=== PATIENT | male | born 1940 | race Caucasian/White ===

== ENCOUNTER 2023-11-09 08:55 | Emergency (ER) | payer OTHER, SELFPAY ==
[2023-11-09 09:06] VITALS: BP 127/70
--- NOTE | 2023-11-09 09:14 | ED.GENMED ---
History of Present Illness
General
Chief Complaint: Breathing Problem
Source: patient
Exam Limitations: none
Time Seen by Provider: 11/09/23 09:03
Nursing documentation reviewed up to this point in time: agreed with
Travel History
Have you had any contact with someone who has COVID-19?: No
Do you have any symptoms of coronavirus? Fever > 100 degrees, chills, cough, shortness of breath, sore throat, loss of taste or smell, muscle aches, or headache?: Yes
Symptoms:: SOb, cough
History of Present Illness
History of Present Illness:
83-year-old male coming from [facility] assisted living history of chronic respiratory failure on 2 L O2 nasal cannula, pulmonary fibrosis, hypertension, colon cancer status postchemotherapy remotely presents for increased cough overnight.
Patient says that he may chronically have a slight cough but it seems worse. He says 'if I had had my Robitussin I would not be here.' He says he coughed all night. He tried to get mucus up and would only occasionally bring some mucus up. He did
not feel overwhelmingly short of breath but he did bump up his oxygen from 2 L to 3 L this morning. EMS says when they got there and patient was on 2 L and satting 88% so they bumped him up to 4 or 5 L.
Patient had mild cyanosis of his lips according to EMS. He is not having any pain anywhere, leg swelling, fevers or chills, sore throat, vomiting or diarrhea.
he has been stable on 2L in
no fever, chills, chst pain, shortness of breath, vomiting, diarrhea, leg swelling, waekness
pt says he just wanted robitussin for his cough but is no longer couhging now
he is due for his morning duoneb
Past History
Past History
ED Past Medical History: Cancer (colon), COPD (pulmonary fibrosis), HTN, Hypercholesterolemia, NIDDM, Psychiatric (dementia) and Other (aortic aneurysm, BPH)
Social History
Tobacco: Non-smoker
Alcohol: None
Drug: None
Living: intermediate
Review of Systems
Review of Systems
Allergies reviewed?: Yes
All Other Systems: Not applicable
Phy Exam
Physical Exam
Physical Exam:
GENERAL: Alert , in no apparent distress
EYE: pupils equal and reactive
NECK: Supple
ENT: b/l TM s clear, pharynx erythematous but no tonsillar hypertrophy or exudates
Mild cyanosis of his lips
CARDIAC: Regular rate and rhythm, no edema
LUNGS: Crackles in the right lung posteriorly, end expiratory wheezes faintly, moving good air, not tachypneic, no cough while I was examining the patient
ABDOMEN: Soft, without focal tenderness, no r/g, no cvat, normal bowel sounds
NEUROLOGICAL: Alert and oriented, no focal neuro deficits
SKIN: Warm and dry, skin intact.
MUSCULOSKELETAL: No edema, well perfused.
PSYCH: Normal and appropriate interaction.
Scores
Heart Failure Risk
Heart Failure Risk Score: Not Applicable
Course
Orders/Labs/Results
Orders:
Orders
11/09/23 09:11
Electrocardiogram (*1) Urgent
Reason for Study: Shortness of Breath
EKG- Treatment ONCE
Ipratropium/Albuterol Sulfate [Duoneb] 3 ml INH R NOW STA
CR Chest - 2 Views Urgent
Comment:
Reason For Exam: sob, cough
11/09/23 09:24
COVID-19 Antigen Urgent
Source: Nasal Swab
Complete Blood Count/With Diff Urgent
Comprehensive Metabolic Panel Urgent
NT-proBNP Urgent
Troponin I Urgent
Comment: ADD ON
Influenza A+B Rapid Molecular Urgent
WALKER Source: Nasal Swab
Specimen Description:
11/09/23 09:38
Add On- LAB Urgent
Tests Added?: troponin
11/09/23 11:06
Guaifenesin/Dextromethorphan [Robitussin Dm] 5 ml PO NOW STA
Abnormal Lab Results
11/09/23
09:24
RBC 4.17 L 10^6/uL
(4.70-6.10)
Hgb 12.9 L g/dL
(13.0-18.0)
Hct 38.0 L %
(39.0-52.0)
Absolute Lymphs (auto) 0.4 L 10^3/uL
(1.2-3.4)
Neutrophils % 80.8 H %
(42.2-75.2)
Lymphocytes % 7.0 L %
(20.5-51.1)
Carbon Dioxide 31 H mmol/L
(22-30)
11/09/23 09:24
11/09/23 09:24
Vital Signs
Initial and Last Documented VS:
Initial Vital Signs
Temp Pulse Resp BP Pulse Ox
97.5 F 67 20 127/70 98
11/09/23 09:06 11/09/23 09:06 11/09/23 09:06 11/09/23 09:06 11/09/23 09:06
Last Documented Vital Signs
Temp Pulse Resp BP Pulse Ox
97.5 F 74 25 131/86 97
11/09/23 09:06 11/09/23 11:00 11/09/23 11:00 11/09/23 11:00 11/09/23 11:25
MDM/Problems Addressed
Differential Diagnosis Includes:
pneumonia, fibrosis, copd, PE
MDM/Problems Addressed:
83 y/o M with pulm fibrosis on chronic o2 2L
initially said he was up in the night coughing and wishes he had cough medication and if he had, he wouldn't have come in
but he was found to be more SOB and hypoxic today for RN at [facility]
PT NOW REMEMBERS THAT HIS O2 FELL OFF OVERNIGHT, WHEN HE WOKE UP HE WASN'T WEARING IT. so he put himself up to 3L and then was stil lhypoxic for RN so they called 911
pt has been on 5L and stable
turned down to 2L and watched for several hours, pulse ox 96%
no fever
well appearing
lungs with chronic chagnes related to pulm fibrosis
cxr indep reviewed by me and i spoke with rads, no new PNA
wbc normal
flu and covid neg
bnp normla
ekg subtle t wave flattening/inverion but neg trop
Discussed the possibility that it could be a PE though unlikely since the patient has been turned down to his 2 L and has been satting 96% with no shortness of breath and no pleuritic pain. He also has no cough here. He was given a DuoNeb and has
been doing very well. He would like to go home. I spoke with the nurse at [facility] to make her aware that if he became persistently hypoxic I would be concerned about a blood clot and he should return. Otherwise this was likely because the
patient had his oxygen off for an unknown timeframe overnight
*Critical Care Note
Total Time (30-74mins, 75-104mins- exclusive of procedures): Not Applicable
ED Attending Note
-
Portions of this chart may have been created with voice recognition software.� Occasional wrong word or��sound alike� substitutions may have occurred due to the inherent limitations of voice recognition software.
Discharge Plan
Departure
Patient Disposition: Home (Routine Discharge)
Date of Disposition: 11/09/23
Time of Disposition: 11:07
Patient with high blood pressure during this ER visit?: No
Condition: Fair
Covid-19: Negative COVID-19
Discharge Problem:
Cough, Chronic hypoxic respiratory failure
Instructions: Idiopathic Pulmonary Fibrosis (DC)
Prescriptions:
New
guaifenesin 100 mg/5 mL liquid
200 mg PO Q6H PRN (Reason: Cough) Qty: 473 0RF
No Action
sennosides [senna] 8.6 mg Tablet
17.2 mg PO DAILY
Rx Instructions:
08/04/2023, hold for loose stool.
acetaminophen [Tylenol] 325 mg Tablet
325 mg PO Q4HPRN PRN (Reason: mild pain/fever)
polyethylene glycol 3350 [Miralax] 17 gram Powder In Packet
17 g PO DAILY
tamsulosin 0.4 mg Capsule
0.4 mg PO HS
simethicone 80 mg Tablet,Chewable
80 mg PO Q6HPRN PRN (Reason: abdominal discomfort)
midodrine 10 mg Tablet
10 mg PO TID
Rx Instructions:
08/04/2023, hold for systolic BP greater than 150.
rosuvastatin 40 mg Tablet
40 mg PO HS
Systane (PF) 0.4-0.3 % Dropperette
1 drp BOTH EYES BID
ipratropium-albuterol 0.5 mg-3 mg(2.5 mg base)/3 mL Solution For Nebulization
3 ml INHALATION R BID
melatonin 3 mg Tablet
3 mg PO HS PRN (Reason: sleep)
docusate sodium [Colace] 100 mg Capsule
100 mg PO DAILY
celecoxib 100 mg Capsule
100 mg PO DAILY
fluticasone propionate 50 mcg/actuation [place],Suspension
1 spray INTRANASAL Q6HPRN PRN (Reason: allergies)
fludrocortisone 0.1 mg Tablet
0.2 mg PO DAILY
ezetimibe [Zetia] 10 mg Tablet
10 mg PO HS
levocetirizine 5 mg Tablet
5 mg PO HS
cholecalciferol (vitamin D3) [Vitamin D3] 50 mcg (2,000 unit) Capsule
50 mcg PO DAILY
potassium chloride 20 mEq Tablet Extended Release
20 meq PO DAILY
magnesium oxide 400 mg magnesium Tablet
400 mg PO DAILY
pantoprazole 40 mg Tablet,Delayed Release (Dr/Ec)
40 mg PO DAILY Qty: 30 0RF
Referrals:
Marques Lambert MD [Family Provider] - Follow up in 2-3 days
Activity Restrictions/Additional Instructions:
You had blood work and an x-ray which were reassuring that this is not pneumonia. You had recalled that you your oxygen fell off overnight and when he woke up you are coughing more and needed more oxygen than usual but we were able to bump you back
down to your 2 L and you did well. Your x-ray did not show any signs of pneumonia and your blood work was reassuring. Your EKG was subtly changed but you had no signs of a heart attack. If you were to have worsening shortness of breath, the need
for more oxygen, painful breathing etc. we could consider that this could be due to a blood clot and you would need evaluation for that. Please return immediately for any of those symptoms. Otherwise wear your 2 L of oxygen, we gave you a DuoNeb
for your lungs and you sound better. You can use Robitussin 2-3 times a day as needed for cough. Return to the ER for any concerns
Interventions
Interventions:
*Risk Screen - Suicide Last Done: 11/09/23 09:11
*Neglect/Abuse Screening Last Done: 11/09/23 09:11
ED- Fall Risk Assessment Last Done: 11/09/23 09:15
*ED COVID-19 Vaccine History Last Done: 11/09/23 09:15
*Nursing Disposition Last Done: 11/09/23 11:43
ED- Cardiac Assessment Last Done: 11/09/23 09:15
ED- Pulmonary Assessment Last Done: 11/09/23 09:15
Discharge Date and Time
Discharge Date/Time: 11/09/23 11:44
[2023-11-09] MEDS: DUONEB 3 ML INH (09:21)
[2023-11-09 09:34] LABS: % Basophils 0.5 % (0-2); % Eosinophils 2.4 % (0-6); % Immature Granulocytes 0.3 % (0-0.5); % Neutrophils 80.8 % (42.2-75.2); Absolute Eosinophils 0.2 10^3/uL (0-0.7); Absolute Lymphocytes 0.4 10^3/uL (1.2-3.4); Absolute Monocytes 0.6 10^3/uL (0.1-0.6); Hemoglobin 12.9 g/dL (13.0-18.0); Mean Corp Hgb Conc. 33.9 g/dL (33.0-37.0); Mean Corpuscular Hgb 30.9 pg (27.0-31.0); Mean Corpuscular Volume 91.1 fL (80.0-94.0); Mean Platelet Volume 8.6 fL (7.4-10.4); Nucleated Red Blood Cells % 0 % (-); Platelet Count 150 10^3/uL (130-400); Red Blood Cell Count 4.17 10^6/uL (4.70-6.10); Red Cell Dist. Width 13.6 % (11.5-14.5); White Blood Cell Count 6.1 10^3/uL (4.8-10.8)
[2023-11-09 09:45] LABS: ALT (SGPT) 21 U/L (0-50); AST (SGOT) 31 U/L (17-59); Albumin 3.7 g/dl (3.5-5.0); Alkaline Phosphatase 101 U/L (38-126); Blood Urea Nitrogen 13 mg/dl (9-20); COVID-19 Antigen Negative (Negative); Calcium 8.9 mg/dl (8.4-10.2); Carbon Dioxide 31 mmol/L (22-30); Chloride 101 mmol/L (98-107); Glucose 98 mg/dl (70-99); Potassium 3.7 mmol/L (3.5-5.1); Sodium 138 mmol/L (135-145); Total Protein 6.9 g/dl (6.3-8.2); eGFR > 60.00
[2023-11-09 09:52] LABS: NT-proBNP 209 pg/ml
[2023-11-09 10:05] VITALS: BP 141/79
[2023-11-09 10:16] LABS: Troponin I < 0.012 ng/ml
[2023-11-09 11:00] VITALS: BP 131/86
[2023-11-09] MEDS: ROBITUSSIN DM 5 ML PO (11:17)
== END 2023-11-09 11:44 | disposition home or self-care (01) ==
LOC: EMR 08:55
PROVIDERS: Physician Assistant; EMERGENCY PHYSICIAN Emergency Medicine; FAMILY PHYSICIAN Internal Medicine
DX: R05.9 Cough, unspecified (principal); J96.11 Chronic respiratory failure with hypoxia; J84.10 Pulmonary fibrosis, unspecified; Z11.52 Encounter for screening for COVID-19; Z99.81 Dependence on supplemental oxygen
CPT/HCPCS: 99285; 94640; 71046; 80053; 83880; 84484; 85025; 87502; 87811; 93005

== ENCOUNTER 2023-11-12 09:00 | Inpatient (IN) | payer OTHER, SELFPAY ==
[2023-11-12] VITALS (20 sets, daily range): BP systolic 118–151; BP diastolic 65–100; PULSE 70–96; O2SAT 97; BMI 23.4
--- NOTE | 2023-11-12 06:30 | ED.GENMED ---
History of Present Illness
General
Chief Complaint: Fall
Source: patient
Exam Limitations: none
Time Seen by Provider: 11/12/23 06:06
Nursing documentation reviewed up to this point in time: agreed with
Travel History
Have you had any contact with someone who has COVID-19?: No
Do you have any symptoms of coronavirus? Fever > 100 degrees, chills, cough, shortness of breath, sore throat, loss of taste or smell, muscle aches, or headache?: No
History of Present Illness
History of Present Illness:
[facility] unwitnessed syncopal episode, shortly prior to arrival. Patient states that he was walking back to his bed from restroom, when he 'passed out'. Patient knew that he was about to pass out, but does not
recall any preceding symptoms, i.e. dizziness/chest pain/shortness of breath/palpitations/nausea. Patient's spouse witnessed his fall and called for assistance. Patient feels as though he woke up immediately after hitting the floor. Patient is
only complaining of right big toe 'discomfort'. Denies headache. Denies dizziness. Denies blurred vision. Denies loss of sensation or weakness. Denies chest pain or shortness of breath. Denies nausea sensation. Denies recent illness. Patient
states that he has been eating well, but is unsure if he is drinking of water. Patient also reports having had similar episode 1 year ago, attributed to use of Flomax. Of note, patient was evaluated in ED 3 days ago secondary to hypoxia associated
with nonproductive cough. After evaluation, patient was discharged back to jail. Patient has history of COPD and wears 2 L of oxygen at all times. Today, upon arrival, patient is found to have initial pulse ox of 77%, improved with
increased oxygen.
Past History
Past History
ED Past Medical History: Cancer (colon), COPD (pulmonary fibrosis), HTN, Hypercholesterolemia, NIDDM, Psychiatric (dementia) and Other (aortic aneurysm, BPH)
Social History
Tobacco: Non-smoker
Alcohol: None
Drug: None
Living: jail
Review of Systems
Review of Systems
Allergies reviewed?: Yes
All Other Systems: ROS reviewed and negative except as documented in HPI and ROS
Constitutional: Reports no symptoms; Denies fever
EENT: Reports no symptoms
Respiratory: Reports trouble breathing; Denies cough
Cardiac: Reports syncope; Denies chest pain, diaphoresis or palpitations
ABD/GI: Reports no symptoms; Denies abdominal pain or nausea
: Reports no symptoms
Musculoskeletal: Reports other (toe pain)
Skin: Reports other (forehead abrasion)
Neurological: Reports no symptoms; Denies dizzy or headache
Phy Exam
Physical Exam
Physical Exam:
Physical Exam
General: mild distress, not acutely ill. afebrile
Head: superficial abrasion noted over right eyebrow without active bleeding. eomi
Neck: supple. normal range of motion.
Heart: s1/s2 regular rate and rhythm, no murmur. equal radial pulses.
Lungs: mild respiratory distress. diminished breath sounds bilaterally. mild right flank/upper back tenderness at level of rib#5-6, without crepitus, swelling/erythema/ecchymosis.
Abdomen: normal bowel sounds. not tender.
Neuro: alert and oriented. no focal neurological deficits
Skin: no rash
Psychiatric: well kept. interactive and cooperative
Extremities: no edema. no calf tenderness.
Course
Orders/Labs/Results
Orders:
Orders
11/12/23 Breakfast
Regular
At Your Request: Full Participation
11/12/23 06:07
Electrocardiogram (*1) Urgent
Reason for Study: Fatigue / Weakness
11/12/23 06:08
EKG- Treatment ONCE
11/12/23 06:30
CT Chest Pe Study Urgent
Comment:
Reason For Exam: hypoxia with syncope
CT Head W/o Iv Contrast Urgent
Comment:
Reason For Exam: trauma
11/12/23 06:40
CR Toe(s) Min 2 Vw Right Urgent
Comment:
Reason For Exam: trauma
Indicate Which Toe:: Great
11/12/23 06:48
Complete Blood Count/With Diff Urgent
Comprehensive Metabolic Panel Urgent
Glycohemoglobin (HgbA1c) Urgent
Magnesium Urgent
NT-proBNP Urgent
Comment: ADD ON
Troponin I Urgent
11/12/23 07:50
Dexamethasone Sod Phosphate [Decadron] 10 mg IV NOW STA
Ipratropium/Albuterol Sulfate [Duoneb] 3 ml .ROUTE .STK-MED ONE
Ipratropium/Albuterol Sulfate [Duoneb] 3 ml INH R NOW STA
11/12/23 07:53
Add On- LAB Urgent
Tests Added?: proBNP
Heparin Pf [Heparin Lock Flush] 500 unit .ROUTE .STK-MED ONE
11/12/23 08:03
Heparin Pf [Heparin Lock Flush] 500 unit IV NOW ONE
11/12/23 08:25
Potassium Chloride [KCl] 40 meq 0.9% Sodium Chloride 250 ml [Nss] 250 ml IV NOW
11/12/23 08:39
Admit/Transfer Patient As Directed
Co-Sign Provider:
Level of Care: Inpatient admission
Assign to:: IMU- Intermediate Care
Physician / Group: Hospitalist
Diagnosis: Acute Hypoxic resp failure, Syncope
Reason for Hospitalization: Acute Hypoxic resp failure, Syncope
Expected length of stay greater than two midnights?: Yes
ELOS- Estimated Length of Stay in days: 3
I certify the patient meets the requirements for IP care: Yes
11/12/23 08:42
Code Status As Directed
Resuscitation Status: Do not resuscitate
Reached after discussion with pt or family/Healthcare POA: Yes
Physician note:: pt and daughter
DNR Bracelet Application ONCE
11/12/23 08:45
Doxycycline [Vibramycin] 100 mg PO NOW STA
11/12/23 08:54
Add On- LAB Routine
Tests Added?: HbA1C
11/12/23 09:55
Celecoxib [Celebrex] 100 mg PO DAILY
Docusate Sodium [Colace] 100 mg PO DAILY
Fludrocortisone Acetate [Florinef] 0.2 mg PO DAILY
Guaifenesin Solution [Robitussin] 200 mg PO Q6HPRN PRN
Melatonin 3 mg PO HSPRN PRN
Pantoprazole [Protonix] 40 mg PO DAILY
Polyethylene Glycol Powder [Miralax] 17 grams PO DAILY
Potassium Chloride [KCl] 20 meq PO DAILY
Simethicone [Mylicon] 80 mg PO Q6HPRN PRN
fluticasone propionate 1 spray NASAL Q6HPRN PRN
11/12/23 09:55
PULMONARY CONSULT Routine
Consulting Provider: Deanna Chanel
Was physician already notified: Yes
Reason for consult: resp failure
Respiratory Culture/Gram Stain Urgent
WALKER Source: Sputum
Specimen Description:
Activity As Directed
Activity Level: Encourage Progressive Amb
Intake/ Output As Directed
Frequency: Per unit guidelines
Orthostatic Vital Signs As Directed
Orthostatic VS Frequency: BID
Vital Signs As Directed
Frequency: Per unit guidelines
Copd Education [RESP] Routine
Ot Eval And Treat Routine
Pt Eval And Treat Routine
Activity Level: Ambulate
DX Deep Vein Thrombosis Video Routine
11/12/23 10:24
Troponin I Q6H
11/12/23 11:00
Artificial Tears (Pf) [Refresh Eye Drops (Pf)] 1 drops BOTH EYES BID
11/12/23 12:00
Ipratropium/Albuterol Sulfate [Duoneb] 3 ml INH R QID
11/12/23 13:00
Midodrine [ProAmatine] 10 mg PO TID@0800,1300,1800
11/12/23 14:00
Dexamethasone Sod Phosphate [Decadron] 4 mg IV Q6H
11/12/23 15:55
Troponin I Q6H
11/12/23 18:00
Enoxaparin Sodium [Lovenox] 40 mg SC QPM
11/12/23 20:00
Doxycycline [Vibramycin] 100 mg PO Q12
11/12/23 22:00
Cetirizine HCl [Zyrtec] 5 mg PO HS
Ezetimibe [Zetia] 10 mg PO HS
Rosuvastatin Calcium [Crestor] 40 mg PO HS
Tamsulosin [Flomax] 0.4 mg PO HS
11/13/23 06:00
Basic Metabolic Panel IN AM
11/13/23 08:00
Cholecalciferol (Vitamin D3) [VITAMIN D3 (cholecalciferol)] 50 mcg PO DAILY
Magnesium l-Lactate [Mag-Tab Sr] 84 mg PO DAILY
Sennosides [Senokot] 17.2 mg PO DAILY
Abnormal Lab Results
11/12/23
06:48
RBC 3.83 L 10^6/uL
(4.70-6.10)
Hgb 11.9 L g/dL
(13.0-18.0)
Hct 35.1 L %
(39.0-52.0)
MCH 31.1 H pg
(27.0-31.0)
Plt Count 126 L 10^3/uL
(130-400)
Absolute Lymphs (auto) 0.5 L 10^3/uL
(1.2-3.4)
Absolute Monos (auto) 0.7 H 10^3/uL
(0.1-0.6)
Neutrophils % 78.3 H %
(42.2-75.2)
Lymphocytes % 7.7 L %
(20.5-51.1)
Monocytes % 10.2 H %
(1.7-9.3)
Potassium 3.2 L mmol/L
(3.5-5.1)
Creatinine 0.6 L mg/dL
(0.7-1.3)
Glucose 105 H mg/dl
(70-99)
Albumin 3.4 L g/dl
(3.5-5.0)
11/12/23 06:48
11/12/23 06:48
Vital Signs
Initial and Last Documented VS:
Initial Vital Signs
Temp Pulse Resp BP Pulse Ox
98.1 F 88 22 119/65 77
11/12/23 05:56 11/12/23 05:56 11/12/23 05:56 11/12/23 05:56 11/12/23 05:56
Last Documented Vital Signs
Temp Pulse Resp BP Pulse Ox
97.1 F 93 20 132/100 98
11/12/23 12:00 11/12/23 12:00 11/12/23 12:00 11/12/23 12:00 11/12/23 11:45
MDM/Problems Addressed
MDM/Problems Addressed:
CT PE study ordered secondary to recurrent hypoxia with syncope.
Patient placed on mid flow oxygen with initial improvement.
CT without any acute pulmonary embolism. No evidence of pneumonia. Bronchial thickening noted along with interstitial edema.
During CT, patient noted to desaturate into the 70s. Upon completion of CT scan, patient given nebulizer treatment, Decadron, and placed on high flow oxygen. Patient will be admitted to ICU for further evaluation and treatment.
*EKG
Interpreted by ED Provider?: Yes
EKG Intrepretation Date: 11/12/23
Heart Rate: 69
Rate: normal
Rhythm: sinus
[place]: normal axis
Interval: normal interval
Ischemia: T-wave inversion
*Critical Care Note
Total Time (30-74mins, 75-104mins- exclusive of procedures): Not Applicable
ED Attending Note
-
Portions of this chart may have been created with voice recognition software.� Occasional wrong word or��sound alike� substitutions may have occurred due to the inherent limitations of voice recognition software.
Discharge Plan
Departure
Patient Disposition: Admit
Date of Disposition: 11/12/23
Time of Disposition: 08:07
Admit to: ICU
Presentation/result/management discussed w/ accepting MD/DO: Hospitalist
Condition: Fair
Discharge Problem:
Syncope, Hypoxia, COPD exacerbation
Interventions
Interventions:
*Risk Screen - Suicide Last Done: 11/12/23 05:56
*General Assessment Last Done: 11/12/23 05:56
*Neglect/Abuse Screening Last Done: 11/12/23 05:56
ED- Fall Risk Assessment Last Done: 11/12/23 05:56
*ED COVID-19 Vaccine History Last Done: 11/12/23 05:56
*Nursing Disposition Last Done: 11/12/23 09:30
ED-Musculoskeletal Assessment Last Done: 11/12/23 06:52
ED- Neurological Assessment Last Done: 11/12/23 07:13
ED-Skin Assessment Last Done: 11/12/23 06:59
Discharge Date and Time
Discharge Date/Time: 11/12/23 09:35
[2023-11-12 07:01] LABS: % Basophils 0.3 % (0-2); % Eosinophils 3.2 % (0-6); % Immature Granulocytes 0.3 % (0-0.5); % Lymphocytes 7.7 % (20.5-51.1); % Monocytes 10.2 % (1.7-9.3); % Neutrophils 78.3 % (42.2-75.2); Absolute Eosinophils 0.2 10^3/uL (0-0.7); Absolute Lymphocytes 0.5 10^3/uL (1.2-3.4); Absolute Monocytes 0.7 10^3/uL (0.1-0.6); Absolute Neutrophils 5.4 10^3/uL (1.4-6.5); Hematocrit 35.1 % (39.0-52.0); Hemoglobin 11.9 g/dL (13.0-18.0); Mean Corp Hgb Conc. 33.9 g/dL (33.0-37.0); Mean Corpuscular Hgb 31.1 pg (27.0-31.0); Mean Corpuscular Volume 91.6 fL (80.0-94.0); Mean Platelet Volume 9.1 fL (7.4-10.4); Nucleated Red Blood Cells % 0 % (-); Platelet Count 126 10^3/uL (130-400); Red Blood Cell Count 3.83 10^6/uL (4.70-6.10); Red Cell Dist. Width 13.8 % (11.5-14.5); White Blood Cell Count 6.9 10^3/uL (4.8-10.8)
[2023-11-12 07:19] LABS: ALT (SGPT) 17 U/L (0-50); AST (SGOT) 29 U/L (17-59); Albumin 3.4 g/dl (3.5-5.0); Alkaline Phosphatase 100 U/L (38-126); Blood Urea Nitrogen 13 mg/dl (9-20); Calcium 8.4 mg/dl (8.4-10.2); Carbon Dioxide 30 mmol/L (22-30); Chloride 104 mmol/L (98-107); Estimated Creatinine Clearance 90 ml/min; Glucose 105 mg/dl (70-99); Magnesium 1.8 mg/dl (1.6-2.3); Potassium 3.2 mmol/L (3.5-5.1); Sodium 137 mmol/L (135-145); Total Bilirubin 0.9 mg/dl (0.2-1.3); Total Protein 6.5 g/dl (6.3-8.2); eGFR > 60.00
[2023-11-12 07:31] LABS: Troponin I 0.022 ng/ml
[2023-11-12] MEDS: DUONEB 3 ML INH ×4 (07:59→19:24)
[2023-11-12] MEDS: DECADRON 10 MG IV (08:02)
--- NOTE | 2023-11-12 08:15 | HPS.HSE ---
Family Physician
-
Family Physician: Marques Lambert
Chief Complaint
-
Syncope
History of Present Illness
82-year-old male presented to the hospital after an episode of syncope. He was walking in his bedroom from the restroom when he passed out. He felt sensation of fainting. No chest pain or palpitations. Patient was seen in the ER 3 days ago for
hypoxia and . Patient stated that he has been bringing up some phlegm with cough now. No fever. Patient states that he has generalized weakness but no other symptoms of focal weakness, numbness tingling or headache.
Medical History
Past Medical History
Past Medical History: Reports Other
Additional Past Medical History:
Dementia,Idiopathic pulmonary fibrosis, hyperlipidemia, arthritis, hearing impairment, orthostatic hypotension, diabetes, prostate disease with labs, infrarenal abdominal aortic aneurysm 3.2 cm, ambulatory dysfunction, gallstones. Finished
chemotherapy for colon cancer November 2022. COVID-19 infection 1 month ago
Past Surgical History: Reports Other
Additional Past Surgical History:
Surgery for colon cancer-right hemicolectomy history of procedure for hepatic abscess
Social History
Tobacco: Former Smoker
Alcohol: None
Drug: None
Personal:
Living: Assisted Living
Family History
Family History: Cancer (Mother with breast cancer)
Allergies / Home Medications
Allergies reflects when Allergies were last updated in [facility].
Home Medications with original date entered in [facility]
Allergy/Medication List:
Allergies
Allergy/AdvReac Type Severity Reaction Status Date / Time
No Known Allergies Allergy Verified 11/12/23 05:56
Home Medications
acetaminophen 325 mg tablet (Tylenol) 650 mg PO Q4HPRN PRN mild pain/fever 08/04/23
midodrine 10 mg tablet 10 mg PO TID Blood Pressure 08/04/23
peg 400-propylene glycol (PF) 0.4 %-0.3 % eye drops in a dropperette (Systane (PF)) 1 drp BOTH EYES BID Eye Condition 08/04/23
polyethylene glycol 3350 17 gram oral powder packet (Miralax) 17 g PO DAILY Constipation 08/04/23
rosuvastatin 40 mg tablet 40 mg PO HS High Cholesterol 08/04/23
sennosides 8.6 mg tablet (senna) 17.2 mg PO HS Constipation 08/04/23
simethicone 80 mg chewable tablet 80 mg PO Q6HPRN PRN abdominal discomfort 08/04/23
tamsulosin 0.4 mg capsule 0.4 mg PO HS Urinary Issue 08/04/23
celecoxib 100 mg capsule 100 mg PO DAILY Pain 08/05/23
cholecalciferol (vitamin D3) 50 mcg (2,000 unit) capsule (Vitamin D3) 50 mcg PO DAILY Supplement 08/05/23
docusate sodium 100 mg capsule (Colace) 100 mg PO DAILY Constipation 08/05/23
ezetimibe 10 mg tablet (Zetia) 10 mg PO HS High Cholesterol 08/05/23
fludrocortisone 0.1 mg tablet 0.2 mg PO DAILY fluid balance 08/05/23
fluticasone propionate 50 mcg/actuation nasal spray,suspension 1 spray intranasal Q6HPRN PRN allergies 08/05/23
ipratropium 0.5 mg-albuterol 3 mg (2.5 mg base)/3 mL nebulization soln 3 ml inhalation R BID Lung/Breathing Issues 08/05/23
levocetirizine 5 mg tablet 5 mg PO HS Allergies 08/05/23
magnesium oxide 400 mg PO DAILY Electrolyte Repletion 08/05/23
melatonin 3 mg tablet 3 mg PO HSPRN PRN sleep 08/05/23
potassium chloride 20 mEq tablet,extended release 20 meq PO DAILY 08/05/23
pantoprazole 40 mg tablet,delayed release 40 mg PO DAILY #30 tabs 08/08/23
guaifenesin 100 mg/5 mL oral liquid 200 mg PO QID 11/12/23
Review of Systems
-
A 12 point ROS was completed and negative except as noted: Yes
Constitutional: Reports Fatigue
Cardiac: Denies Chest Pain or Palpitations
Abdomen/GI: Denies Abdominal Pain
Neurological: Reports Dizzy; Denies Headache, Weakness or Numbness
Physical Exam
Vital Signs
Vital Signs
Temp Pulse Resp BP Pulse Ox
98.1 F 69 25 119/65 95
11/12/23 05:56 11/12/23 07:00 11/12/23 07:00 11/12/23 06:46 11/12/23 07:01
Physical Exam
General: Conversant and Respiratory Distress
Respiratory: Rales
Cardiac: S1/S2, Regular Rhythm and Murmur ([place])
Musculoskeletal: Other (No tenderness in any joints noted except mild pain in the right big toe)
Skin: Warm and Other (Small laceration injury dorsal right big toe, right forehead)
Neuro: Awake, Alert, Oriented, No Motor Deficits and Nonfocal/grossly intact
Psych: Calm
Laboratory Results
-
11/12/23 06:48
11/12/23 06:48
Laboratory Results
Total Bilirubin 0.9 mg/dl (0.2-1.3) 11/12/23 06:48
AST 29 U/L (17-59) 11/12/23 06:48
ALT 17 U/L (0-50) 11/12/23 06:48
Alkaline Phosphatase 100 U/L (38-126) 11/12/23 06:48
Troponin I 0.022 ng/ml 11/12/23 06:48
Data Reviewed
-
Diagnostic Radiology: Report Reviewed by me (X-ray of the toe no acute changes)
CT Scan: Image Personally Visualized and interpreted (CT of the chest-no PE chronic interstitial/fibrotic changes groundglass opacity) and Report Reviewed by me (Head CT-no acute changes. Diffuse cortical atrophy with nonspecific white matter
changes. Chronic bilateral maxillary sinus inflammatory changes.)
Medical Tests (Nuc Med, Echo, EKG etc): Image Personally Visualized and interpreted (EKG-sinus rhythm 92 ischemia inferior infarct age undetermined)
Impression/Plan
-
IMPRESSION/PLAN:
# Syncope
Patient has a history of orthostatic hypotension
Monitor on telemetry for any arrhythmias
Check orthostatic vital signs
Check troponins
Unclear if he had a mucous plug as he was also in respiratory distress when he came in.
No PE
# Acute on chronic hypoxic respiratory failure
Patient is chronically on 2 L of oxygen
On high flow now
CT reviewed by me
Start doxycycline
Sputum culture
Steroids Decadron 4 mg every 6 hours with a quick taper for COPD exacerbation
Nebulizer treatments
Mucolytic's
Pulmonary consultation requested
# Hypokalemia-replace p.o. and IV
# Chronic orthostatic hypotension on midodrine and Florinef
# COVID-19 infection 1 month ago
# Stage IV colon cancer--recurrence from previous-completed chemotherapy November 2022
History of right hemicolectomy several years ago
Being followed by [facility] oncology
# Idiopathic pulmonary fibrosis
# Hyperlipidemia-continue statin and Zetia
# Prostate disease-continue Flomax
# History of liver abscess with drainage
# Diabetes by history-check hemoglobin A1c
# Dementia per history
# Infrarenal abdominal aortic aneurysm 3.2 cm
# Ambulatory dysfunction
# Ex-smoker quit 1968
# DVT prophylaxis-Lovenox
# DNR status per discussion with patient and daughter at bedside
Discussed with ER attending
Discussed with daughter at bedside
Imaging and EKG reviewed by me
Old chart reviewed
Time spent over 75-minutes
[2023-11-12] MEDS: KCL 270 MEQ IV (08:47)
[2023-11-12 08:54] LABS: NT-proBNP 315 pg/ml
[2023-11-12] MEDS: VIBRAMYCIN 100 MG PO ×2 (08:54→20:25)
--- NOTE | 2023-11-12 09:17 | CON.PUL ---
Consultation
Consultation Request
Date/Time Consultation Requested: 11/12/23
Date/Time Consultation Performed: 11/12/23
Performing Provider: Yanique
Reason for Consultation: SOB/ILD
Medical History
-
History of Present Illness:
Patient is an 82-year-old male, with past history of ILD, chronic hypoxemia on baseline 2L NC [facility] HLD presented to the hospital after an episode of syncope. He was walking in his bedroom from the restroom when he passed out. Initial
head CT showing no acute findings. On arrival, he was notably hypoxemic with increased WOB, placed on HFNC. CT showing diffuse ILD, no comparative studies for eval of disease progression. He follows with Dr Mendoza at [facility] and told he has
25% lung function. He is not currently on anti-fibrotic therapy.
He has advanced directives stating no CPR/intubation, he is currently DNR.
Past Medical History
Past Medical History: Other (see list below)
Social History
Tobacco: Former Smoker
Alcohol: None
Drug: None
Family History
Family History: Reviewed & Not Pertinent
Allergies / Home Medications
Allergies
Allergy/AdvReac Type Severity Reaction Status Date / Time
No Known Allergies Allergy Verified 11/12/23 05:56
Home Medications
�Medication �Instructions �Recorded �Confirmed �Last Taken �Type
acetaminophen 325 mg tablet 650 mg PO Q4HPRN PRN mild 08/04/23 11/12/23 11/08/23 History
(Tylenol) pain/fever
midodrine 10 mg tablet 10 mg PO TID Blood Pressure 08/04/23 11/12/23 11/08/23 History
peg 400-propylene glycol (PF) 0.4 1 drp BOTH EYES BID Eye Condition 08/04/23 11/12/23 11/08/23 History
%-0.3 % eye drops in a dropperette
(Systane (PF))
polyethylene glycol 3350 17 gram 17 g PO DAILY Constipation 08/04/23 11/12/23 11/08/23 History
oral powder packet (Miralax)
rosuvastatin 40 mg tablet 40 mg PO HS High Cholesterol 08/04/23 11/12/23 11/08/23 History
sennosides 8.6 mg tablet (senna) 17.2 mg PO HS Constipation 08/04/23 11/12/23 11/08/23 History
simethicone 80 mg chewable tablet 80 mg PO Q6HPRN PRN abdominal 08/04/23 11/12/23 11/08/23 History
discomfort
tamsulosin 0.4 mg capsule 0.4 mg PO HS Urinary Issue 08/04/23 11/12/23 11/08/23 History
celecoxib 100 mg capsule 100 mg PO DAILY Pain 08/05/23 11/12/23 11/08/23 History
cholecalciferol (vitamin D3) 50 50 mcg PO DAILY Supplement 08/05/23 11/12/23 11/08/23 History
mcg (2,000 unit) capsule (Vitamin
D3)
docusate sodium 100 mg capsule 100 mg PO DAILY Constipation 08/05/23 11/12/23 11/08/23 History
(Colace)
ezetimibe 10 mg tablet (Zetia) 10 mg PO HS High Cholesterol 08/05/23 11/12/23 11/08/23 History
fludrocortisone 0.1 mg tablet 0.2 mg PO DAILY fluid balance 08/05/23 11/12/23 11/08/23 History
fluticasone propionate 50 1 spray intranasal Q6HPRN PRN 08/05/23 11/12/23 11/08/23 History
mcg/actuation nasal allergies
spray,suspension
ipratropium 0.5 mg-albuterol 3 mg 3 ml inhalation R BID 08/05/23 11/12/23 11/08/23 History
(2.5 mg base)/3 mL nebulization Lung/Breathing Issues
soln
levocetirizine 5 mg tablet 5 mg PO HS Allergies 08/05/23 11/12/23 11/08/23 History
magnesium oxide 400 mg PO DAILY Electrolyte 08/05/23 11/12/23 11/08/23 History
Repletion
melatonin 3 mg tablet 3 mg PO HSPRN PRN sleep 08/05/23 11/12/23 11/08/23 History
potassium chloride 20 mEq 20 meq PO DAILY 08/05/23 11/12/23 11/08/23 History
tablet,extended release
pantoprazole 40 mg tablet,delayed 40 mg PO DAILY #30 tabs 08/08/23 11/12/23 11/08/23 Rx
release
guaifenesin 100 mg/5 mL oral liquid 200 mg PO QID 11/12/23 11/12/23 Unknown History
Review of Systems
-
History Source: Patient
All other systems: Negative unless noted
Vitals / Labs / Diagnostic Testing
Vital Signs
Temp Pulse Resp BP Pulse Ox
98.1 F 72 27 129/66 95
11/12/23 05:56 11/12/23 09:00 11/12/23 09:00 11/12/23 09:00 11/12/23 08:45
Lab Data
11/12/23 06:48
11/12/23 06:48
Diagnostic Testing:
Physical Exam
-
HEENT: Normocephalic, Anicteric and Moist Mucous Membranes
Cardiovascular: S1/S2 and Regular Rhythm
Respiratory: Rales and Non-Labored Respirations
GI: Soft, Non Distended and Non Tender
Neurology: Awake, Alert, Oriented, AO x 3 and No Motor Deficits
Skin: Warm, Dry and Good Color
General: Comfortable and Other (NAD)
Assessment
-
Patient is an 82-year-old male, with past history of ILD, chronic hypoxemia on baseline 2L NC [facility], HLD presented to the hospital after an episode of syncope. He was walking in his bedroom from the restroom when he passed out. Initial
head CT showing no acute findings. On arrival, he was notably hypoxemic with increased WOB, placed on HFNC. CT showing diffuse ILD, no comparative studies for eval of disease progression. We are consulted for eval.
Acute on chronic respiratory failure now on HFNC
Underlying pulm fibrosis on O2 2L as baseline
Hypokalemia
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
Orthostatic Hypotension
Colon Cancer, s/p R hemicolectomy
DM-II
Senile Dementia
Hypertension
Pulmonary Fibrosis
Not on antifibrotic meds
He follows with Dr Mendoza at [facility] and told he has 25% lung function.
Chronic Hypoxemic Respiratory Failure, 2L at baseline, has needed up to 6L
Hepatic Abscess / Sepsis
BPH with LUTS
Infrarenal abdominal aortic aneurysm measuring 3.1 cm.
Ambulatory Dysfunction
Hearing loss
Former Smoker (Quit smoking in 1968)
Plan
At this time, patient is on HFNC, appears comfortable, sats are improved
Reportedly in 60s sustained on arrival
Can wean to midflow if able, reviewed plan with RT
Can obtain VBG as he has signs of metabolic alkalosis
Interstitial disease per imaging noted, difficult to confirm underlying pneumonia/disease progression without prior comparative films
He self reports that his lung function is 25%
Follows with Dr Mendoza at [facility]
Agree with IV steroids
Continue JOAQUÍN alb nebs (return to prn DNs post d/c)
proBNP not significant elevated, but volume status may be difficult to discern in ILD pts
If not clinically improving, may need to consider advanced procedures
Overall prognosis appears poor with severe decrease in lung function
He has advanced directives stating no CPR/intubation, he is currently DNR.
I confirmed current code status today at bedside.
Return to [facility] follow up after d/c. Reviewed with primary service
We will follow
Diagnostic Data
CXR 11/09/23- No acute cardiopulmonary process. Persistent severe bilateral interstitial fibrosis similar to previous exams.
CXR 12-20 c/w below, some interim clearing of bilateral patchy infiltrates
CXR 08-04-23, no comparison films, portable, bilateral fibrotic changes, patchy areas of infiltrates of unknown chronicity, mildly elevated R diaphragm. R chest port-A-cath
CT CHEST 11/12/23- No evidence of central pulmonary embolism. Findings with prominent bilateral chronic interstitial/fibrotic changes. Some groundglass opacification bilaterally, nonspecific, possibly representing some acute pulmonary edematous
changes.
CT HEAD 11/12/23- No acute intracranial abnormalities. Findings compatible with diffuse cortical atrophy with nonspecific white matter changes. Chronic bilateral maxillary sinus inflammatory changes.
CT abd/p c/IV 08-04-23
COMPARISON: 07/27/2023.
IMPRESSION: Stable examination. No new or acute abnormality within the abdomen or pelvis. Stable chronic interstitial fibrotic changes. Stable small low-attenuation hepatic structures. Stable Subtle density along the dependent margin could represent
sludge. No gallbladder wall thickening appreciated. No bile duct dilatation. Stable small low-attenuation pancreatic mass. Stable nonobstructing renal calculi. Stable bilateral renal cystic structures. Mild to moderate colonic fecal burden. No
evidence of bowel obstruction. No bowel wall thickening. Stable infrarenal abdominal aortic aneurysm measuring 3.1 cm.
[2023-11-12] MEDS: MIRALAX 17 GRAMS PO (11:04)
[2023-11-12] MEDS: ROBITUSSIN 200 MG PO ×2 (11:04→20:25)
[2023-11-12] MEDS: MAG-TAB SR 84 MG PO (11:05)
[2023-11-12] MEDS: REFRESH EYE DROPS (PF) 1 DROPS BOTH EYES ×2 (11:05→20:25)
[2023-11-12] MEDS: PROTONIX 40 MG PO (11:05)
[2023-11-12] MEDS: FLORINEF 0.200000000000000011 MG PO (11:05)
[2023-11-12] MEDS: KCL 20 MEQ PO (11:05)
[2023-11-12] MEDS: COLACE 100 MG PO (11:05)
[2023-11-12] MEDS: CELEBREX 100 MG PO (11:06)
[2023-11-12 11:24] LABS: Troponin I 0.045 ng/ml
--- NOTE | 2023-11-12 12:10 | PTCARENOTE ---
First unit of PRBC's hung per order. Pt tolerating well. IVF reduced to 50ml/hr per orders while blood is infusing.
[2023-11-12 12:16] LABS: Glycohemoglobin (HgbA1c) 5.5 % (4.0-5.6)
[2023-11-12] MEDS: DECADRON 4 MG IV ×2 (13:31→20:25)
[2023-11-12] MEDS: ProAmatine 10 MG PO ×2 (13:31→17:08)
[2023-11-12 13:35] LABS: Venous Blood Gas B.E. 5.9 mmol/L (-4 to +4); Venous Blood Gas HCO3 31.7 mmol/L (22-27); Venous Blood Gas O2 Sat % 98.4 %; Venous Blood Gas pCO2 50 mmHg (35-48); Venous Blood Gas pH 7.41 (7.32-7.43); Venous Blood Gas pO2 190 mmHg (30-50)
--- NOTE | 2023-11-12 14:13 | PTCARENOTE ---
Pt presents as assessed. Aox3, forgetful but pleasant. NSR on tele monitor. Received on HFNC and transitioned to 10L MFNC by Rt. Pt tolerating well with sats in the mid to high 90's. Voiding in urinal. OOB to chair. Ringing appropriately, call davis
within reach.
[2023-11-12] MEDS: LOVENOX 40 MG SC (17:08)
--- NOTE | 2023-11-12 20:40 | PTCARENOTE ---
PT AAOX3, friends at bedside visiting. Pt SPO2 96% on 6L midflow. Pt has no complaints at this time. Assessment care and vitals as charted.
[2023-11-12 20:50] LABS: Troponin I 0.025 ng/ml
[2023-11-12] MEDS: ZYRTEC 5 MG PO (21:05)
[2023-11-12] MEDS: ZETIA 10 MG PO (21:05)
[2023-11-12] MEDS: FLOMAX 0.400000000000000022 MG PO (21:05)
[2023-11-12] MEDS: CRESTOR 40 MG PO (21:05)
[2023-11-13] VITALS (20 sets, daily range): BP systolic 109–152; BP diastolic 62–98; PULSE 79–101; O2SAT 96; BMI 23.0
[2023-11-13] MEDS: DECADRON 4 MG IV ×4 (02:20→23:22)
[2023-11-13 05:26] LABS: Blood Urea Nitrogen 22 mg/dl (9-20); Calcium 8.8 mg/dl (8.4-10.2); Carbon Dioxide 31 mmol/L (22-30); Chloride 103 mmol/L (98-107); Estimated Creatinine Clearance 90 ml/min; Glucose 137 mg/dl (70-99); Potassium 4.1 mmol/L (3.5-5.1); Sodium 137 mmol/L (135-145); eGFR > 60.00
[2023-11-13] MEDS: DUONEB 3 ML INH ×4 (07:40→19:21)
[2023-11-13] MEDS: ProAmatine 10 MG PO ×3 (09:00→17:35)
[2023-11-13] MEDS: CELEBREX 100 MG PO (09:01)
[2023-11-13] MEDS: FLORINEF 0.200000000000000011 MG PO (09:02)
[2023-11-13] MEDS: KCL 20 MEQ PO (09:02)
[2023-11-13] MEDS: PROTONIX 40 MG PO (09:02)
[2023-11-13] MEDS: SENOKOT 17.1999999999999993 MG PO (09:02)
[2023-11-13] MEDS: REFRESH EYE DROPS (PF) 1 DROPS BOTH EYES ×2 (09:02→20:16)
[2023-11-13] MEDS: VITAMIN D3 (cholecalciferol) 50 MCG PO (09:03)
[2023-11-13] MEDS: ROBITUSSIN 200 MG PO ×4 (09:03→20:16)
[2023-11-13] MEDS: COLACE 100 MG PO (09:03)
[2023-11-13] MEDS: MIRALAX 17 GRAMS PO (09:03)
[2023-11-13] MEDS: MAG-TAB SR 84 MG PO (09:03)
[2023-11-13] MEDS: VIBRAMYCIN 100 MG PO ×2 (09:03→20:15)
--- NOTE | 2023-11-13 10:24 | W.PN.HOSP.TC ---
Addendum entered and electronically signed by Jose Linares MD 11/13/23 17:56:
Spoke to daughter and updated.
Original Note:
Today's Communication/Plan
-
Sputum culture
Add Acapella
Mucolytic's
Encourage expectoration
Wean oxygen as tolerated
Assessment / Plan
Assessment / Plan
Cardiovascular system S1-S2 appreciated
Chest bilateral rales
Abdomen soft and nontender
No pedal edema
Nonfocal neuroexam
# Syncope
Patient has a history of orthostatic hypotension
Monitor on telemetry for any arrhythmias
Check orthostatic vital signs
Check troponins
Unclear if he had a mucous plug as he was also in respiratory distress when he came in.
No PE
# Acute on chronic hypoxic respiratory failure
Patient is chronically on 2 L of oxygen
Off high flow now- On 10 L now
Add Acapella
Repeat Sputum Cx
Start doxycycline, may consider changing to quinolones if no improvement
Sputum culture
Steroids Decadron 4 mg every 6 hours with a quick taper for COPD exacerbation
Nebulizer treatments
Mucolytic's
Pulmonary consultation appreciated ,wean oxygen as tolerated
Speech evaluation
# Hypokalemia-replaced

# Chronic orthostatic hypotension on midodrine and Florinef
# COVID-19 infection 1 month ago
# Stage IV colon cancer--recurrence from previous-completed chemotherapy November 2022
History of right hemicolectomy several years ago
Being followed by [facility] oncology
# Idiopathic pulmonary fibrosis
# Hyperlipidemia-continue statin and Zetia
# Prostate disease-continue Flomax
# History of liver abscess with drainage
# Diabetes by history-hemoglobin A1c 5.5
# Dementia per history
# Infrarenal abdominal aortic aneurysm 3.2 cm
# Ambulatory dysfunction
# Ex-smoker quit 1968
# DVT prophylaxis-Lovenox
# DNR status per discussion with patient and daughter at bedside
D/W Nursing at bed side
Anticipated Discharge: > 48 hours
Subjective/Interval History
-
Date of Service: November 13, 2023
Objective Data
-
Labs:
Laboratory Results
11/13/23
04:28
Sodium 137
Potassium 4.1 D
Chloride 103
Carbon Dioxide 31 H
BUN 22 H
Creatinine 0.6 L
Glucose 137 H
Calcium 8.8
Vital Signs:
Vital Signs
Temp Pulse Resp BP Pulse Ox
97.8 F 85 26 128/69 96
11/13/23 07:28 11/13/23 09:00 11/13/23 07:41 11/13/23 09:00 11/13/23 07:41
I&O
11/12/23 11/13/23 11/14/23
06:59 06:59 06:59
Intake Total 460 / 460 360 / 360
Output Total 1070 / 1070 400 / 400
Balance -610 / -610 -40 / -40
--- NOTE | 2023-11-13 12:13 | CM ---
Patient who resides at [facility] with Dx Syncope, Acute on chronic hypoxic respiratory failure. O2 15L midflow. Receiving IV Decadron. PT & OT recommend skilled rehab. Per nurse assessment, A/O, forgetful.
Met with patient who was alert/seemed oriented however did not have his hearing aides in, and was difficult to converse with. [facility]
Spoke with Farhana, patient's daughter;
the patient resides with his at [facility] in the Personal Care Unit.
Daughter says that the patient's health has deteriorated in the last 18 months.
He recently has had memory impairment, He is forgetful, and mood swings toward his daughter.
She feels her father is not accepting that he is no longer in charge of everything.
The patient is assisted with ADLs including bathing/dressing/meals.
He is ambulatory with his RW
DME - RW, SPC, w/c, home O2 concentrator & portables through [facility]
VN - prior [facility]
SNF - prior [facility]
PCP - Marques Lambert
Pharmacy - Contract
Farhana would like her father to go to [facility] again for rehab.
Referral to [facility] SNF.
Plan follow patient's O2 needs.
Plan follow up with [facility] for acceptance.
--- NOTE | 2023-11-13 12:31 | W.PN.PUL3 ---
Today's Communication / Plan
-
Wean O2 further as tolerated, baseline use of 2L NC
IV steroids, can wean dose today
Encouraged OOB, IS, PT
Continue nebs, supportive care
Assessment
-
Patient is an 82-year-old male, with past history of ILD, chronic hypoxemia on baseline 2L NC following at [facility] presented to the hospital after an episode of syncope. He was walking in his bedroom from the restroom when he passed out. Initial
head CT showing no acute findings. On arrival, he was notably hypoxemic with increased WOB, placed on HFNC. CT showing diffuse ILD, no comparative studies for eval of disease progression. We are consulted for eval.
Acute on chronic respiratory failure now on HFNC
Underlying pulm fibrosis on O2 2L as baseline
Hypokalemia
Chronic hypercarbia, compensated
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
Orthostatic Hypotension
Colon Cancer, s/p R hemicolectomy
DM-II
Senile Dementia
Hypertension
Pulmonary Fibrosis
Not on antifibrotic meds
He follows with Dr Mendoza at [facility] and told he has 25% lung function.
Chronic Hypoxemic Respiratory Failure, 2L at baseline, has needed up to 6L
Hepatic Abscess / Sepsis
BPH with LUTS
Infrarenal abdominal aortic aneurysm measuring 3.1 cm.
Ambulatory Dysfunction
Hearing loss
Former Smoker (Quit smoking in 1968)
Plan
Patient was on HFNC, weaned to 10L midflow, baseline use of 2L at home
Reportedly in 60s sustained on arrival
Can wean to midflow if able, reviewed plan with RT
VBG -- confirms chronic mild compensated hypercarbia
Interstitial disease per imaging noted, difficult to confirm underlying pneumonia/disease progression without prior comparative films
He self reports that his lung function is 25%
Follows with Dr Mendoza at [facility]
Agree with IV steroids
Continue JOAQUÍN alb nebs (return to prn DNs post d/c)
proBNP not significant elevated, but volume status may be difficult to discern in ILD pts
If not clinically improving, may need to consider advanced procedures
Overall prognosis appears poor with severe decrease in lung function
He has advanced directives stating no CPR/intubation, he is currently DNR.
I confirmed current code status today at bedside.
Return to pulm [facility] follow up after d/c. Reviewed with primary service
Diagnostic Data
CXR 11/09/23- No acute cardiopulmonary process. Persistent severe bilateral interstitial fibrosis similar to previous exams.
CXR 12-20 c/w below, some interim clearing of bilateral patchy infiltrates
CXR 08-04-23, no comparison films, portable, bilateral fibrotic changes, patchy areas of infiltrates of unknown chronicity, mildly elevated R diaphragm. R chest port-A-cath
CT CHEST 11/12/23- No evidence of central pulmonary embolism. Findings with prominent bilateral chronic interstitial/fibrotic changes. Some groundglass opacification bilaterally, nonspecific, possibly representing some acute pulmonary edematous
changes.
CT HEAD 11/12/23- No acute intracranial abnormalities. Findings compatible with diffuse cortical atrophy with nonspecific white matter changes. Chronic bilateral maxillary sinus inflammatory changes.
CT abd/p c/IV 08-04-23
COMPARISON: 07/27/2023.
IMPRESSION: Stable examination. No new or acute abnormality within the abdomen or pelvis. Stable chronic interstitial fibrotic changes. Stable small low-attenuation hepatic structures. Stable Subtle density along the dependent margin could represent
sludge. No gallbladder wall thickening appreciated. No bile duct dilatation. Stable small low-attenuation pancreatic mass. Stable nonobstructing renal calculi. Stable bilateral renal cystic structures. Mild to moderate colonic fecal burden. No
evidence of bowel obstruction. No bowel wall thickening. Stable infrarenal abdominal aortic aneurysm measuring 3.1 cm.
Subjective Data
-
Date of Service:
Date of Service: November 13, 2023
Chief Complaint: Pulmonary Follow Up
Subjective:
patient seen
no new events, remains on 10L
SOB about the same
Objective Data
Data Reviewed
Vital Signs / I&O / Oxygen:
Vital Signs
Temp Pulse Resp BP Pulse Ox
97.8 F 83 20 134/78 97
11/13/23 11:28 11/13/23 11:09 11/13/23 11:09 11/13/23 10:00 11/13/23 11:09
Intake and Output
11/12/23 11/13/23 11/14/23
06:59 06:59 06:59
Intake Total 460 / 460 360 / 360
Output Total 1070 / 1070 400 / 400
Balance -610 / -610 -40 / -40
SaO2 97
Nasal Cannula flow liters per 6
minute
Physical Exam
General: Comfortable, Poor Appetite and Other (NAD, chronically ill appearing)
HEENT: Normocephalic, Anicteric and Moist Mucous Membranes
Cardiovascular: S1-S2 and Regular Rhythm
Respiratory: Crackles and Non-Labored Respirations
GI: Soft, Non Distended and Non Tender
Neurology: Awake, Alert, Oriented, AO x 3 and No Motor Deficits
Skin: Warm, Dry and Good Color
Labs/Micro/Reports
Lab Data
11/12/23 06:48
11/13/23 04:28
Microbiology
11/12/23 22:10 Sputum Respiratory Culture - Final
11/12/23 22:10 Sputum Gram Stain - Final
--- NOTE | 2023-11-13 14:34 | PN.CDI ---
CDI
- -
CDI:
Physician Documentation Request
Admit Date: 11/12/23 09:00
Dear Doctor Milagros,
Please review the following and provide your response in the progress notes.
Clinical Indicators:
- per H&P - no chest pain
- Progress note 'Check troponins'
Laboratory Tests
11/12/23 11/12/23 11/12/23
06:48 10:24 20:20
Troponin I 0.022 0.045 H* D 0.025
Please clarify the following regarding the documented elevated troponin:
Non ischemic myocardial injury
Clinically insignificant abnormal lab value
Other
Use of terms such as suspected, likely, concern for, or probable (associated with a specific diagnosis that is being evaluated, monitored, or treated as if it exists) are acceptable and can be coded in the inpatient setting, when documented at the
time of discharge.
Thank you,
Amna Torres RN
CDI Specialist
Please use your independent medical judgment in providing your response.
--- NOTE | 2023-11-13 15:05 | PTOTSP ---
Addendum entered and electronically signed by ST Cata 11/13/23 15:08:
Patient with mild-moderate dysphonia (low volume, hoarse vocal quality). Consider outpatient consult to an ENT if this persists.
Original Note:
Dysphagia Evaluation
Oral and pharyngeal stages of swallowing suspected to be WFL. No signs of aspiration noted.
Recommend:
1. Regular, Thin Liquids
2. Medications as best tolerated
3. General aspiration precautions
4. No further dysphagia therapy warranted at this time. Please reconsult as appropriate.
--- NOTE | 2023-11-13 16:07 | PTCARENOTE ---
Addendum entered by Maria Fernanda Heller RN 11/13/23 18:16:
POx dropped to 88% when sitting in chair. O2 needed to be increased to 8L n/c; POx 94%.
Original Note:
Assumed care of patient at beginning of this shift from previous RN with 6L n/c in use. POx desats to high 70s/low 80s with exertion; O2 needed to be increased to 15L twice, then able to be weaned to 10L, then 6L midflow. IS initiated by respiratory
therapist. He was on 10L midflow when working with PT and POx dropped to 86-88% only walking from chair to bathroom but was able to recover after a few minutes sitting in the chair. Currently 95% on 6L midflow in chair. See worklist for full
assessment and vital signs.
[2023-11-13] MEDS: LOVENOX 40 MG SC (17:35)
[2023-11-13] MEDS: ZYRTEC 5 MG PO (20:13)
[2023-11-13] MEDS: ZETIA 10 MG PO (20:14)
[2023-11-13] MEDS: FLOMAX 0.400000000000000022 MG PO (20:15)
[2023-11-13] MEDS: CRESTOR 40 MG PO (20:15)
--- NOTE | 2023-11-13 22:52 | PTCARENOTE ---
Received Pt from previous shift. Pt pleasant, forgetful at times. Pt took PM oral meds well with water Pt makes no attempts to exit bed independently. Pt voiding by himself in the bed via the urinal. Pt currently satting 94% on 6L 02. Pts breath
sounds are diminished and course bilaterally. Please see nursing shift assessment for full head to toe. No acute changes at this time.
[2023-11-14] VITALS (14 sets, daily range): BP systolic 127–163; BP diastolic 62–86; PULSE 77; O2SAT 90; BMI 23.1
[2023-11-14 04:50] LABS: Hematocrit 35.6 % (39.0-52.0); Hemoglobin 11.7 g/dL (13.0-18.0); Mean Corp Hgb Conc. 32.9 g/dL (33.0-37.0); Mean Corpuscular Hgb 30.5 pg (27.0-31.0); Mean Platelet Volume 9.2 fL (7.4-10.4); Platelet Count 127 10^3/uL (130-400); Red Blood Cell Count 3.83 10^6/uL (4.70-6.10); White Blood Cell Count 8.7 10^3/uL (4.8-10.8)
[2023-11-14 05:11] LABS: Blood Urea Nitrogen 27 mg/dl (9-20); Calcium 8.9 mg/dl (8.4-10.2); Carbon Dioxide 32 mmol/L (22-30); Chloride 99 mmol/L (98-107); Estimated Creatinine Clearance 90 ml/min; Glucose 127 mg/dl (70-99); Potassium 4.2 mmol/L (3.5-5.1); Sodium 138 mmol/L (135-145); eGFR > 60.00
[2023-11-14] MEDS: DUONEB 3 ML INH ×4 (07:15→20:56)
[2023-11-14] MEDS: FLORINEF 0.200000000000000011 MG PO (08:55)
[2023-11-14] MEDS: MIRALAX 17 GRAMS PO (08:55)
[2023-11-14] MEDS: COLACE 100 MG PO (08:55)
[2023-11-14] MEDS: CELEBREX 100 MG PO (08:55)
[2023-11-14] MEDS: DECADRON 4 MG IV ×3 (08:55→23:20)
[2023-11-14] MEDS: KCL 20 MEQ PO (08:56)
[2023-11-14] MEDS: MAG-TAB SR 84 MG PO (08:56)
[2023-11-14] MEDS: REFRESH EYE DROPS (PF) 1 DROPS BOTH EYES ×2 (08:57→20:30)
[2023-11-14] MEDS: PROTONIX 40 MG PO (08:57)
[2023-11-14] MEDS: ROBITUSSIN 200 MG PO ×4 (08:57→20:29)
[2023-11-14] MEDS: LASIX 20 MG PO (08:57)
[2023-11-14] MEDS: SENOKOT 17.1999999999999993 MG PO (08:57)
[2023-11-14] MEDS: ProAmatine 10 MG PO ×3 (08:59→17:16)
[2023-11-14] MEDS: VITAMIN D3 (cholecalciferol) 50 MCG PO (09:00)
--- NOTE | 2023-11-14 09:08 | W.PN.HOSP.TC ---
Today's Communication/Plan
-
Change Decadron to Levaquin
Continue steroids
Wean oxygen as possible
Assessment / Plan
Assessment / Plan
Cardiovascular system S1-S2 appreciated
Chest bilateral rales
Abdomen soft and nontender
No pedal edema
Nonfocal neuroexam
Still not feeling well.
# Syncope
Patient has a history of orthostatic hypotension
Non-RI troponin elevation
Unclear if he had a mucous plug as he was also in respiratory distress when he came in.
Likely Syncope from Hypoxia from Resp reasons.
No PE
# Acute on chronic hypoxic respiratory failure
Patient is chronically on 2 L of oxygen
Off high flow now- On 10 L now
Continue Acapella
Repeat Sputum Cx
Change antibiotics to Levaquin given no improvement with doxycycline
Decadron 4 mg every 8 hours with a quick taper for COPD exacerbation
Nebulizer treatments
Mucolytic's
Pulmonary consultation appreciated ,wean oxygen as tolerated
Speech evaluation noted. No aspiration
# Hypokalemia-replaced

# Chronic orthostatic hypotension on midodrine and Florinef
# COVID-19 infection 1 month ago
# Stage IV colon cancer--recurrence from previous-completed chemotherapy November 2022
History of right hemicolectomy several years ago
Being followed by [facility]
# Idiopathic pulmonary fibrosis
# Hyperlipidemia-continue statin and Zetia
# Prostate disease-continue Flomax
# History of liver abscess with drainage
# Diabetes by history-hemoglobin A1c 5.5
# Dementia per history
# Infrarenal abdominal aortic aneurysm 3.2 cm
# Ambulatory dysfunction
# Ex-smoker quit 1968
# DVT prophylaxis-Lovenox
# DNR status per discussion with patient and daughter at bedside
D/W Nursing at bed side
Spoke to daughter Farhana and updated.
Anticipated Discharge: > 48 hours
Subjective/Interval History
-
Date of Service: November 14, 2023
Objective Data
-
Labs:
Laboratory Results
11/14/23
04:34
WBC 8.7
Hgb 11.7 L
Hct 35.6 L
Plt Count 127 L
Sodium 138
Potassium 4.2
Chloride 99
Carbon Dioxide 32 H
BUN 27 H
Creatinine 0.6 L
Glucose 127 H
Calcium 8.9
Vital Signs:
Vital Signs
Temp Pulse Resp BP Pulse Ox
98.0 F 78 24 131/66 93
11/14/23 03:28 11/14/23 08:59 11/14/23 07:15 11/14/23 08:59 11/14/23 07:15
I&O
11/13/23 11/14/23 11/15/23
06:59 06:59 06:59
Intake Total 460 / 460 360 / 360
Output Total 1070 / 1070 1500 / 1500 475 / 475
Balance -610 / -610 -1140 / -1140 -475 / -475
[2023-11-14] MEDS: LEVAQUIN 750 MG PO (11:18)
--- NOTE | 2023-11-14 11:25 | CM ---
Patient who resides at [facility] with Dx Syncope, Acute on chronic hypoxic respiratory failure. O2 10L midflow. PT & OT recommend skilled rehab.
Message from Dr Linares; patient will be ready for d/c 11/16. Request for CM to do insurance process over weekend/line up SNF for Friday.
Met with patient who agrees to [facility] when medically ready and insurance approves.
Spoke with Farhana, patient's daughter; provided update on probable timing of d/c on 11/16.
Spoke with wave solder offbearer [facility]; the Admissions Dept is closed today due to the Holiday. Ana María, [facility] will be doing Admissions over the weekend.
Phone call to Ana María, [facility] (ph [phone]); left message inquiring if bed will be available on 11/16. Request she contact CM tomorrow with NPIs for insurance auth.
Plan contact SNF and do insurance auth Sat 11/14 for SNF 11/16.
[2023-11-14] MEDS: VIBRAMYCIN PO (11:42)
--- NOTE | 2023-11-14 12:23 | W.PN.PUL3 ---
Today's Communication / Plan
-
Very slow progress on O2 weaning, remains on 8L
Slow taper on steroids, can likely transition to PO tomorrow if improving
Encouraged continued IS/PT/ambulation
Continue nebs
Assessment
-
Patient is an 82-year-old male, with past history of ILD, chronic hypoxemia on baseline 2L NC following at [facility] presented to the hospital after an episode of syncope. He was walking in his bedroom from the restroom when he passed out. Initial
head CT showing no acute findings. On arrival, he was notably hypoxemic with increased WOB, placed on HFNC. CT showing diffuse ILD, no comparative studies for eval of disease progression. We are consulted for eval.
Acute on chronic respiratory failure now on HFNC
Underlying pulm fibrosis on O2 2L as baseline
Hypokalemia
Chronic hypercarbia, compensated
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
Orthostatic Hypotension
Colon Cancer, s/p R hemicolectomy
DM-II
Senile Dementia
Hypertension
Pulmonary Fibrosis
Not on antifibrotic meds
He follows with Dr Mendoza at [place] and told he has 25% lung function.
Chronic Hypoxemic Respiratory Failure, 2L at baseline, has needed up to 6L
Hepatic Abscess / Sepsis
BPH with LUTS
Infrarenal abdominal aortic aneurysm measuring 3.1 cm.
Ambulatory Dysfunction
Hearing loss
Former Smoker (Quit smoking in 1968)
Plan
Patient was on HFNC, weaned to 8L midflow from 10L, very slow progress
History of baseline use of 2L at home
Reportedly in 60s sustained on arrival
VBG -- confirms chronic mild compensated hypercarbia
Encouraged OOB/IS, PT
Significantly deconditioned
Interstitial disease per imaging noted, difficult to confirm underlying pneumonia/disease progression without prior comparative films
He self reports that his lung function is 25%
Follows with Dr Mendoza at [facility]
Agree with IV steroids
Continue JOAQUÍN alb nebs (return to prn DNs post d/c)
IV steroids, weaned to q8 yesterday, slow taper
If better tomorrow, can transition to PO course
proBNP not significant elevated, but volume status may be difficult to discern in ILD pts
If not clinically improving, may need to consider advanced procedures
Overall prognosis appears poor with severe decrease in lung function
He has advanced directives stating no CPR/intubation, he is currently DNR.
I confirmed current code status today at bedside.
[facility] Reviewed with primary service
Diagnostic Data
CXR 11/09/23- No acute cardiopulmonary process. Persistent severe bilateral interstitial fibrosis similar to previous exams.
CXR 12-20 c/w below, some interim clearing of bilateral patchy infiltrates
CXR 08-04-23, no comparison films, portable, bilateral fibrotic changes, patchy areas of infiltrates of unknown chronicity, mildly elevated R diaphragm. R chest port-A-cath
CT CHEST 11/12/23- No evidence of central pulmonary embolism. Findings with prominent bilateral chronic interstitial/fibrotic changes. Some groundglass opacification bilaterally, nonspecific, possibly representing some acute pulmonary edematous
changes.
CT HEAD 11/12/23- No acute intracranial abnormalities. Findings compatible with diffuse cortical atrophy with nonspecific white matter changes. Chronic bilateral maxillary sinus inflammatory changes.
CT abd/p c/IV 08-04-23
COMPARISON: 07/27/2023.
IMPRESSION: Stable examination. No new or acute abnormality within the abdomen or pelvis. Stable chronic interstitial fibrotic changes. Stable small low-attenuation hepatic structures. Stable Subtle density along the dependent margin could represent
sludge. No gallbladder wall thickening appreciated. No bile duct dilatation. Stable small low-attenuation pancreatic mass. Stable nonobstructing renal calculi. Stable bilateral renal cystic structures. Mild to moderate colonic fecal burden. No
evidence of bowel obstruction. No bowel wall thickening. Stable infrarenal abdominal aortic aneurysm measuring 3.1 cm.
Subjective Data
-
Date of Service:
Date of Service: November 14, 2023
Chief Complaint: Pulmonary Follow Up
Subjective:
slow progress, down to 8L satting 90%
feels his SOB is slightly better, but overall feels weak
Objective Data
Data Reviewed
Vital Signs / I&O / Oxygen:
Vital Signs
Temp Pulse Resp BP Pulse Ox
97.8 F 70 24 131/66 96
11/14/23 11:08 11/14/23 11:24 11/14/23 11:24 11/14/23 08:59 11/14/23 11:24
Intake and Output
11/13/23 11/14/23 11/15/23
06:59 06:59 06:59
Intake Total 460 / 460 360 / 360
Output Total 1070 / 1070 1500 / 1500 475 / 475
Balance -610 / -610 -1140 / -1140 -475 / -475
SaO2 96
Nasal Cannula flow liters per 6
minute
Physical Exam
General: Comfortable, Poor Appetite and Other (NAD, chronically ill appearing)
HEENT: Normocephalic, Anicteric and Moist Mucous Membranes
Cardiovascular: S1-S2 and Regular Rhythm
Respiratory: Crackles and Non-Labored Respirations
GI: Soft, Non Distended and Non Tender
Neurology: Awake, Alert, Oriented, AO x 3 and No Motor Deficits
Skin: Warm, Dry and Good Color
Labs/Micro/Reports
Lab Data
11/14/23 04:34
11/14/23 04:34
Microbiology
11/12/23 10:24 Nose MRSA Screen - Final
No Methicillin Resistant Staphylococcus aureus isolated.
11/12/23 22:10 Sputum Respiratory Culture - Final
11/12/23 22:10 Sputum Gram Stain - Final
--- NOTE | 2023-11-14 13:46 | PTCARENOTE ---
Patient is out of bed to chair, excellent appetite. Patient had a bowel movement today. Patient has dyspnea with any exertion. Pulse ox drops to 80% on oxygen when he stands up/ moves. Pulse ox improves quickly after rest.
[2023-11-14] MEDS: LOVENOX 40 MG SC (17:15)
--- NOTE | 2023-11-14 18:00 | PTCARENOTE ---
Attempted to wean oxygen this shift due to dyspnea with any exertin, pulse ox drops rapidly. Oxygen had to be titrated this shift to maintain puls ox >89%. Currently patient is on 10 liters midflow while eating dinner.
--- NOTE | 2023-11-14 20:00 | PTCARENOTE ---
Received pt sitting comfortably in bed. AAOx3. Pt [place] w/ HAs in place. SR on the monitor. + Murmur. Lungs coarse w/ crackles on 8L 02. Pox 96%. Pt desats easily with movement. Pt w/ bruise/abrasion to L forehead. Using the urinal.
[2023-11-14] MEDS: CRESTOR 40 MG PO (20:30)
[2023-11-14] MEDS: ZETIA 10 MG PO (20:30)
[2023-11-14] MEDS: ZYRTEC 5 MG PO (20:30)
[2023-11-14] MEDS: FLOMAX 0.400000000000000022 MG PO (20:30)
[2023-11-15] VITALS (16 sets, daily range): BP systolic 111–159; BP diastolic 61–89; PULSE 77–110; BMI 22.6
[2023-11-15] MEDS: DUONEB 3 ML INH ×4 (07:20→20:30)
[2023-11-15] MEDS: ROBITUSSIN 200 MG PO ×4 (08:01→21:19)
[2023-11-15] MEDS: MIRALAX 17 GRAMS PO (08:01)
[2023-11-15] MEDS: KCL 20 MEQ PO (08:02)
[2023-11-15] MEDS: VITAMIN D3 (cholecalciferol) 50 MCG PO (08:02)
[2023-11-15] MEDS: REFRESH EYE DROPS (PF) 1 DROPS BOTH EYES ×2 (08:02→19:47)
[2023-11-15] MEDS: LEVAQUIN 750 MG PO (08:02)
[2023-11-15] MEDS: SENOKOT 17.1999999999999993 MG PO (08:02)
[2023-11-15] MEDS: ProAmatine 10 MG PO ×3 (08:02→18:12)
[2023-11-15] MEDS: MAG-TAB SR 84 MG PO (08:02)
[2023-11-15] MEDS: PROTONIX 40 MG PO (08:02)
[2023-11-15] MEDS: COLACE 100 MG PO (08:02)
[2023-11-15] MEDS: FLORINEF 0.200000000000000011 MG PO (08:02)
[2023-11-15] MEDS: DECADRON 4 MG IV ×3 (08:03→23:13)
[2023-11-15] MEDS: CELEBREX 100 MG PO (08:03)
--- NOTE | 2023-11-15 08:51 | PTCARENOTE ---
pt aaox3. states no pain and breathing feels ok when lying still. pt oob to chair MEADOWS o2 sat drop to mid 80's with movement. pt on 6lnc. recovered when sitting. breath sounds course rhonchi. right forehead abrasion noted.
--- NOTE | 2023-11-15 10:11 | W.PN.HOSP.TC ---
Today's Communication/Plan
-
Levaquin
Steroids
Acapella
Encourage OOB
Assessment / Plan
Assessment / Plan
Cardiovascular system S1-S2 appreciated
Chest bilateral rales
Abdomen soft and nontender
No pedal edema
Nonfocal neuroexam
Looks better
# Syncope
Patient has a history of orthostatic hypotension
Non-[place] troponin elevation
Unclear if he had a mucous plug as he was also in respiratory distress when he came in.
Likely Syncope from Hypoxia from Resp reasons.
No PE
# Acute on chronic hypoxic respiratory failure
Improved with Levaquin
Patient is chronically on 2 L of oxygen
Off high flow now- On 6 L now
Continue Acapella
Repeat Sputum Cx
Decadron 4 mg every 8 hours with a quick taper for COPD exacerbation
Nebulizer treatments
Mucolytic's
Pulmonary consultation appreciated ,wean oxygen as tolerated
Speech evaluation noted. No aspiration
# Hypokalemia-replaced

# Chronic orthostatic hypotension on midodrine and Florinef
# COVID-19 infection 1 month ago
# Stage IV colon cancer--recurrence from previous-completed chemotherapy November 2022
History of right hemicolectomy several years ago
Being followed by [place] [facility]
# Idiopathic pulmonary fibrosis
# Hyperlipidemia-continue statin and Zetia
# Prostate disease-continue Flomax
# History of liver abscess with drainage
# Diabetes by history-hemoglobin A1c 5.5
# Dementia per history
# Infrarenal abdominal aortic aneurysm 3.2 cm
# Ambulatory dysfunction
# Ex-smoker quit 1968
# DVT prophylaxis-Lovenox
# DNR status per discussion with patient and daughter at bedside
D/W Nursing at bed side
11/14/23-Spoke to daughter Farhana and updated.
Anticipated Discharge: > 48 hours
Subjective/Interval History
-
Date of Service: November 15, 2023
Objective Data
-
Vital Signs:
Vital Signs
Temp Pulse Resp BP Pulse Ox
97.5 F 99 34 111/61 91
11/15/23 07:35 11/15/23 08:15 11/15/23 08:15 11/15/23 08:15 11/15/23 08:50
I&O
11/14/23 11/15/23 11/16/23
06:59 06:59 06:59
Intake Total 360 / 360 360 / 360
Output Total 1500 / 1500 1895 / 1895 300 / 300
Balance -1140 / -1140 -1535 / -1535 -300 / -300
--- NOTE | 2023-11-15 13:41 | W.PN.PUL3 ---
Today's Communication / Plan
-
Very slow progress on O2 weaning, remains on O2 but now at 5L/min
Slow taper on steroids, continue weaning down as tolerated
Encouraged continued IS/PT/ambulation
Continue nebs
Patient would like to follow-up with us following discharge which we will arrange.
Assessment
-
Patient is an 82-year-old male, with past history of ILD, chronic hypoxemia on baseline 2L NC following at [facility] [place] presented to the hospital after an episode of syncope. He was walking in his bedroom from the restroom when he passed out. Initial
head CT showing no acute findings. On arrival, he was notably hypoxemic with increased WOB, placed on HFNC. CT showing diffuse ILD, no comparative studies for eval of disease progression. We are consulted for eval.
Acute on chronic respiratory failure now on HFNC
Underlying pulm fibrosis on O2 2L as baseline with acute ILD exacerbation
Hypokalemia
Chronic hypercarbia, compensated
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
Orthostatic Hypotension
Colon Cancer, s/p R hemicolectomy
DM-II
Senile Dementia
Hypertension
Pulmonary Fibrosis
Not on antifibrotic meds
He follows with Dr Mendoza at [place] and told he has 25% lung function.
Chronic Hypoxemic Respiratory Failure, 2L at baseline, has needed up to 6L
Hepatic Abscess / Sepsis
BPH with LUTS
Infrarenal abdominal aortic aneurysm measuring 3.1 cm.
Ambulatory Dysfunction
Hearing loss
Former Smoker (Quit smoking in 1968)
Plan
Patient was on HFNC, weaned to 8L midflow from 10L, very slow progress --> currently on 5 L/min nasal cannula
History of baseline use of 2L at home
Reportedly in 60s sustained on arrival
VBG -- confirms chronic mild compensated hypercarbia
Encouraged OOB/IS, PT
Significantly deconditioned
Interstitial disease per imaging noted, difficult to confirm underlying pneumonia/disease progression without prior comparative films
He self reports that his lung function is 25%
Follows with Dr Mendoza at [facility]
Agree with IV steroids��>currently on Decadron 4 mg IVq8hr --> wean as tolerated --> could likely wean down to 2mg q12hr tomorrow
Continue JOAQUÍN alb nebs (return to prn DNs post d/c)
proBNP not significant elevated, but volume status may be difficult to discern in ILD pts
If not clinically improving, may need to consider advanced procedures
Overall prognosis appears poor with severe decrease in lung function
He has advanced directives stating no CPR/intubation, he is currently DNR.
Dr. Chanel confirmed current code status today at bedside.
Return to [facility] follow up after d/c. Reviewed with primary service
Total time spent today was 35 minutes for this encounter. Time includes reviewing laboratory test/imaging results, reviewing pertinent medical records, obtaining and reviewing medical history, performing an appropriate exam, ordering medications,
tests and procedures. Time also includes documentation of this encounter, coordinating patient care and communicating with other healthcare professionals. Total time does not include separately billed tests performed on this date of service.
Diagnostic Data
CXR 11/09/23- No acute cardiopulmonary process. Persistent severe bilateral interstitial fibrosis similar to previous exams.
CXR 12-20 c/w below, some interim clearing of bilateral patchy infiltrates
CXR 08-04-23, no comparison films, portable, bilateral fibrotic changes, patchy areas of infiltrates of unknown chronicity, mildly elevated R diaphragm. R chest port-A-cath
CT CHEST 11/12/23- No evidence of central pulmonary embolism. Findings with prominent bilateral chronic interstitial/fibrotic changes. Some groundglass opacification bilaterally, nonspecific, possibly representing some acute pulmonary edematous
changes.
CT HEAD 11/12/23- No acute intracranial abnormalities. Findings compatible with diffuse cortical atrophy with nonspecific white matter changes. Chronic bilateral maxillary sinus inflammatory changes.
CT abd/p c/IV 08-04-23
COMPARISON: 07/27/2023.
IMPRESSION: Stable examination. No new or acute abnormality within the abdomen or pelvis. Stable chronic interstitial fibrotic changes. Stable small low-attenuation hepatic structures. Stable Subtle density along the dependent margin could represent
sludge. No gallbladder wall thickening appreciated. No bile duct dilatation. Stable small low-attenuation pancreatic mass. Stable nonobstructing renal calculi. Stable bilateral renal cystic structures. Mild to moderate colonic fecal burden. No
evidence of bowel obstruction. No bowel wall thickening. Stable infrarenal abdominal aortic aneurysm measuring 3.1 cm.
Subjective Data
-
Date of Service:
Date of Service: November 15, 2023
Chief Complaint: Pulmonary Follow Up
Subjective:
Patient seen today. He is on 5 L/min nasal cannula. Daughter at bedside as well as daughter's . I answered all the questions. Patient still endorses phlegm production. He feels much better. Eager to go home. Denies headache, chest
pain, worsening shortness of breath, fevers or chills.
Review of Systems
General: Other (Negative unless mentioned above)
Objective Data
Data Reviewed
Vital Signs / I&O / Oxygen:
Vital Signs
Temp Pulse Resp BP Pulse Ox
97.8 F 86 32 127/84 91
11/15/23 11:41 11/15/23 12:00 11/15/23 12:00 11/15/23 13:00 11/15/23 12:00
Intake and Output
11/14/23 11/15/23 11/16/23
06:59 06:59 06:59
Intake Total 360 / 360 360 / 360
Output Total 1500 / 1500 1895 / 1895 300 / 300
Balance -1140 / -1140 -1535 / -1535 -300 / -300
SaO2 91
Nasal Cannula flow liters per 6
minute
Physical Exam
General: Comfortable, Poor Appetite and Other (NAD, chronically ill appearing)
HEENT: Normocephalic, Anicteric and Moist Mucous Membranes
Cardiovascular: S1-S2 and Peripheral Edema (Negative)
Respiratory: Wheeze (negative), Crackles (Bilaterally), Rhonchi (negative) and Non-Labored Respirations
GI: Soft, Non Distended and Non Tender
Neurology: AO x 3 and No Motor Deficits
Skin: Warm, Dry and Good Color
Labs/Micro/Reports
Lab Data
11/14/23 04:34
11/14/23 04:34
Microbiology
11/12/23 10:24 Nose MRSA Screen - Final
No Methicillin Resistant Staphylococcus aureus isolated.
11/12/23 22:10 Sputum Respiratory Culture - Final
11/12/23 22:10 Sputum Gram Stain - Final
--- NOTE | 2023-11-15 15:25 | CM ---
Chart reviewed and caser will need updated PT/OT notes in order to obtain Auth. Patient has been accepted at [facility], however patient is requiring 15 liters of oxygen with ambulating during physical therapy, caser will update Kaylie
in admissions at [facility] on patient's oxygen needs.
[facility]
Dr. Marques Lambert
[2023-11-15] MEDS: LOVENOX 40 MG SC (18:12)
[2023-11-15] MEDS: ZETIA 10 MG PO (21:19)
[2023-11-15] MEDS: FLOMAX 0.400000000000000022 MG PO (21:19)
[2023-11-15] MEDS: CRESTOR 40 MG PO (21:19)
[2023-11-15] MEDS: ZYRTEC 5 MG PO (21:20)
[2023-11-16] VITALS (13 sets, daily range): BP systolic 103–160; BP diastolic 66–91; BMI 22.4
[2023-11-16 04:44] LABS: Hematocrit 37.6 % (39.0-52.0); Hemoglobin 12.5 g/dL (13.0-18.0); Mean Corp Hgb Conc. 33.2 g/dL (33.0-37.0); Mean Corpuscular Hgb 30.3 pg (27.0-31.0); Platelet Count 149 10^3/uL (130-400); Red Blood Cell Count 4.13 10^6/uL (4.70-6.10); Red Cell Dist. Width 13.8 % (11.5-14.5); White Blood Cell Count 7.2 10^3/uL (4.8-10.8)
[2023-11-16 05:36] LABS: Blood Urea Nitrogen 30 mg/dl (9-20); Calcium 8.9 mg/dl (8.4-10.2); Carbon Dioxide 30 mmol/L (22-30); Chloride 98 mmol/L (98-107); Estimated Creatinine Clearance 88 ml/min; Glucose 128 mg/dl (70-99); Potassium 4.1 mmol/L (3.5-5.1); Sodium 136 mmol/L (135-145); eGFR > 60.00
[2023-11-16] MEDS: DUONEB 3 ML INH ×4 (07:25→19:50)
[2023-11-16] MEDS: REFRESH EYE DROPS (PF) 1 DROPS BOTH EYES ×2 (09:03→19:33)
[2023-11-16] MEDS: ProAmatine 10 MG PO ×3 (09:03→17:20)
[2023-11-16] MEDS: LEVAQUIN 750 MG PO (09:03)
[2023-11-16] MEDS: COLACE 100 MG PO (09:04)
[2023-11-16] MEDS: FLORINEF 0.200000000000000011 MG PO (09:04)
[2023-11-16] MEDS: DECADRON 4 MG IV ×2 (09:04→17:20)
[2023-11-16] MEDS: SENOKOT 17.1999999999999993 MG PO (09:04)
[2023-11-16] MEDS: MIRALAX 17 GRAMS PO (09:04)
[2023-11-16] MEDS: KCL 20 MEQ PO (09:04)
[2023-11-16] MEDS: CELEBREX 100 MG PO (09:04)
[2023-11-16] MEDS: MAG-TAB SR 84 MG PO (09:04)
[2023-11-16] MEDS: VITAMIN D3 (cholecalciferol) 50 MCG PO (09:04)
[2023-11-16] MEDS: ROBITUSSIN 200 MG PO ×4 (09:05→19:33)
[2023-11-16] MEDS: PROTONIX 40 MG PO (09:12)
--- NOTE | 2023-11-16 09:26 | PTCARENOTE ---
pt aaox3. states no pain. pt dyspneic with moist productive cough. o2 sat into the mid 70's. increased o2 to 10l. pt sat 92% at rest. when moving sat dips to 85%. breath sounds diminished course with ex wheezing. cxray taken as ordered.
--- NOTE | 2023-11-16 09:31 | W.PN.PUL3 ---
Today's Communication / Plan
-
Very slow progress on O2 weaning, remains on O2 and now back on midflow
Considering yesterday he is oxygen requirements improved and today they are worse again with CXR today showing worsening opacification in the left midlung, I will check a procal tomorrow and he may need a slower tapering of steroids; I will also
check a CRP. If CRP high & procalcitonin low, perhaps we need to go up higher on the steroids. If vice versa, then continue weaning steroids and we may need to start a broader regimen of Abx
Slow taper on steroids, continue weaning down as tolerated
Encouraged continued IS/PT/ambulation
Continue nebs
Patient would like to follow-up with us s/p discharge which we will arrange -will need outpatient medical records from [facility].
Assessment
-
Patient is an 82-year-old male, with past history of ILD, chronic hypoxemia on baseline 2L NC following at [facility], HLD presented to the hospital after an episode of syncope. He was walking in his bedroom from the restroom when he passed out. Initial
head CT showing no acute findings. On arrival, he was notably hypoxemic with increased WOB, placed on HFNC. CT showing diffuse ILD, no comparative studies for eval of disease progression. We are consulted for eval.
Acute on chronic respiratory failure on midflow nasal cannula
Underlying pulm fibrosis on O2 2L as baseline with acute ILD exacerbation
Hypokalemia
Chronic hypercarbia, compensated 7.41/50
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
Orthostatic Hypotension
Colon Cancer, s/p R hemicolectomy
DM-II
Senile Dementia
Hypertension
Pulmonary Fibrosis
Not on antifibrotic meds
He follows with Dr Mendoza at [place] and told he has 25% lung function.
Chronic Hypoxemic Respiratory Failure, 2L at baseline, has needed up to 6L
Hepatic Abscess / Sepsis
BPH with LUTS
Infrarenal abdominal aortic aneurysm measuring 3.1 cm.
Ambulatory Dysfunction
Hearing loss
Former Smoker (Quit smoking in 1968)
Plan
Patient was on HFNC, weaned to 8L midflow from 10L, very slow progress --> yesterday was on 5 L/min nasal cannula, and now back to 10L/min midflow
History of baseline use of 2L at home
Reportedly in 60s sustained on arrival
VBG --7 confirms chronic mild compensated hypercarbia
Encouraged OOB/IS, PT
Significantly deconditioned
Interstitial disease per imaging noted, difficult to confirm underlying pneumonia/disease progression without prior comparative films
He self reports that his lung function is 25%
Follows with Dr Mendoza at [facility] --> patient no longer wants to follow with [facility] and wishes to transition to us.
Agree with IV steroids��>currently on Decadron 4 mg IVq8hr --> wean as tolerated --> will wean down to 2mg q8hr today
Continue JOAQUÍN alb nebs (return to prn DNs post d/c)
proBNP not significant elevated, but volume status may be difficult to discern in ILD pts
If not clinically improving, may need to consider advanced procedures
Overall prognosis appears poor with severe decrease in lung function
He has advanced directives stating no CPR/intubation, he is currently DNR.
Dr. Chanel confirmed current code status today at bedside.
Patient wishes to transition his pulmonary care to us at [facility]. Outpatient medical records will need to be obtained from [facility].
Total time spent today was 35 minutes for this encounter. Time includes reviewing laboratory test/imaging results, reviewing pertinent medical records, obtaining and reviewing medical history, performing an appropriate exam, ordering medications,
tests and procedures. Time also includes documentation of this encounter, coordinating patient care and communicating with other healthcare professionals. Total time does not include separately billed tests performed on this date of service.
Diagnostic Data
CXR 11-16-2023-Persistent generalized bilateral interstitial prominence, and mild hazy opacity, raising the possibility of an airspace/acinar component. Relatively stable compared to prior examination. No pneumothorax. No radiographically
demonstrable pleural effusion. The cardiomediastinal margins are stable.
CXR 11/09/23- No acute cardiopulmonary process. Persistent severe bilateral interstitial fibrosis similar to previous exams.
CXR 12-20 c/w below, some interim clearing of bilateral patchy infiltrates
CXR 08-04-23, no comparison films, portable, bilateral fibrotic changes, patchy areas of infiltrates of unknown chronicity, mildly elevated R diaphragm. R chest port-A-cath
CT CHEST 11/12/23- No evidence of central pulmonary embolism. Findings with prominent bilateral chronic interstitial/fibrotic changes. Some groundglass opacification bilaterally, nonspecific, possibly representing some acute pulmonary edematous
changes.
CT HEAD 11/12/23- No acute intracranial abnormalities. Findings compatible with diffuse cortical atrophy with nonspecific white matter changes. Chronic bilateral maxillary sinus inflammatory changes.
CT abd/p c/IV 08-04-23
COMPARISON: 07/27/2023.
IMPRESSION: Stable examination. No new or acute abnormality within the abdomen or pelvis. Stable chronic interstitial fibrotic changes. Stable small low-attenuation hepatic structures. Stable Subtle density along the dependent margin could represent
sludge. No gallbladder wall thickening appreciated. No bile duct dilatation. Stable small low-attenuation pancreatic mass. Stable nonobstructing renal calculi. Stable bilateral renal cystic structures. Mild to moderate colonic fecal burden. No
evidence of bowel obstruction. No bowel wall thickening. Stable infrarenal abdominal aortic aneurysm measuring 3.1 cm.
Subjective Data
-
Date of Service:
Date of Service: November 16, 2023
Chief Complaint: Pulmonary Follow Up
Subjective:
Patient seen today at bedside. He is on 10 L/min nasal cannula saturating 97%. Still feels very weak. No shortness of breath at rest. He denies headache, chest pain, abdominal pain, fevers or chills. CXR done today shows slight worsening
opacification in the left midlung.
Review of Systems
General: Other (Negative unless mentioned above)
Objective Data
Data Reviewed
Vital Signs / I&O / Oxygen:
Vital Signs
Temp Pulse Resp BP Pulse Ox
98.2 F 80 21 137/91 85
11/16/23 07:58 11/16/23 08:00 11/16/23 08:00 11/16/23 09:03 11/16/23 08:00
Intake and Output
11/15/23 11/16/23 11/17/23
06:59 06:59 06:59
Intake Total 360 / 360
Output Total 1895 / 1895 800 / 800 200 / 200
Balance -1535 / -1535 -800 / -800 -200 / -200
SaO2 85
Nasal Cannula flow liters per 10
minute
Physical Exam
General: Comfortable, Poor Appetite and Other (NAD, chronically ill appearing)
HEENT: Normocephalic, Anicteric and Moist Mucous Membranes
Cardiovascular: S1-S2 and Peripheral Edema (Negative)
Respiratory: Wheeze (negative), Crackles (Bilaterally), Rhonchi (negative) and Non-Labored Respirations
GI: Soft, Non Distended and Non Tender
Neurology: AO x 3 and No Motor Deficits
Skin: Warm, Dry, Good Color and Other (Clubbing seen)
Labs/Micro/Reports
Lab Data
11/16/23 04:31
11/16/23 04:31
Microbiology
11/12/23 10:24 Nose MRSA Screen - Final
No Methicillin Resistant Staphylococcus aureus isolated.
11/12/23 22:10 Sputum Respiratory Culture - Final
11/12/23 22:10 Sputum Gram Stain - Final
--- NOTE | 2023-11-16 11:57 | W.PN.HOSP.TC ---
Today's Communication/Plan
-
Continue to wean oxygen for saturations above 90
Continue Levaquin
Acapella
Assessment / Plan
Assessment / Plan
Cardiovascular system S1-S2 appreciated
Chest bilateral rales
Abdomen soft and nontender
No pedal edema
Nonfocal neuroexam
# Syncope
Patient has a history of orthostatic hypotension
Non-[place] troponin elevation
Unclear if he had a mucous plug as he was also in respiratory distress when he came in.
Likely Syncope from Hypoxia from Resp reasons.
No PE
# Acute on chronic hypoxic respiratory failure
Was doing well but had a coughing spasm after which he required more oxygen.
Patient is chronically on 2 L of oxygen
Off high flow now- On 6 L now
Continue Acapella
Repeat Sputum Cx
Decadron 4 mg every 8 hours with a quick taper for COPD exacerbation
Nebulizer treatments
Mucolytic's
Pulmonary consultation appreciated ,wean oxygen as tolerated
Speech evaluation noted. No aspiration
# Hypokalemia-replaced

# Chronic orthostatic hypotension on midodrine and Florinef
# COVID-19 infection 1 month ago
# Stage IV colon cancer--recurrence from previous-completed chemotherapy November 2022
History of right hemicolectomy several years ago
Being followed by [place] [facility]
# Idiopathic pulmonary fibrosis
# Hyperlipidemia-continue statin and Zetia
# Prostate disease-continue Flomax
# History of liver abscess with drainage
# Diabetes by history-hemoglobin A1c 5.5
# Dementia per history
# Infrarenal abdominal aortic aneurysm 3.2 cm
# Ambulatory dysfunction
# Ex-smoker quit 1968
# DVT prophylaxis-Lovenox
# DNR status per discussion with patient and daughter at bedside
D/W Nursing at bed side
Spoke to patient's daughter Farhana and updated today
Anticipated Discharge: > 48 hours
Subjective/Interval History
-
Date of Service: November 16, 2023
Objective Data
-
Labs:
Laboratory Results
11/16/23
04:31
WBC 7.2
Hgb 12.5 L
Hct 37.6 L
Plt Count 149
Sodium 136
Potassium 4.1
Chloride 98
Carbon Dioxide 30
BUN 30 H
Creatinine 0.6 L
Glucose 128 H
Calcium 8.9
Vital Signs:
Vital Signs
Temp Pulse Resp BP Pulse Ox
97.3 F 90 15 137/91 96
11/16/23 11:09 11/16/23 11:22 11/16/23 11:22 11/16/23 09:03 11/16/23 11:22
I&O
11/15/23 11/16/23 11/17/23
06:59 06:59 06:59
Intake Total 360 / 360
Output Total 1895 / 1895 800 / 800 200 / 200
Balance -1535 / -1535 -800 / -800 -200 / -200
[2023-11-16] MEDS: LOVENOX 40 MG SC (17:19)
[2023-11-16] MEDS: FLOMAX 0.400000000000000022 MG PO (22:57)
[2023-11-16] MEDS: CRESTOR 40 MG PO (22:57)
[2023-11-16] MEDS: ZYRTEC 5 MG PO (22:57)
[2023-11-16] MEDS: ZETIA 10 MG PO (22:57)
[2023-11-16] MEDS: DECADRON 2 MG IV (23:46)
[2023-11-17] VITALS (14 sets, daily range): BP systolic 114–157; BP diastolic 71–85; PULSE 78; O2SAT 96
[2023-11-17 05:53] LABS: Blood Urea Nitrogen 32 mg/dl (9-20); Calcium 8.8 mg/dl (8.4-10.2); Carbon Dioxide 34 mmol/L (22-30); Chloride 97 mmol/L (98-107); Estimated Creatinine Clearance 88 ml/min; Glucose 120 mg/dl (70-99); Potassium 3.9 mmol/L (3.5-5.1); Sodium 137 mmol/L (135-145); eGFR > 60.00
[2023-11-17 05:55] LABS: C-Reactive Protein < 5.00 mg/L (0.0-10.00)
[2023-11-17 05:58] LABS: Procalcitonin < 0.05 ng/ml (0.0-0.25)
[2023-11-17] MEDS: DUONEB 3 ML INH ×4 (07:54→18:09)
[2023-11-17] MEDS: FLORINEF 0.200000000000000011 MG PO (08:29)
[2023-11-17] MEDS: KCL 20 MEQ PO (08:29)
[2023-11-17] MEDS: ProAmatine 10 MG PO ×3 (08:29→17:52)
[2023-11-17] MEDS: CELEBREX 100 MG PO (08:29)
[2023-11-17] MEDS: COLACE 100 MG PO (08:30)
[2023-11-17] MEDS: REFRESH EYE DROPS (PF) 1 DROPS BOTH EYES ×2 (08:30→19:45)
[2023-11-17] MEDS: MAG-TAB SR 84 MG PO (08:32)
[2023-11-17] MEDS: LEVAQUIN 750 MG PO (08:32)
[2023-11-17] MEDS: PROTONIX 40 MG PO (08:32)
[2023-11-17] MEDS: VITAMIN D3 (cholecalciferol) 50 MCG PO (08:33)
[2023-11-17] MEDS: MIRALAX 17 GRAMS PO (08:33)
[2023-11-17] MEDS: SENOKOT 17.1999999999999993 MG PO (08:33)
[2023-11-17] MEDS: ROBITUSSIN 200 MG PO ×4 (08:34→19:45)
[2023-11-17] MEDS: DECADRON 2 MG IV ×2 (08:34→16:08)
--- NOTE | 2023-11-17 09:10 | W.PN.PUL.V3 ---
Today's Communication / Plan
-
Wean oxygen
Increase activity
Continue antibiotics
No change in steroids
Assessment
-
Patient is an 82-year-old male, with past history of ILD, chronic hypoxemia on baseline 2L NC following at [facility], HLD presented to the hospital after an episode of syncope. He was walking in his bedroom from the restroom when he passed out. Initial
head CT showing no acute findings. On arrival, he was notably hypoxemic with increased WOB, placed on HFNC. CT showing diffuse ILD, no comparative studies for eval of disease progression. We are consulted for eval.
Acute on chronic respiratory failure on midflow nasal cannula
Underlying pulm fibrosis on O2 2L as baseline with acute ILD exacerbation
Hypokalemia
Chronic hypercarbia, compensated 7.41/50
DNR
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
Orthostatic Hypotension
Colon Cancer, s/p R hemicolectomy
DM-II
Senile Dementia
Hypertension
Pulmonary Fibrosis
Not on antifibrotic meds
He follows with Dr Mendoza at [place] and told he has 25% lung function.
Chronic Hypoxemic Respiratory Failure, 2L at baseline, has needed up to 6L
Hepatic Abscess / Sepsis
BPH with LUTS
Infrarenal abdominal aortic aneurysm measuring 3.1 cm.
Ambulatory Dysfunction
Hearing loss
Former Smoker (Quit smoking in 1968)
Plan
Respiratory status tenuous but very slowly improving
Continue supplemental oxygen attempt to wean-currently on mid flow-90-93% saturation at rest
Aspiration precautions-speech therapy following
Continue nebulizers
Decadron 2 mg IV every 8 hours-no change today
Mucolytic's continue
Could try Vest therapy to help mobilize secretions
Cultures reviewed
Repeat sputum culture pending
Empiric antibiotics continue
DVT prophylaxis
GI prophylaxis-on pantoprazole
Patient usually follows with Dr Mendoza at [facility] --> patient no longer wants to follow with [facility] and wishes to transition to us.
Patient wishes to transition his pulmonary care to us at [facility]. Outpatient medical records will need to be obtained from [facility].
Diagnostic Data
CXR 11-16-2023-Persistent generalized bilateral interstitial prominence, and mild hazy opacity, raising the possibility of an airspace/acinar component. Relatively stable compared to prior examination. No pneumothorax. No radiographically
demonstrable pleural effusion. The cardiomediastinal margins are stable.
CXR 11/09/23- No acute cardiopulmonary process. Persistent severe bilateral interstitial fibrosis similar to previous exams.
CXR 12-20 c/w below, some interim clearing of bilateral patchy infiltrates
CXR 08-04-23, no comparison films, portable, bilateral fibrotic changes, patchy areas of infiltrates of unknown chronicity, mildly elevated R diaphragm. R chest port-A-cath
CT CHEST 11/12/23- No evidence of central pulmonary embolism. Findings with prominent bilateral chronic interstitial/fibrotic changes. Some groundglass opacification bilaterally, nonspecific, possibly representing some acute pulmonary edematous
changes.
CT HEAD 11/12/23- No acute intracranial abnormalities. Findings compatible with diffuse cortical atrophy with nonspecific white matter changes. Chronic bilateral maxillary sinus inflammatory changes.
CT abd/p c/IV 08-04-23
COMPARISON: 07/27/2023.
IMPRESSION: Stable examination. No new or acute abnormality within the abdomen or pelvis. Stable chronic interstitial fibrotic changes. Stable small low-attenuation hepatic structures. Stable Subtle density along the dependent margin could represent
sludge. No gallbladder wall thickening appreciated. No bile duct dilatation. Stable small low-attenuation pancreatic mass. Stable nonobstructing renal calculi. Stable bilateral renal cystic structures. Mild to moderate colonic fecal burden. No
evidence of bowel obstruction. No bowel wall thickening. Stable infrarenal abdominal aortic aneurysm measuring 3.1 cm.
Subjective Data
-
Date of Service:
Date of Service: November 17, 2023
Chief Complaint: Pulmonary Follow Up and Dyspnea Follow Up
Subjective:
Still significant shortness of breath with minimal exertion, saturations at 90% at rest on 8 L mid flow, no complaints of chest congestion, productive cough, chest pain or abdominal pain
Review of Systems
General: Other (Per HPI)
Objective Data
Data Reviewed
Vital Signs / I&O:
Vital Signs
Temp Pulse Resp BP Pulse Ox
97.8 F 69 26 157/85 94
11/17/23 07:30 11/17/23 08:00 11/17/23 08:00 11/17/23 08:00 11/17/23 08:00
Intake and Output
11/16/23 11/17/23 11/18/23
06:59 06:59 06:59
Intake Total 500 / 500 240 / 240
Output Total 800 / 800 1000 / 1000 400 / 400
Balance -800 / -800 -500 / -500 -160 / -160
SaO2: 94
Nasal Cannula flow liters per minute: 10
Physical Exam
General: Respiratory Distress (n), Comfortable, Poor Appetite and Other (NAD, chronically ill appearing)
HEENT: Normocephalic, Anicteric and Moist Mucous Membranes
Cardiovascular: Regular Rhythm and Peripheral Edema (Negative)
Respiratory: Clear (Prolonged expiratory time and diminished breath sounds f), Wheeze (Forced expiratory), Crackles (Bilaterally), Rhonchi (negative), Non-Labored Respirations, Accessory Resp Muscle Use (n) and Stridor (n)
GI: Soft, Non Distended and Non Tender
Neurology: Awake, Alert and No Motor Deficits
Skin: Warm, Dry, Good Color, Cyanosis (n), Jaundice (n) and Other (Clubbing seen)
Labs/Micro/Reports
Lab Data
11/16/23 04:31
11/17/23 05:19
--- NOTE | 2023-11-17 09:50 | W.PN.HOSP.TC ---
Today's Communication/Plan
-
Patient still requiring high amounts of oxygen
Wean as tolerated
Continue Acapella, nebulizer treatments
? vest
Assessment / Plan
Assessment / Plan
Cardiovascular system S1-S2 appreciated
Chest bilateral rales
Abdomen soft and nontender
No pedal edema
Nonfocal neuroexam
# Syncope
Patient has a history of orthostatic hypotension
Non-[place] troponin elevation
Unclear if he had a mucous plug as he was also in respiratory distress when he came in.
Likely Syncope from Hypoxia from Resp reasons.
No PE
# Acute on chronic hypoxic respiratory failure
Was doing well but had a coughing spasm after which he required more oxygen.
Patient is chronically on 2 L of oxygen
Off high flow now- On 10 L now
Oxygen requirements has been varying. Try to wean as possible.
Continue Acapella
Repeat Sputum Cx
Decadron 4 mg every 8 hours with a quick taper for COPD exacerbation
Nebulizer treatments
Mucolytic's
Pulmonary consultation appreciated
Speech evaluation noted. No aspiration
# Hypokalemia-replaced

# Chronic orthostatic hypotension on midodrine and Florinef
# COVID-19 infection 1 month ago
# Stage IV colon cancer--recurrence from previous-completed chemotherapy November 2022
History of right hemicolectomy several years ago
Being followed by [place] [facility]
# Idiopathic pulmonary fibrosis
# Hyperlipidemia-continue statin and Zetia
# Prostate disease-continue Flomax
# History of liver abscess with drainage
# Diabetes by history-hemoglobin A1c 5.5
# Dementia per history
# Infrarenal abdominal aortic aneurysm 3.2 cm
# Ambulatory dysfunction
# Ex-smoker quit 1968
# DVT prophylaxis-Lovenox
# DNR status per discussion with patient and daughter at bedside
D/W Nursing at bed side
Spoke to patient's daughter Farhana and updated 11/16/2023
Anticipated Discharge: 24 - 48 hours
Subjective/Interval History
-
Date of Service: November 17, 2023
Objective Data
-
Labs:
Laboratory Results
11/17/23
05:19
Sodium 137
Potassium 3.9
Chloride 97 L
Carbon Dioxide 34 H
BUN 32 H
Creatinine 0.6 L
Glucose 120 H
Calcium 8.8
Vital Signs:
Vital Signs
Temp Pulse Resp BP Pulse Ox
97.8 F 69 26 157/85 94
11/17/23 07:30 11/17/23 08:00 11/17/23 08:00 11/17/23 08:00 11/17/23 09:10
I&O
11/16/23 11/17/23 11/18/23
06:59 06:59 06:59
Intake Total 500 / 500 240 / 240
Output Total 800 / 800 1000 / 1000 400 / 400
Balance -800 / -800 -500 / -500 -160 / -160
--- NOTE | 2023-11-17 10:34 | PTCARENOTE ---
Pt refusing Lasix until I tell the DR that he fainted from Flomax a couple months ago. When i tried to explain anythong to pt he bacame very upset . DR Bruce TT
--- NOTE | 2023-11-17 17:11 | CM ---
Patient who resides at [facility] with Dx Syncope, Acute on chronic hypoxic respiratory failure. O2 10L midflow. Receiving IV Decadron. PT & OT recommend skilled rehab.
Spoke with Farhana, patient's daughter; she was updated by MD yesterday and is aware of patient's respiratory status/O2 needs. Conveyed that CM will contact SNF and obtain insurance auth once patient is closer to discharge.
CM will need to clarify with [facility] what O2 liter flow they can accomodate, in order to accept patient, and if they have a high flow concentrator up to 10L.
Plan [facility] SNF when medically ready and insurance approves.
[2023-11-17] MEDS: LOVENOX 40 MG SC (17:51)
[2023-11-17] MEDS: FLOMAX 0.400000000000000022 MG PO (19:45)
[2023-11-17] MEDS: ZETIA 10 MG PO (19:45)
[2023-11-17] MEDS: ZYRTEC 5 MG PO (19:45)
[2023-11-17] MEDS: CRESTOR 40 MG PO (19:45)
--- NOTE | 2023-11-17 20:05 | PTCARENOTE ---
Pt ambulated from chair to bed with desat to 79% on 10L. Pt settled into bed and responded to coached breathing at 96%. Education provided to focus on breathing with ambulation and refrain from talking or holding his breath. Pt resting comfortably
in bed with call davis within reach.
[2023-11-18] VITALS (12 sets, daily range): BP systolic 113–146; BP diastolic 61–121; BMI 22.2
[2023-11-18] MEDS: DECADRON 2 MG IV ×2 (00:16→09:08)
[2023-11-18 06:06] LABS: Blood Urea Nitrogen 36 mg/dl (9-20); Calcium 8.5 mg/dl (8.4-10.2); Carbon Dioxide 33 mmol/L (22-30); Chloride 103 mmol/L (98-107); Estimated Creatinine Clearance 65 ml/min; Glucose 119 mg/dl (70-99); Potassium 4.1 mmol/L (3.5-5.1); Sodium 138 mmol/L (135-145); eGFR > 60.00
[2023-11-18] MEDS: DUONEB 3 ML INH ×4 (07:53→19:25)
[2023-11-18] MEDS: ROBITUSSIN 200 MG PO ×4 (09:06→20:33)
[2023-11-18] MEDS: ProAmatine 10 MG PO ×3 (09:06→17:01)
[2023-11-18] MEDS: MIRALAX 17 GRAMS PO (09:06)
[2023-11-18] MEDS: CELEBREX 100 MG PO (09:06)
[2023-11-18] MEDS: REFRESH EYE DROPS (PF) 1 DROPS BOTH EYES ×2 (09:06→20:33)
[2023-11-18] MEDS: FLORINEF 0.200000000000000011 MG PO (09:06)
[2023-11-18] MEDS: PROTONIX 40 MG PO (09:07)
[2023-11-18] MEDS: KCL 20 MEQ PO (09:07)
[2023-11-18] MEDS: VITAMIN D3 (cholecalciferol) 50 MCG PO (09:07)
[2023-11-18] MEDS: MAG-TAB SR 84 MG PO (09:07)
[2023-11-18] MEDS: LEVAQUIN 750 MG PO (09:08)
[2023-11-18] MEDS: SENOKOT 17.1999999999999993 MG PO (09:08)
[2023-11-18] MEDS: COLACE 100 MG PO (09:08)
--- NOTE | 2023-11-18 09:26 | W.PN.PUL.V3 ---
Today's Communication / Plan
-
Increase Decadron
Mucus clearing devices
Antibiotics
Attempt to wean oxygen
Assessment
-
Patient is an 82-year-old male, with past history of ILD, chronic hypoxemia on baseline 2L NC following at [facility], HLD presented to the hospital after an episode of syncope. He was walking in his bedroom from the restroom when he passed out. Initial
head CT showing no acute findings. On arrival, he was notably hypoxemic with increased WOB, placed on HFNC. CT showing diffuse ILD, no comparative studies for eval of disease progression. We are consulted for eval.
Acute on chronic respiratory failure on midflow nasal cannula
Underlying pulm fibrosis on O2 2L as baseline with acute ILD exacerbation
Hypokalemia
Chronic hypercarbia, compensated 7.41/50
DNR
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
Orthostatic Hypotension
Colon Cancer, s/p R hemicolectomy
DM-II
Senile Dementia
Hypertension
Pulmonary Fibrosis
Not on antifibrotic meds
He follows with Dr Mendoza at [place] and told he has 25% lung function.
Chronic Hypoxemic Respiratory Failure, 2L at baseline, has needed up to 6L
Hepatic Abscess / Sepsis
BPH with LUTS
Infrarenal abdominal aortic aneurysm measuring 3.1 cm.
Ambulatory Dysfunction
Hearing loss
Former Smoker (Quit smoking in 1968)
Plan
Respiratory status still quite tenuous with high FiO2 requirements, chest congestions, dyspnea on exertion and difficulties mobilizing secretions
Still on high FiO2-attempt to wean
Aspiration precautions-speech therapy following
Nebulizers continue
Decadron 2 mg IV every 8 hours-will increase to 4 mg every 8 hours
Mucolytic's continue
Mucus mobilizing devices will be attempted
Cultures reviewed
Repeat sputum culture-4 specimen
Empiric antibiotics continue
DVT prophylaxis
GI prophylaxis-on pantoprazole
Long-term prognosis unfortunately quite poor-patient understands he has end-stage lung disease-not sure how much improvement we can accomplish
Patient usually follows with Dr Mendoza at [facility] --> patient no longer wants to follow with [facility] and wishes to transition to us.
Patient wishes to transition his pulmonary care to us at [facility]. Outpatient medical records will need to be obtained from [facility].
Diagnostic Data
CXR 11-16-2023-Persistent generalized bilateral interstitial prominence, and mild hazy opacity, raising the possibility of an airspace/acinar component. Relatively stable compared to prior examination. No pneumothorax. No radiographically
demonstrable pleural effusion. The cardiomediastinal margins are stable.
CXR 11/09/23- No acute cardiopulmonary process. Persistent severe bilateral interstitial fibrosis similar to previous exams.
CXR 12-20 c/w below, some interim clearing of bilateral patchy infiltrates
CXR 08-04-23, no comparison films, portable, bilateral fibrotic changes, patchy areas of infiltrates of unknown chronicity, mildly elevated R diaphragm. R chest port-A-cath
CT CHEST 11/12/23- No evidence of central pulmonary embolism. Findings with prominent bilateral chronic interstitial/fibrotic changes. Some groundglass opacification bilaterally, nonspecific, possibly representing some acute pulmonary edematous
changes.
CT HEAD 11/12/23- No acute intracranial abnormalities. Findings compatible with diffuse cortical atrophy with nonspecific white matter changes. Chronic bilateral maxillary sinus inflammatory changes.
CT abd/p c/IV 08-04-23
COMPARISON: 07/27/2023.
IMPRESSION: Stable examination. No new or acute abnormality within the abdomen or pelvis. Stable chronic interstitial fibrotic changes. Stable small low-attenuation hepatic structures. Stable Subtle density along the dependent margin could represent
sludge. No gallbladder wall thickening appreciated. No bile duct dilatation. Stable small low-attenuation pancreatic mass. Stable nonobstructing renal calculi. Stable bilateral renal cystic structures. Mild to moderate colonic fecal burden. No
evidence of bowel obstruction. No bowel wall thickening. Stable infrarenal abdominal aortic aneurysm measuring 3.1 cm.
Subjective Data
-
Date of Service:
Date of Service: November 18, 2023
Chief Complaint: Pulmonary Follow Up and Dyspnea Follow Up
Subjective:
Still has significant shortness of breath with minimal exertion, always feels poorly in the morning, no chest pain, difficulties mobilizing secretions, some chest congestion
Review of Systems
General: Other (Per HPI)
Objective Data
Data Reviewed
Vital Signs / I&O:
Vital Signs
Temp Pulse Resp BP Pulse Ox
97.7 F 87 20 113/71 96
11/18/23 07:03 11/18/23 07:58 11/18/23 07:58 11/18/23 09:06 11/18/23 07:58
Intake and Output
11/17/23 11/18/23 11/19/23
06:59 06:59 06:59
Intake Total 500 / 500 240 / 240
Output Total 1000 / 1000 1250 / 1250 150 / 150
Balance -500 / -500 -1010 / -1010 -150 / -150
SaO2: 96
Nasal Cannula flow liters per minute: 10
Physical Exam
General: Respiratory Distress (n), Comfortable, Poor Appetite and Other (NAD, chronically ill appearing)
HEENT: Normocephalic, Anicteric and Moist Mucous Membranes
Cardiovascular: Regular Rhythm and Peripheral Edema (Negative)
Respiratory: Clear (Prolonged expiratory time and diminished breath sounds f), Wheeze (Forced expiratory), Crackles (Bilaterally), Rhonchi (negative), Non-Labored Respirations, Accessory Resp Muscle Use (n) and Stridor (n)
GI: Soft, Non Distended and Non Tender
Neurology: Awake, Alert and No Motor Deficits
Skin: Warm, Dry, Good Color, Cyanosis (n), Jaundice (n) and Other (Clubbing seen)
Labs/Micro/Reports
Lab Data
11/16/23 04:31
11/18/23 05:31
[2023-11-18] MEDS: LASIX 20 MG IV (12:06)
--- NOTE | 2023-11-18 12:52 | PTCARENOTE ---
Assumed care of patient at beginning of this shift from previous RN; cannot verify accuracy of vital signs prior to 0700. Patient OOB to chair this morning x1 assist. POx 92-93% on 7L midflow currently. He is using IS and acapella. Patient gets MEADOWS
and SOB on minimal exertion. Lasix 20mg IV ordered as a one-time dose per Dr Linares; patient agreeable to take med today (he did refuse yesterday). See worklist for full assessment and vital signs; see MAR for med administration.
--- NOTE | 2023-11-18 14:26 | W.PN.HOSP.TC ---
Today's Communication/Plan
-
Decadron
Wean O2 as tolerated
ANtibiotics
Assessment / Plan
Assessment / Plan
Cardiovascular system S1-S2 appreciated
Chest bilateral rales
Abdomen soft and nontender
No pedal edema
Nonfocal neuro exam
# Syncope
Patient has a history of orthostatic hypotension
Non-NE troponin elevation
Unclear if he had a mucous plug as he was also in respiratory distress when he came in.
Likely Syncope from Hypoxia from Resp reasons.
No PE
# Acute on chronic hypoxic respiratory failure
Was doing well but had a coughing spasm after which he required more oxygen.
Patient is chronically on 2 L of oxygen
Off high flow now- On 7-8 L now
Oxygen requirements has been varying. Try to wean as possible.
Continue Acapella
Repeat Sputum Cx
Decadron 4 mg every 8 hours with a quick taper for COPD exacerbation
Nebulizer treatments
Mucolytic's
Pulmonary consultation appreciated
Speech evaluation noted. No aspiration
# Hypokalemia-replaced

# Chronic orthostatic hypotension on midodrine and Florinef
# COVID-19 infection 1 month ago
# Stage IV colon cancer--recurrence from previous-completed chemotherapy November 2022
History of right hemicolectomy several years ago
Being followed by [facility]
# Idiopathic pulmonary fibrosis
# Hyperlipidemia-continue statin and Zetia
# Prostate disease-continue Flomax
# History of liver abscess with drainage
# Diabetes by history-hemoglobin A1c 5.5
# Dementia per history
# Infrarenal abdominal aortic aneurysm 3.2 cm
# Ambulatory dysfunction
# Ex-smoker quit 1968
# DVT prophylaxis-Lovenox
# DNR status per discussion with patient and daughter at bedside
D/W Nursing at bed side
D/W Pulm
Spoke to patient's daughter Farhana and updated 11/18/2023
Anticipated Discharge: > 48 hours
Subjective/Interval History
-
Date of Service: November 18, 2023
Objective Data
-
Labs:
Laboratory Results
11/18/23
05:31
Sodium 138
Potassium 4.1
Chloride 103
Carbon Dioxide 33 H
BUN 36 H
Creatinine 0.8
Glucose 119 H
Calcium 8.5
Vital Signs:
Vital Signs
Temp Pulse Resp BP Pulse Ox
97.5 F 93 24 130/78 87
11/18/23 11:09 11/18/23 12:00 11/18/23 12:00 11/18/23 12:06 11/18/23 12:00
I&O
11/17/23 11/18/23 11/19/23
06:59 06:59 06:59
Intake Total 500 / 500 240 / 240 480 / 480
Output Total 1000 / 1000 1250 / 1250 750 / 750
Balance -500 / -500 -1010 / -1010 -270 / -270
[2023-11-18] MEDS: DECADRON 4 MG IV ×2 (17:01→23:42)
[2023-11-18] MEDS: LOVENOX 40 MG SC (17:01)
[2023-11-18] MEDS: FLOMAX 0.400000000000000022 MG PO (20:33)
[2023-11-18] MEDS: CRESTOR 40 MG PO (20:34)
[2023-11-18] MEDS: ZYRTEC 5 MG PO (20:34)
[2023-11-18] MEDS: ZETIA 10 MG PO (20:34)
[2023-11-18] MEDS: FLUSH (NSS) 4 FLUSH IV (23:44)
[2023-11-19] VITALS (15 sets, daily range): BP systolic 115–164; BP diastolic 71–103; PULSE 83–88; O2SAT 91–93
[2023-11-19 05:50] LABS: Hematocrit 39.1 % (39.0-52.0); Hemoglobin 12.6 g/dL (13.0-18.0); Mean Corp Hgb Conc. 32.2 g/dL (33.0-37.0); Mean Corpuscular Hgb 30.4 pg (27.0-31.0); Mean Corpuscular Volume 94.2 fL (80.0-94.0); Mean Platelet Volume 9.2 fL (7.4-10.4); Platelet Count 132 10^3/uL (130-400); Red Blood Cell Count 4.15 10^6/uL (4.70-6.10); Red Cell Dist. Width 14.2 % (11.5-14.5); White Blood Cell Count 6.2 10^3/uL (4.8-10.8)
[2023-11-19 06:22] LABS: Blood Urea Nitrogen 36 mg/dl (9-20); Calcium 8.6 mg/dl (8.4-10.2); Carbon Dioxide 35 mmol/L (22-30); Chloride 98 mmol/L (98-107); Estimated Creatinine Clearance 65 ml/min; Glucose 124 mg/dl (70-99); Potassium 4.1 mmol/L (3.5-5.1); Sodium 135 mmol/L (135-145); eGFR > 60.00
[2023-11-19] MEDS: DUONEB 3 ML INH ×4 (07:59→19:51)
--- NOTE | 2023-11-19 08:00 | W.PN.HOSP.TC ---
Today's Communication/Plan
-
IV steroids. Supplemental oxygen.
Assessment / Plan
Assessment / Plan
Physical exam:
General: Well Developed, Well Nourished and No Apparent Distress
HEENT: Normocephalic, Atraumatic and Moist Mucous Membranes
Respiratory: Clear to Auscultation; Negative Wheezes, Rales or Rhonchi
Cardiac: Regular Rhythm and S1/S2
GI: Soft, Nontender and Nondistended
Musculoskeletal: No Clubbing, No Cyanosis and No Edema
Neuro: Awake, Alert and Oriented
Psych: Calm
A/P:
# Syncope
Patient has a history of orthostatic hypotension
Non-ID troponin elevation
Unclear if he had a mucous plug as he was also in respiratory distress when he came in.
Likely Syncope from Hypoxia from Resp reasons.
No PE
# Acute on chronic hypoxic respiratory failure
Currently he is down to 5 L of oxygen
Continue IV steroids and no change in doses or frequency (4 mg IV every 8 hours)
Continue oral antibiotics
Follow pulmonary further recommendations
Continue bronchodilators
Continue mucus clearance devices
Prior to today:
Was doing well but had a coughing spasm after which he required more oxygen.
Patient is chronically on 2 L of oxygen
Oxygen requirements has been varying. Try to wean as possible.
Continue Acapella
Repeat Sputum Cx
Decadron 4 mg every 8 hours with a quick taper for COPD exacerbation
Nebulizer treatments
Mucolytic's
Pulmonary consultation appreciated
Speech evaluation noted. No aspiration
# Hypokalemia-replaced

# Chronic orthostatic hypotension on midodrine and Florinef
# COVID-19 infection 1 month ago
# Stage IV colon cancer--recurrence from previous-completed chemotherapy November 2022
History of right hemicolectomy several years ago
Being followed by [place] [facility]
# Idiopathic pulmonary fibrosis
# Hyperlipidemia-continue statin and Zetia
# Prostate disease-continue Flomax
# History of liver abscess with drainage
# Diabetes by history-hemoglobin A1c 5.5
# Dementia per history
# Infrarenal abdominal aortic aneurysm 3.2 cm
# Ambulatory dysfunction
# Ex-smoker quit 1968
# DVT prophylaxis-Lovenox
# DNR status per discussion with patient and daughter at bedside
D/W Nursing
Total time spent on today's encounter was 52 minutes which included time spent in counseling the patient/family regarding diagnosis and treatment plan as listed above, goals of care, and symptom management. Case was discussed with nursing staff,
specialists, and care coordinators/case management. All labs and imaging personally reviewed by me. Remainder the time spent in detailed review of previous records, lab data, imaging, and other medical provider documentation.
Anticipated Discharge: > 48 hours
Subjective/Interval History
-
Date of Service: November 19, 2023
Patient still feels short of breath but much less than before. No chest pain. Afebrile. On supplemental oxygen.
Objective Data
-
Labs:
Laboratory Results
11/19/23
05:21
WBC 6.2
Hgb 12.6 L
Hct 39.1
Plt Count 132
Sodium 135
Potassium 4.1
Chloride 98
Carbon Dioxide 35 H
BUN 36 H
Creatinine 0.8
Glucose 124 H
Calcium 8.6
Vital Signs:
Vital Signs
Temp Pulse Resp BP Pulse Ox
97.6 F 54 17 151/77 94
04/03/24 04:27 11/19/23 06:00 11/19/23 06:00 11/19/23 06:00 11/19/23 06:00
I&O
11/18/23 11/19/23 11/20/23
06:59 06:59 06:59
Intake Total 240 / 240 1080 / 1080
Output Total 1250 / 1250 1400 / 1400 200 / 200
Balance -1010 / -1010 -320 / -320 -200 / -200
Review of Systems
-
All other systems: Reviewed and negative
--- NOTE | 2023-11-19 08:57 | W.PN.PUL.V3 ---
Today's Communication / Plan
-
Wean oxygen-Down to 5 L-reviewed with X RAY OPERATOR
Continue nebulizers
No change in Decadron
Continue mucus clearing devices-feels like vest is helping him-continue twice daily
Assessment
-
Patient is an 82-year-old male, with past history of ILD, chronic hypoxemia on baseline 2L NC following at [facility], HLD presented to the hospital after an episode of syncope. He was walking in his bedroom from the restroom when he passed out. Initial
head CT showing no acute findings. On arrival, he was notably hypoxemic with increased WOB, placed on HFNC. CT showing diffuse ILD, no comparative studies for eval of disease progression. We are consulted for eval.
Acute on chronic respiratory failure on midflow nasal cannula
Underlying pulm fibrosis on O2 2L as baseline with acute ILD exacerbation
Hypokalemia
Chronic hypercarbia, compensated 7.41/50
DNR
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
Orthostatic Hypotension
Colon Cancer, s/p R hemicolectomy
DM-II
Senile Dementia
Hypertension
Pulmonary Fibrosis
Not on antifibrotic meds
He follows with Dr Mendoza at [place] and told he has 25% lung function.
Chronic Hypoxemic Respiratory Failure, 2L at baseline, has needed up to 6L
Hepatic Abscess / Sepsis
BPH with LUTS
Infrarenal abdominal aortic aneurysm measuring 3.1 cm.
Ambulatory Dysfunction
Hearing loss
Former Smoker (Quit smoking in 1968)
Plan
Respiratory status tenuous but improving with decreased FiO2 requirements
Still on high FiO2-attempt to wean-this morning weaned to 5 L-reviewed with X RAY OPERATOR
Aspiration precautions-speech therapy following
Continue with nebulizers
Decadron 4 mg every 8 hours-no change-consider reduction in the next 24 hours if continues to improve
Mucolytic's continue
Vest therapy-appears to be helping
Mucus mobilizing devices continue
CT chest 11/12/2023-personally reviewed-there are areas of bronchiectasis-hopefully this can qualify patient for vest therapy as an outpatient
Cultures reviewed
Repeat sputum culture-poor specimen
Empiric antibiotics continue
DVT prophylaxis
GI prophylaxis-on pantoprazole
Long-term prognosis unfortunately quite poor-patient understands he has end-stage lung disease-not sure how much improvement we can accomplish
Patient usually follows with Dr Mendoza at [facility] --> patient no longer wants to follow with [facility] and wishes to transition to us.
Patient wishes to transition his pulmonary care to us at [facility]. Outpatient medical records will need to be obtained from [facility]-if vest therapy is considered I do believe some bronchiectasis is present on CT chest 10/2023
Diagnostic Data
CXR 11-16-2023-Persistent generalized bilateral interstitial prominence, and mild hazy opacity, raising the possibility of an airspace/acinar component. Relatively stable compared to prior examination. No pneumothorax. No radiographically
demonstrable pleural effusion. The cardiomediastinal margins are stable.
CXR 11/09/23- No acute cardiopulmonary process. Persistent severe bilateral interstitial fibrosis similar to previous exams.
CXR 12-20 c/w below, some interim clearing of bilateral patchy infiltrates
CXR 08-04-23, no comparison films, portable, bilateral fibrotic changes, patchy areas of infiltrates of unknown chronicity, mildly elevated R diaphragm. R chest port-A-cath
CT CHEST 11/12/23- No evidence of central pulmonary embolism. Findings with prominent bilateral chronic interstitial/fibrotic changes. Some groundglass opacification bilaterally, nonspecific, possibly representing some acute pulmonary edematous
changes.
CT HEAD 11/12/23- No acute intracranial abnormalities. Findings compatible with diffuse cortical atrophy with nonspecific white matter changes. Chronic bilateral maxillary sinus inflammatory changes.
CT abd/p c/IV 08-04-23
COMPARISON: 07/27/2023.
IMPRESSION: Stable examination. No new or acute abnormality within the abdomen or pelvis. Stable chronic interstitial fibrotic changes. Stable small low-attenuation hepatic structures. Stable Subtle density along the dependent margin could represent
sludge. No gallbladder wall thickening appreciated. No bile duct dilatation. Stable small low-attenuation pancreatic mass. Stable nonobstructing renal calculi. Stable bilateral renal cystic structures. Mild to moderate colonic fecal burden. No
evidence of bowel obstruction. No bowel wall thickening. Stable infrarenal abdominal aortic aneurysm measuring 3.1 cm.
Subjective Data
-
Date of Service:
Date of Service: November 19, 2023
Chief Complaint: Pulmonary Follow Up and Dyspnea Follow Up
Subjective:
Feels better, less short of breath, less chest congestion, feels like is helping mobilize secretions, no chest pain or abdominal pain vest
Review of Systems
General: Other (Per HPI)
Objective Data
Data Reviewed
Vital Signs / I&O:
Vital Signs
Temp Pulse Resp BP Pulse Ox
97.6 F 68 18 151/77 92
11/19/23 04:27 11/19/23 08:11 11/19/23 08:11 11/19/23 06:00 11/19/23 08:11
Intake and Output
11/18/23 11/19/23 11/20/23
06:59 06:59 06:59
Intake Total 240 / 240 1080 / 1080
Output Total 1250 / 1250 1400 / 1400 200 / 200
Balance -1010 / -1010 -320 / -320 -200 / -200
SaO2: 92
Nasal Cannula flow liters per minute: 5
Physical Exam
General: Respiratory Distress (n), Comfortable, Poor Appetite and Other (NAD, chronically ill appearing)
HEENT: Normocephalic, Anicteric and Moist Mucous Membranes
Cardiovascular: Regular Rhythm and Peripheral Edema (Negative)
Respiratory: Clear (Prolonged expiratory time and diminished breath sounds f), Wheeze (Forced expiratory), Crackles (Bilaterally), Rhonchi (negative), Non-Labored Respirations, Accessory Resp Muscle Use (n) and Stridor (n)
GI: Soft, Non Distended and Non Tender
Neurology: Awake, Alert and No Motor Deficits
Skin: Warm, Dry, Good Color, Cyanosis (n), Jaundice (n) and Other (Clubbing seen)
Labs/Micro/Reports
Lab Data
11/19/23 05:21
11/19/23 05:21
--- NOTE | 2023-11-19 09:00 | PTCARENOTE ---
Patient received from steward/stewardess night. Patient resting comfortably in bed. AAO, VSS. No events noted overnight. No complaints of pain. O2 was weaned from 7L to 5L, will continue to attempt to wean as tolerated. Will get out to chair when patient
is ready. Call davis in reach.
[2023-11-19] MEDS: ROBITUSSIN 200 MG PO ×4 (09:12→20:24)
[2023-11-19] MEDS: DECADRON 4 MG IV ×2 (09:12→16:38)
[2023-11-19] MEDS: PROTONIX 40 MG PO (09:13)
[2023-11-19] MEDS: SENOKOT 17.1999999999999993 MG PO (09:13)
[2023-11-19] MEDS: MAG-TAB SR 84 MG PO (09:13)
[2023-11-19] MEDS: KCL 20 MEQ PO (09:13)
[2023-11-19] MEDS: CELEBREX 100 MG PO (09:14)
[2023-11-19] MEDS: FLORINEF 0.200000000000000011 MG PO (09:14)
[2023-11-19] MEDS: COLACE 100 MG PO (09:14)
[2023-11-19] MEDS: VITAMIN D3 (cholecalciferol) 50 MCG PO (09:15)
[2023-11-19] MEDS: REFRESH EYE DROPS (PF) 1 DROPS BOTH EYES ×2 (09:15→20:25)
[2023-11-19] MEDS: LEVAQUIN 750 MG PO (09:15)
[2023-11-19] MEDS: MIRALAX 17 GRAMS PO (09:15)
[2023-11-19] MEDS: ProAmatine 10 MG PO ×3 (09:17→17:57)
[2023-11-19] MEDS: LOVENOX 40 MG SC (17:57)
[2023-11-19] MEDS: CRESTOR 40 MG PO (20:24)
[2023-11-19] MEDS: ZETIA 10 MG PO (20:24)
[2023-11-19] MEDS: FLOMAX 0.400000000000000022 MG PO (20:25)
[2023-11-19] MEDS: ZYRTEC 5 MG PO (20:26)
[2023-11-20] VITALS (15 sets, daily range): BP systolic 109–151; BP diastolic 65–83
[2023-11-20] MEDS: FLUSH (NSS) 3 FLUSH IV (00:25)
[2023-11-20] MEDS: DECADRON 4 MG IV ×3 (00:25→19:46)
[2023-11-20] MEDS: MELATONIN 3 MG PO ×2 (00:29→20:07)
[2023-11-20 06:30] LABS: % Immature Granulocytes 0.6 % (0-0.5); % Lymphocytes 3.9 % (20.5-51.1); % Monocytes 4.5 % (1.7-9.3); Absolute Lymphocytes 0.3 10^3/uL (1.2-3.4); Absolute Monocytes 0.3 10^3/uL (0.1-0.6); Absolute Neutrophils 6.5 10^3/uL (1.4-6.5); Hematocrit 38.2 % (39.0-52.0); Hemoglobin 12.9 g/dL (13.0-18.0); Mean Corp Hgb Conc. 33.8 g/dL (33.0-37.0); Mean Corpuscular Hgb 30.9 pg (27.0-31.0); Mean Corpuscular Volume 91.4 fL (80.0-94.0); Mean Platelet Volume 9.3 fL (7.4-10.4); Nucleated Red Blood Cells % 0 % (-); Platelet Count 141 10^3/uL (130-400); Red Blood Cell Count 4.18 10^6/uL (4.70-6.10); Red Cell Dist. Width 14.2 % (11.5-14.5); White Blood Cell Count 7.1 10^3/uL (4.8-10.8)
[2023-11-20 06:54] LABS: Blood Urea Nitrogen 40 mg/dl (9-20); Calcium 8.6 mg/dl (8.4-10.2); Carbon Dioxide 32 mmol/L (22-30); Chloride 99 mmol/L (98-107); Estimated Creatinine Clearance 65 ml/min; Glucose 133 mg/dl (70-99); Potassium 4.1 mmol/L (3.5-5.1); Sodium 135 mmol/L (135-145); eGFR > 60.00
[2023-11-20] MEDS: DUONEB 3 ML INH ×4 (07:42→19:37)
[2023-11-20] MEDS: REFRESH EYE DROPS (PF) 1 DROPS BOTH EYES ×2 (08:32→19:48)
--- NOTE | 2023-11-20 09:00 | PTCARENOTE ---
Patient received from assistant shift supervisor. Patient resting comfortably in bed. AAO, VSS. No events noted overnight. No complaints of pain. Currently on 5L, will continue to attempt to wean as tolerated. Plan to get out to chair after breakfast.
Continuing with IV steroids and PO ABX. Call davis in reach.
--- NOTE | 2023-11-20 09:24 | W.PN.HOSP.TC ---
Today's Communication/Plan
-
IV steroids. Discontinue antibiotics and observe. Continue PT eval. Oxygen supplementation.
Assessment / Plan
Assessment / Plan
Physical exam:
General: Well Developed, Well Nourished and No Apparent Distress
HEENT: Normocephalic, Atraumatic and Moist Mucous Membranes
Respiratory: Clear to Auscultation; Negative Wheezes, Rales or Rhonchi
Cardiac: Regular Rhythm and S1/S2
GI: Soft, Nontender and Nondistended
Musculoskeletal: No Clubbing, No Cyanosis and No Edema
Neuro: Awake, Alert and Oriented
Psych: Calm
A/P:
# Syncope
Patient has a history of orthostatic hypotension
Non-AR troponin elevation
Unclear if he had a mucous plug as he was also in respiratory distress when he came in.
Likely Syncope from Hypoxia from Resp reasons.
No PE
PT recommends skilled rehab
# Acute on chronic hypoxic respiratory failure. Underlying pulmonary fibrosis on home oxygen. Bronchiectasis. Acute interstitial lung disease exacerbation.
Currently he is down to 5 L of oxygen--> wean oxygen as able.
Continue IV steroids and pulmonary recommended decrease doses of dexamethasone to 4 mg IV every 12 hours today. Slow taper directed by pulmonary
Start oral antibiotics per pulmonary recommendations and observe.
Appreciated pulmonary consult and follow-up
Continue bronchodilators
Continue mucus clearance devices
Prior to today:
Was doing well but had a coughing spasm after which he required more oxygen.
Patient is chronically on 2 L of oxygen
Oxygen requirements has been varying. Try to wean as possible.
Continue Acapella
Repeat Sputum Cx
Decadron 4 mg every 8 hours with a quick taper for COPD exacerbation
Nebulizer treatments
Mucolytic's
Pulmonary consultation appreciated
Speech evaluation noted. No aspiration
# Hypokalemia-replaced

# Chronic orthostatic hypotension on midodrine and Florinef
# COVID-19 infection 1 month ago
# Stage IV colon cancer--recurrence from previous-completed chemotherapy November 2022
History of right hemicolectomy several years ago
Being followed by [place] [facility]
# Idiopathic pulmonary fibrosis
# Hyperlipidemia-continue statin and Zetia
# Prostate disease-continue Flomax
# History of liver abscess with drainage
# Diabetes by history-hemoglobin A1c 5.5
# Dementia per history
# Infrarenal abdominal aortic aneurysm 3.2 cm
# Ambulatory dysfunction
# Ex-smoker quit 1968
# DVT prophylaxis-Lovenox
# DNR status per discussion with patient and daughter at bedside
D/W Nursing
Total time spent on today's encounter was 52 minutes which included time spent in counseling the patient/family regarding diagnosis and treatment plan as listed above, goals of care, and symptom management. Case was discussed with nursing staff,
specialists, and care coordinators/case management. All labs and imaging personally reviewed by me. Remainder the time spent in detailed review of previous records, lab data, imaging, and other medical provider documentation.
Anticipated Discharge: 24 - 48 hours
Subjective/Interval History
-
Date of Service: November 20, 2023
Patient feels better overall. Less shortness of breath. Afebrile. He tells me that VEST is helping expectorate more.
Objective Data
-
Labs:
Laboratory Results
11/20/23
04:56
WBC 7.1
Hgb 12.9 L
Hct 38.2 L
Plt Count 141
Sodium 135
Potassium 4.1
Chloride 99
Carbon Dioxide 32 H
BUN 40 H
Creatinine 0.8
Glucose 133 H
Calcium 8.6
Vital Signs:
Vital Signs
Temp Pulse Resp BP Pulse Ox
97.4 F 73 18 147/81 92
11/20/23 08:52 11/20/23 07:48 11/20/23 07:48 11/20/23 06:00 11/20/23 07:48
I&O
11/19/23 11/20/23 11/21/23
06:59 06:59 06:59
Intake Total 1080 / 1080 700 / 700
Output Total 1400 / 1400 1075 / 1075
Balance -320 / -320 -375 / -375
Review of Systems
-
All other systems: Reviewed and negative
[2023-11-20] MEDS: CELEBREX 100 MG PO (09:43)
[2023-11-20] MEDS: COLACE 100 MG PO (09:43)
[2023-11-20] MEDS: KCL 20 MEQ PO (09:45)
[2023-11-20] MEDS: LEVAQUIN 750 MG PO (09:45)
[2023-11-20] MEDS: FLORINEF 0.200000000000000011 MG PO (09:45)
[2023-11-20] MEDS: MAG-TAB SR 84 MG PO (09:46)
[2023-11-20] MEDS: MIRALAX 17 GRAMS PO (09:46)
[2023-11-20] MEDS: ProAmatine 10 MG PO ×3 (09:46→17:31)
[2023-11-20] MEDS: VITAMIN D3 (cholecalciferol) 50 MCG PO (09:47)
[2023-11-20] MEDS: PROTONIX 40 MG PO (09:47)
[2023-11-20] MEDS: ROBITUSSIN 200 MG PO ×4 (09:47→19:46)
[2023-11-20] MEDS: SENOKOT 17.1999999999999993 MG PO (09:47)
--- NOTE | 2023-11-20 09:56 | W.PN.PUL.V3 ---
Today's Communication / Plan
-
Continue attempts at weaning FiO2
Increase activity
Decrease Decadron
Observe off antibiotics
Continue mucus clearing devices/vest therapy
Assessment
-
Patient is an 82-year-old male, with past history of ILD, chronic hypoxemia on baseline 2L NC following at [facility], HLD presented to the hospital after an episode of syncope. He was walking in his bedroom from the restroom when he passed out. Initial
head CT showing no acute findings. On arrival, he was notably hypoxemic with increased WOB, placed on HFNC. CT showing diffuse ILD, no comparative studies for eval of disease progression. We are consulted for eval.
Acute on chronic respiratory failure on midflow nasal cannula
Underlying pulm fibrosis on O2 2L as baseline with acute ILD exacerbation
Hypokalemia
Chronic hypercarbia, compensated 7.41/50
DNR
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
Orthostatic Hypotension
Colon Cancer, s/p R hemicolectomy
DM-II
Senile Dementia
Hypertension
Pulmonary Fibrosis
Not on antifibrotic meds
He follows with Dr Mendoza at [place] and told he has 25% lung function.
Chronic Hypoxemic Respiratory Failure, 2L at baseline, has needed up to 6L
Hepatic Abscess / Sepsis
BPH with LUTS
Infrarenal abdominal aortic aneurysm measuring 3.1 cm.
Ambulatory Dysfunction
Hearing loss
Former Smoker (Quit smoking in 1968)
Plan
Respiratory status tenuous but improving with decreased FiO2 requirements
Still on high FiO2-attempt to wean-currently on 5 L mid flow
Aspiration precautions-speech therapy following
Continue with nebulizers
Decadron 4 mg every 8 hours-will decrease to every 12 hours
Mucolytic's continue
Vest therapy-appears to be helping
Mucus mobilizing devices continue
CT chest 11/12/2023-personally reviewed-there are areas of bronchiectasis-hopefully this can qualify patient for vest therapy as an outpatient
Cultures reviewed
Repeat sputum culture-poor specimen
Observe off antibiotics
DVT prophylaxis
GI prophylaxis-on pantoprazole
Long-term prognosis unfortunately quite poor-patient understands he has end-stage lung disease-not sure how much improvement we can accomplish
Patient usually follows with Dr Mendoza at [facility] --> patient no longer wants to follow with [facility] and wishes to transition to us.
Patient wishes to transition his pulmonary care to us at [facility] Outpatient medical records will need to be obtained from [facility]-if vest therapy is considered I do believe some bronchiectasis is present on CT chest 10/2023
Diagnostic Data
CXR 11-16-2023-Persistent generalized bilateral interstitial prominence, and mild hazy opacity, raising the possibility of an airspace/acinar component. Relatively stable compared to prior examination. No pneumothorax. No radiographically
demonstrable pleural effusion. The cardiomediastinal margins are stable.
CXR 11/09/23- No acute cardiopulmonary process. Persistent severe bilateral interstitial fibrosis similar to previous exams.
CXR 12-20 c/w below, some interim clearing of bilateral patchy infiltrates
CXR 08-04-23, no comparison films, portable, bilateral fibrotic changes, patchy areas of infiltrates of unknown chronicity, mildly elevated R diaphragm. R chest port-A-cath
CT CHEST 11/12/23- No evidence of central pulmonary embolism. Findings with prominent bilateral chronic interstitial/fibrotic changes. Some groundglass opacification bilaterally, nonspecific, possibly representing some acute pulmonary edematous
changes.
CT HEAD 11/12/23- No acute intracranial abnormalities. Findings compatible with diffuse cortical atrophy with nonspecific white matter changes. Chronic bilateral maxillary sinus inflammatory changes.
CT abd/p c/IV 08-04-23
COMPARISON: 07/27/2023.
IMPRESSION: Stable examination. No new or acute abnormality within the abdomen or pelvis. Stable chronic interstitial fibrotic changes. Stable small low-attenuation hepatic structures. Stable Subtle density along the dependent margin could represent
sludge. No gallbladder wall thickening appreciated. No bile duct dilatation. Stable small low-attenuation pancreatic mass. Stable nonobstructing renal calculi. Stable bilateral renal cystic structures. Mild to moderate colonic fecal burden. No
evidence of bowel obstruction. No bowel wall thickening. Stable infrarenal abdominal aortic aneurysm measuring 3.1 cm.
Subjective Data
-
Date of Service:
Date of Service: November 20, 2023
Chief Complaint: Pulmonary Follow Up and Dyspnea Follow Up
Subjective:
Feels about the same, no complaints of worsening shortness of breath, increased chest congestion, productive cough, abdominal pain
Review of Systems
General: Other (Per HPI)
Objective Data
Data Reviewed
Vital Signs / I&O:
Vital Signs
Temp Pulse Resp BP Pulse Ox
97.4 F 73 18 147/81 92
11/20/23 08:52 11/20/23 07:48 11/20/23 07:48 11/20/23 06:00 11/20/23 07:48
Intake and Output
11/19/23 11/20/23 11/21/23
06:59 06:59 06:59
Intake Total 1080 / 1080 700 / 700
Output Total 1400 / 1400 1075 / 1075
Balance -320 / -320 -375 / -375
SaO2: 92
Nasal Cannula flow liters per minute: 5
Physical Exam
General: Respiratory Distress (n), Comfortable, Poor Appetite and Other (NAD, chronically ill appearing)
HEENT: Normocephalic, Anicteric and Moist Mucous Membranes
Cardiovascular: Regular Rhythm and Peripheral Edema (Negative)
Respiratory: Clear (Prolonged expiratory time and diminished breath sounds f), Wheeze (Forced expiratory), Crackles (Bilaterally), Rhonchi (negative), Non-Labored Respirations, Accessory Resp Muscle Use (n) and Stridor (n)
GI: Soft, Non Distended and Non Tender
Neurology: Awake, Alert and No Motor Deficits
Skin: Warm, Dry, Good Color, Cyanosis (n), Jaundice (n) and Other (Clubbing seen)
Labs/Micro/Reports
Lab Data
11/20/23 04:56
11/20/23 04:56
[2023-11-20] MEDS: LOVENOX 40 MG SC (17:31)
--- NOTE | 2023-11-20 18:00 | CM ---
Patient who resides at [facility] with Dx Syncope, Acute on chronic hypoxic respiratory failure. O2 5L midflow. Receiving IV Decadron. PT & OT recommend skilled rehab.
Plan contact [facility] tomorrow and initiate SNF auth.
Plan [facility] SNF when medically ready and insurance approves.
[2023-11-20] MEDS: ZYRTEC 5 MG PO (19:46)
[2023-11-20] MEDS: FLOMAX 0.400000000000000022 MG PO (19:46)
[2023-11-20] MEDS: ZETIA 10 MG PO (19:46)
[2023-11-20] MEDS: CRESTOR 40 MG PO (19:46)
[2023-11-21] VITALS (16 sets, daily range): BP systolic 110–155; BP diastolic 58–80; PULSE 70–78; O2SAT 89–95
--- NOTE | 2023-11-21 03:31 | PTCARENOTE ---
Pt received from previous shift. Pt pleasant and agreeable to care. Alert to person, place, time, and situation. Pt currently on 5L NC 02, currently maintaining sats of 94% and above. Pt lungs presenting with course sounds scattered throughout the
bases bilaterally. Pt using the incentive spirometer proactively, and tolerating. Pt voiding without difficulty with the urinal, yellow urine throughout the night. Pt took HS pills without difficulty with water. See nursing shift assessment for
head to toe. No acute changes overnight.
[2023-11-21 05:17] LABS: % Immature Granulocytes 0.5 % (0-0.5); % Lymphocytes 4.7 % (20.5-51.1); % Monocytes 6.6 % (1.7-9.3); % Neutrophils 88.2 % (42.2-75.2); Absolute Lymphocytes 0.4 10^3/uL (1.2-3.4); Absolute Monocytes 0.5 10^3/uL (0.1-0.6); Hematocrit 38.8 % (39.0-52.0); Hemoglobin 12.9 g/dL (13.0-18.0); Mean Corp Hgb Conc. 33.2 g/dL (33.0-37.0); Mean Corpuscular Hgb 30.4 pg (27.0-31.0); Mean Corpuscular Volume 91.3 fL (80.0-94.0); Mean Platelet Volume 8.9 fL (7.4-10.4); Nucleated Red Blood Cells % 0 % (-); Platelet Count 125 10^3/uL (130-400); Red Blood Cell Count 4.25 10^6/uL (4.70-6.10); Red Cell Dist. Width 14.1 % (11.5-14.5); White Blood Cell Count 7.9 10^3/uL (4.8-10.8)
[2023-11-21 05:55] LABS: Blood Urea Nitrogen 41 mg/dl (9-20); Calcium 8.7 mg/dl (8.4-10.2); Carbon Dioxide 33 mmol/L (22-30); Chloride 96 mmol/L (98-107); Estimated Creatinine Clearance 74 ml/min; Glucose 129 mg/dl (70-99); Potassium 4.4 mmol/L (3.5-5.1); Sodium 135 mmol/L (135-145); eGFR > 60.00
[2023-11-21] MEDS: DUONEB 3 ML INH ×4 (07:58→20:08)
[2023-11-21] MEDS: ProAmatine 10 MG PO ×3 (08:19→17:15)
[2023-11-21] MEDS: MIRALAX 17 GRAMS PO (08:19)
[2023-11-21] MEDS: MAG-TAB SR 84 MG PO (08:20)
[2023-11-21] MEDS: SENOKOT 17.1999999999999993 MG PO (08:20)
[2023-11-21] MEDS: VITAMIN D3 (cholecalciferol) 50 MCG PO (08:20)
[2023-11-21] MEDS: CELEBREX 100 MG PO (08:20)
[2023-11-21] MEDS: FLORINEF 0.200000000000000011 MG PO (08:20)
[2023-11-21] MEDS: REFRESH EYE DROPS (PF) 1 DROPS BOTH EYES ×2 (08:20→21:14)
[2023-11-21] MEDS: ROBITUSSIN 200 MG PO ×4 (08:20→20:37)
[2023-11-21] MEDS: PROTONIX 40 MG PO (08:20)
[2023-11-21] MEDS: COLACE 100 MG PO (08:20)
[2023-11-21] MEDS: KCL 20 MEQ PO (08:20)
[2023-11-21] MEDS: DECADRON 4 MG IV ×2 (08:21→20:36)
--- NOTE | 2023-11-21 09:37 | W.PN.HOSP.TC ---
Today's Communication/Plan
-
observe off abx
IV steroids
wean o2 as tolerated
Assessment / Plan
Assessment / Plan
Physical exam:
General: Well Developed, Well Nourished and No Apparent Distress
HEENT: Normocephalic, Atraumatic and Moist Mucous Membranes
Respiratory: mild rhonchi, 5L NC
Cardiac: Regular Rhythm and S1/S2
GI: Soft, Nontender and Nondistended
Musculoskeletal: No Clubbing, No Cyanosis and No Edema
Neuro: Awake, Alert and Oriented
Psych: Calm
A/P:
# Syncope
Patient has a history of orthostatic hypotension
Non-[place] troponin elevation
Unclear if he had a mucous plug as he was also in respiratory distress when he came in.
Likely Syncope from Hypoxia from Resp reasons.
No PE
PT recommends skilled rehab
# Acute on chronic hypoxic respiratory failure. Underlying pulmonary fibrosis on home oxygen. Bronchiectasis. Acute interstitial lung disease exacerbation.
Currently he is down to 5 L of oxygen--> wean oxygen as able.
Continue IV steroids and pulmonary recommended decrease doses of dexamethasone to 4 mg IV every 12 hours. Slow taper directed by pulmonary
s/p levaquin. Abx Dced per pulm. observe off abx. Procal negativ.e
Appreciated pulmonary consult and follow-up
Continue bronchodilators
Continue mucus clearance devices
Prior to today:
Was doing well but had a coughing spasm after which he required more oxygen.
Patient is chronically on 2 L of oxygen
Oxygen requirements has been varying. Try to wean as possible.
Continue Acapella
Repeat Sputum Cx
Decadron 4 mg every 8 hours with a quick taper for COPD exacerbation
Nebulizer treatments
Mucolytic's
Pulmonary consultation appreciated
Speech evaluation noted. No aspiration
# Hypokalemia-replaced

# Chronic orthostatic hypotension on midodrine and Florinef
# COVID-19 infection 1 month ago
# Stage IV colon cancer--recurrence from previous-completed chemotherapy November 2022
History of right hemicolectomy several years ago
Being followed by [facility]
# Idiopathic pulmonary fibrosis
# Hyperlipidemia-continue statin and Zetia
# Prostate disease-continue Flomax
# History of liver abscess with drainage
# Diabetes by history-hemoglobin A1c 5.5
# Dementia per history
# Infrarenal abdominal aortic aneurysm 3.2 cm
# Ambulatory dysfunction
# Ex-smoker quit 1968
# DVT prophylaxis-Lovenox
# DNR status per discussion with patient and daughter at bedside
D/W Nursing
Anticipated Discharge: > 48 hours
Subjective/Interval History
-
Date of Service: November 21, 2023
remains on 5L oxygen
states breathing is same
Objective Data
-
Labs:
Laboratory Results
11/21/23
05:06
WBC 7.9
Hgb 12.9 L
Hct 38.8 L
Plt Count 125 L
Sodium 135
Potassium 4.4
Chloride 96 L
Carbon Dioxide 33 H
BUN 41 H
Creatinine 0.7
Glucose 129 H
Calcium 8.7
Vital Signs:
Vital Signs
Temp Pulse Resp BP Pulse Ox
97.5 F 77 22 142/76 93
11/21/23 07:47 11/21/23 08:04 11/21/23 08:04 11/21/23 08:19 11/21/23 08:04
I&O
11/20/23 11/21/23 11/22/23
06:59 06:59 06:59
Intake Total 700 / 700 960 / 960
Output Total 1075 / 1075 1075 / 1075 125 / 125
Balance -375 / -375 -115 / -115 -125 / -125
Data Reviewed
-
Total Time Spent with Patient (in minutes): 55
--- NOTE | 2023-11-21 09:49 | W.PN.PUL.V3 ---
Today's Communication / Plan
-
Continue steroids
Observe off antibiotics
No change in Decadron-consider decreasing or changing to oral in the next 24-48 hours
Stable for transfer out of IMU from a pulmonary perspective to telemetry
Assessment
-
Patient is an 82-year-old male, with past history of ILD, chronic hypoxemia on baseline 2L NC following at [facility], HLD presented to the hospital after an episode of syncope. He was walking in his bedroom from the restroom when he passed out. Initial
head CT showing no acute findings. On arrival, he was notably hypoxemic with increased WOB, placed on HFNC. CT showing diffuse ILD, no comparative studies for eval of disease progression. We are consulted for eval.
Acute on chronic respiratory failure on midflow nasal cannula
Underlying pulm fibrosis on O2 2L as baseline with acute ILD exacerbation
Hypokalemia
Chronic hypercarbia, compensated 7.41/50
DNR
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
Orthostatic Hypotension
Colon Cancer, s/p R hemicolectomy
DM-II
Senile Dementia
Hypertension
Pulmonary Fibrosis
Not on antifibrotic meds
He follows with Dr Mendoza at [place] and told he has 25% lung function.
Chronic Hypoxemic Respiratory Failure, 2L at baseline, has needed up to 6L
Hepatic Abscess / Sepsis
BPH with LUTS
Infrarenal abdominal aortic aneurysm measuring 3.1 cm.
Ambulatory Dysfunction
Hearing loss
Former Smoker (Quit smoking in 1968)
Plan
Respiratory status very slowly improving
Still on high FiO2-attempt to wean-currently on 5 L mid flow
Aspiration precautions-speech therapy following
Continue with nebulizers
Decadron 4 mg every 12 hours-no change
Mucolytic's continue
Vest therapy-appears to be helping
Mucus mobilizing devices continue
CT chest 11/12/2023-personally reviewed-there are areas of bronchiectasis-hopefully this can qualify patient for vest therapy as an outpatient
Cultures reviewed
Repeat sputum culture-poor specimen
Observe off antibiotics
DVT prophylaxis-patient on Lovenox
GI prophylaxis-on pantoprazole
Stable for transfer out of IMU to telemetry from a pulmonary perspective
Long-term prognosis unfortunately quite poor-patient understands he has end-stage lung disease-not sure how much improvement we can accomplish
Patient usually follows with Dr Mendoza at [facility] --> patient no longer wants to follow with [facility] and wishes to transition to us.
Patient wishes to transition his pulmonary care to us at [facility]. Outpatient medical records will need to be obtained from [facility]-if vest therapy is considered I do believe some bronchiectasis is present on CT chest 10/2023
Diagnostic Data
CXR 11-16-2023-Persistent generalized bilateral interstitial prominence, and mild hazy opacity, raising the possibility of an airspace/acinar component. Relatively stable compared to prior examination. No pneumothorax. No radiographically
demonstrable pleural effusion. The cardiomediastinal margins are stable.
CXR 11/09/23- No acute cardiopulmonary process. Persistent severe bilateral interstitial fibrosis similar to previous exams.
CXR 12-20 c/w below, some interim clearing of bilateral patchy infiltrates
CXR 08-04-23, no comparison films, portable, bilateral fibrotic changes, patchy areas of infiltrates of unknown chronicity, mildly elevated R diaphragm. R chest port-A-cath
CT CHEST 11/12/23- No evidence of central pulmonary embolism. Findings with prominent bilateral chronic interstitial/fibrotic changes. Some groundglass opacification bilaterally, nonspecific, possibly representing some acute pulmonary edematous
changes.
CT HEAD 11/12/23- No acute intracranial abnormalities. Findings compatible with diffuse cortical atrophy with nonspecific white matter changes. Chronic bilateral maxillary sinus inflammatory changes.
CT abd/p c/IV 08-04-23
COMPARISON: 07/27/2023.
IMPRESSION: Stable examination. No new or acute abnormality within the abdomen or pelvis. Stable chronic interstitial fibrotic changes. Stable small low-attenuation hepatic structures. Stable Subtle density along the dependent margin could represent
sludge. No gallbladder wall thickening appreciated. No bile duct dilatation. Stable small low-attenuation pancreatic mass. Stable nonobstructing renal calculi. Stable bilateral renal cystic structures. Mild to moderate colonic fecal burden. No
evidence of bowel obstruction. No bowel wall thickening. Stable infrarenal abdominal aortic aneurysm measuring 3.1 cm.
Subjective Data
-
Date of Service:
Date of Service: November 21, 2023
Chief Complaint: Pulmonary Follow Up and Dyspnea Follow Up
Subjective:
Feels about the same, slept better with melatonin, no increase shortness of breath, FiO2 weaned to 5 L, less productive sputum, no chest pain or abdominal pain
Review of Systems
General: Other (Per HPI)
Objective Data
Data Reviewed
Vital Signs / I&O:
Vital Signs
Temp Pulse Resp BP Pulse Ox
97.5 F 77 22 142/76 93
11/21/23 07:47 11/21/23 08:04 11/21/23 08:04 11/21/23 08:19 11/21/23 08:04
Intake and Output
11/20/23 11/21/23 11/22/23
06:59 06:59 06:59
Intake Total 700 / 700 960 / 960
Output Total 1075 / 1075 1075 / 1075 125 / 125
Balance -375 / -375 -115 / -115 -125 / -125
SaO2: 93
Nasal Cannula flow liters per minute: 5
Physical Exam
General: Respiratory Distress (n), Comfortable, Poor Appetite and Other (NAD, chronically ill appearing)
HEENT: Normocephalic, Anicteric and Moist Mucous Membranes
Cardiovascular: Regular Rhythm and Peripheral Edema (Negative)
Respiratory: Clear (Prolonged expiratory time and diminished breath sounds f), Wheeze (Forced expiratory), Crackles (Bilaterally), Rhonchi (negative), Non-Labored Respirations, Accessory Resp Muscle Use (n) and Stridor (n)
GI: Soft, Non Distended and Non Tender
Neurology: Awake, Alert and No Motor Deficits
Skin: Warm, Dry, Good Color, Cyanosis (n), Jaundice (n) and Other (Clubbing seen)
Labs/Micro/Reports
Lab Data
11/21/23 05:06
11/21/23 05:06
--- NOTE | 2023-11-21 12:44 | CM ---
CM spoke with physician and per hospitalist patient not medically stable for authorization/transfer to SNF. CM will continue to follow for confirmation of plan to SNF and authorization when medically appropriate.
Plan; SNF when medically appropriate/ will need auth with [employer].
--- NOTE | 2023-11-21 17:12 | PTCARENOTE ---
Rec'd pt this am on 5L NC. In the afternoon pt required 8L NC. Upon transfer from chair to bed pt O2 sat dropped to 77%. required 15L to recover. Currently on 10L NC O2 sat 90%. all other VS stable today. OOB to chair. reports only MEADOWS, no other
complaints.
[2023-11-21] MEDS: LOVENOX 40 MG SC (17:14)
[2023-11-21] MEDS: MELATONIN 3 MG PO (20:37)
[2023-11-21] MEDS: ZETIA 10 MG PO (20:37)
[2023-11-21] MEDS: ZYRTEC 5 MG PO (20:38)
[2023-11-21] MEDS: FLOMAX 0.400000000000000022 MG PO (20:38)
[2023-11-21] MEDS: CRESTOR 40 MG PO (20:38)
--- NOTE | 2023-11-21 20:48 | PTCARENOTE ---
Pt received from day shift. Pt on 8L midflow. Pt satting 95%. Pt lung sounds coarse bilaterally at the bases. Pt AAO, can be forgetful at times. Pt pleasant and agreeable to care. Pt took HS pills well with water. Pts port flushes well, with blood
return. No acute changes thus far. See nursing shift report for full head to toe. call davis in reach.
[2023-11-22] VITALS (12 sets, daily range): BP systolic 98–123; BP diastolic 57–76; BMI 22.1
[2023-11-22 04:44] LABS: % Basophils 0.1 % (0-2); % Immature Granulocytes 0.4 % (0-0.5); % Lymphocytes 4.8 % (20.5-51.1); % Monocytes 6.6 % (1.7-9.3); % Neutrophils 88.1 % (42.2-75.2); Absolute Lymphocytes 0.4 10^3/uL (1.2-3.4); Absolute Monocytes 0.5 10^3/uL (0.1-0.6); Absolute Neutrophils 6.8 10^3/uL (1.4-6.5); Hematocrit 40.4 % (39.0-52.0); Hemoglobin 12.9 g/dL (13.0-18.0); Mean Corp Hgb Conc. 31.9 g/dL (33.0-37.0); Mean Platelet Volume 9.3 fL (7.4-10.4); Nucleated Red Blood Cells % 0 % (-); Platelet Count 141 10^3/uL (130-400); Red Cell Dist. Width 14.3 % (11.5-14.5); White Blood Cell Count 7.7 10^3/uL (4.8-10.8)
[2023-11-22 05:13] LABS: Blood Urea Nitrogen 43 mg/dl (9-20); Calcium 8.8 mg/dl (8.4-10.2); Carbon Dioxide 34 mmol/L (22-30); Chloride 96 mmol/L (98-107); Estimated Creatinine Clearance 65 ml/min; Glucose 129 mg/dl (70-99); Magnesium 2.1 mg/dl (1.6-2.3); Potassium 4.5 mmol/L (3.5-5.1); Sodium 135 mmol/L (135-145); eGFR > 60.00
[2023-11-22] MEDS: DUONEB 3 ML INH ×4 (07:57→18:17)
[2023-11-22] MEDS: ROBITUSSIN 200 MG PO ×4 (08:48→22:14)
[2023-11-22] MEDS: CELEBREX 100 MG PO (08:48)
[2023-11-22] MEDS: VITAMIN D3 (cholecalciferol) 50 MCG PO (08:49)
[2023-11-22] MEDS: ProAmatine 10 MG PO ×3 (08:49→17:24)
[2023-11-22] MEDS: FLORINEF 0.200000000000000011 MG PO (08:49)
[2023-11-22] MEDS: COLACE 100 MG PO (08:50)
[2023-11-22] MEDS: KCL 20 MEQ PO (08:50)
[2023-11-22] MEDS: SENOKOT 17.1999999999999993 MG PO (08:51)
[2023-11-22] MEDS: PROTONIX 40 MG PO (08:51)
[2023-11-22] MEDS: MAG-TAB SR 84 MG PO (08:51)
[2023-11-22] MEDS: MIRALAX 17 GRAMS PO (08:51)
[2023-11-22] MEDS: DECADRON 4 MG IV ×2 (08:52→20:23)
[2023-11-22] MEDS: REFRESH EYE DROPS (PF) 1 DROPS BOTH EYES ×2 (08:52→20:24)
[2023-11-22] MEDS: FLUSH (NSS) 1 FLUSH IV (08:55)
--- NOTE | 2023-11-22 13:52 | W.PN.HOSP.TC ---
Today's Communication/Plan
-
wean off o2 as possible
continue steroids
continue pulm toileting measure
Assessment / Plan
Assessment / Plan
# Acute on chronic hypoxic respiratory failure. Underlying pulmonary fibrosis on home oxygen. Bronchiectasis. Acute interstitial lung disease exacerbation.
Continue IV steroids and pulmonary recommended decrease doses of dexamethasone to 4 mg IV every 12 hours.
s/p Levaquin. Abx Dced per pulm. observe off abx. Procal negative.
Appreciated pulmonary consult and follow-up
Continue bronchodilators
Continue mucus clearance devices
Oxygen requirement worsening again on on 10 L through mid flow
# Syncope
Patient has a history of orthostatic hypotension
Non-[place] troponin elevation
PT recommends skilled rehab
# Hypokalemia-replaced

# Chronic orthostatic hypotension on midodrine and Florinef
# COVID-19 infection 1 month ago
# Stage IV colon cancer--recurrence from previous-completed chemotherapy November 2022
History of right hemicolectomy several years ago
Being followed by [facility]
# Idiopathic pulmonary fibrosis
# Hyperlipidemia-continue statin and Zetia
# Prostate disease-continue Flomax
# History of liver abscess with drainage
# Diabetes by history-hemoglobin A1c 5.5
# Dementia per history
# Infrarenal abdominal aortic aneurysm 3.2 cm
# Ambulatory dysfunction
# Ex-smoker quit 1968
DVT prophylaxis-Lovenox
DNR status per discussion with patient and daughter at bedside
Anticipated Discharge: > 48 hours
Subjective/Interval History
-
Date of Service: November 22, 2023
On mid flow 10 L/min
Fatigued/tired
Afebrile overnight
Objective Data
-
Labs:
Laboratory Results
11/22/23
04:20
WBC 7.7
Hgb 12.9 L
Hct 40.4
Plt Count 141
Sodium 135
Potassium 4.5
Chloride 96 L
Carbon Dioxide 34 H
BUN 43 H
Creatinine 0.8
Glucose 129 H
Calcium 8.8
Vital Signs:
Vital Signs
Temp Pulse Resp BP Pulse Ox
97.4 F 76 23 111/61 89
11/22/23 11:29 11/22/23 12:00 11/22/23 12:00 11/22/23 12:00 11/22/23 12:00
I&O
11/21/23 11/22/23 11/23/23
06:59 06:59 06:59
Intake Total 960 / 960 720 / 720 525 / 525
Output Total 1075 / 1075 775 / 775 570 / 570
Balance -115 / -115 -55 / -55 -45 / -45
Review of Systems
-
Respiratory: Reports Trouble Breathing; Denies Wheezing
Cardiac: Reports No Symptoms
Abdomen/GI: Reports No Symptoms
Physical Exam
-
General: No Apparent Distress
HEENT: Oxygen (Mid flow 10 L)
Respiratory: Negative Wheezes
Cardiac: Regular Rhythm and S1/S2; Negative Murmur
GI: Soft, Nontender and Nondistended
Neuro: Awake, Alert, Oriented and No Motor Deficits
Psych: Calm
--- NOTE | 2023-11-22 15:49 | W.PN.PUL3 ---
Today's Communication / Plan
-
Continue IV corticosteroids without change
Continue secretion clearance interventions
Wean down oxygen
Increase activity as able
Assessment
-
Patient is an 82-year-old male, with past history of ILD, chronic hypoxemia on baseline 2L NC following at [facility], HLD presented to the hospital after an episode of syncope. He was walking in his bedroom from the restroom when he passed out. Initial
head CT showing no acute findings. On arrival, he was notably hypoxemic with increased WOB, placed on HFNC. CT showing diffuse ILD, no comparative studies for eval of disease progression. We are consulted for eval.
Acute on chronic respiratory failure on midflow nasal cannula
Underlying pulm fibrosis on O2 2L as baseline with acute ILD exacerbation
Hypokalemia
Chronic hypercarbia, compensated 7.41/50
DNR
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
Orthostatic Hypotension
Colon Cancer, s/p R hemicolectomy
DM-II
Senile Dementia
Hypertension
Pulmonary Fibrosis
Not on antifibrotic meds
He follows with Dr Mendoza at [place] and told he has 25% lung function.
Chronic Hypoxemic Respiratory Failure, 2L at baseline, has needed up to 6L
Hepatic Abscess / Sepsis
BPH with LUTS
Infrarenal abdominal aortic aneurysm measuring 3.1 cm.
Ambulatory Dysfunction
Hearing loss
Former Smoker (Quit smoking in 1968)
Plan
Respiratory status very slowly improving continues to have difficulty expectorating
5 L nasal cannula. Wean down as able. Usually between 2-6 L at home
Aspiration precautions-speech therapy following
Continue with nebulizers
Decadron 4 mg every 12 hours-no change, will consider transition to prednisone tomorrow 11/23/2023.
Mucolytic's continue
Vest therapy-continue, he is benefiting from this.
Mucus mobilizing devices continue
CT chest 11/12/2023-personally reviewed-there are areas of bronchiectasis-hopefully this can qualify patient for vest therapy as an outpatient
Cultures reviewed
Repeat sputum culture-poor specimen
Observe off antibiotics
DVT prophylaxis-patient on Lovenox
GI prophylaxis-on pantoprazole
Stable for transfer out of IMU to telemetry from a pulmonary perspective
Long-term prognosis unfortunately quite poor-patient understands he has end-stage lung disease-not sure how much improvement we can accomplish
Patient usually follows with Dr Mendoza at [facility] --> patient no longer wants to follow with [facility] and wishes to transition to us.
Patient wishes to transition his pulmonary care to us at [facility]. Outpatient medical records will need to be obtained from [facility]-if vest therapy is considered I do believe some bronchiectasis is present on CT chest 10/2023
Diagnostic Data
CXR 11-16-2023-Persistent generalized bilateral interstitial prominence, and mild hazy opacity, raising the possibility of an airspace/acinar component. Relatively stable compared to prior examination. No pneumothorax. No radiographically
demonstrable pleural effusion. The cardiomediastinal margins are stable.
CXR 11/09/23- No acute cardiopulmonary process. Persistent severe bilateral interstitial fibrosis similar to previous exams.
CXR 12-20 c/w below, some interim clearing of bilateral patchy infiltrates
CXR 08-04-23, no comparison films, portable, bilateral fibrotic changes, patchy areas of infiltrates of unknown chronicity, mildly elevated R diaphragm. R chest port-A-cath
CT CHEST 11/12/23- No evidence of central pulmonary embolism. Findings with prominent bilateral chronic interstitial/fibrotic changes. Some groundglass opacification bilaterally, nonspecific, possibly representing some acute pulmonary edematous
changes.
CT HEAD 11/12/23- No acute intracranial abnormalities. Findings compatible with diffuse cortical atrophy with nonspecific white matter changes. Chronic bilateral maxillary sinus inflammatory changes.
CT abd/p c/IV 08-04-23
COMPARISON: 07/27/2023.
IMPRESSION: Stable examination. No new or acute abnormality within the abdomen or pelvis. Stable chronic interstitial fibrotic changes. Stable small low-attenuation hepatic structures. Stable Subtle density along the dependent margin could represent
sludge. No gallbladder wall thickening appreciated. No bile duct dilatation. Stable small low-attenuation pancreatic mass. Stable nonobstructing renal calculi. Stable bilateral renal cystic structures. Mild to moderate colonic fecal burden. No
evidence of bowel obstruction. No bowel wall thickening. Stable infrarenal abdominal aortic aneurysm measuring 3.1 cm.
Subjective Data
-
Date of Service:
Date of Service: November 22, 2023
Chief Complaint: Pulmonary Follow Up and Dyspnea Follow Up
Subjective:
Continues to have coughing and difficulty respiratory
Denies hemoptysis
Denies fevers or chills
Chronic shortness of breath
Review of Systems
Cardiopulmonary: Dyspnea, Dyspnea on Exertion, Cough and Chest Pain (n)
GI: Abdominal Pain (n)
Objective Data
Data Reviewed
Vital Signs / I&O / Oxygen:
Vital Signs
Temp Pulse Resp BP Pulse Ox
97.4 F 75 23 103/67 91
11/22/23 11:29 11/22/23 15:17 11/22/23 15:17 11/22/23 14:00 11/22/23 15:17
Intake and Output
11/21/23 11/22/23 11/23/23
06:59 06:59 06:59
Intake Total 960 / 960 720 / 720 765 / 765
Output Total 1075 / 1075 775 / 775 570 / 570
Balance -115 / -115 -55 / -55 195 / 195
SaO2 91
Nasal Cannula flow liters per 10
minute
Physical Exam
General: Respiratory Distress (n), Comfortable, Poor Appetite and Other (NAD, chronically ill appearing)
HEENT: Normocephalic, Anicteric and Moist Mucous Membranes
Cardiovascular: Regular Rhythm and Peripheral Edema (Negative)
Respiratory: Clear (Prolonged expiratory time and diminished breath sounds f), Wheeze (Forced expiratory), Crackles (Bilaterally), Rhonchi (negative), Non-Labored Respirations, Accessory Resp Muscle Use (n) and Stridor (n)
GI: Soft, Non Distended and Non Tender
Neurology: Awake, Alert and No Motor Deficits
Skin: Warm, Dry, Good Color, Cyanosis (n), Jaundice (n) and Other (Clubbing seen)
Labs/Micro/Reports
Lab Data
11/22/23 04:20
11/22/23 04:20
[2023-11-22] MEDS: LOVENOX 40 MG SC (17:23)
[2023-11-22] MEDS: MELATONIN 3 MG PO (20:24)
--- NOTE | 2023-11-22 21:19 | PTCARENOTE ---
Pt AAOX3, with no complaints at this time. Assessment care and vitals as charted.
[2023-11-22] MEDS: CRESTOR 40 MG PO (22:14)
[2023-11-22] MEDS: FLOMAX 0.400000000000000022 MG PO (22:14)
[2023-11-22] MEDS: ZETIA 10 MG PO (22:14)
[2023-11-22] MEDS: ZYRTEC 5 MG PO (22:14)
[2023-11-23] VITALS (14 sets, daily range): BP systolic 99–127; BP diastolic 60–74; PULSE 77–125; O2SAT 92; BMI 22.2
[2023-11-23] MEDS: DUONEB 3 ML INH ×4 (07:43→19:30)
[2023-11-23] MEDS: MIRALAX 17 GRAMS PO (08:19)
[2023-11-23] MEDS: ROBITUSSIN 200 MG PO ×4 (08:20→19:56)
[2023-11-23] MEDS: FLORINEF 0.200000000000000011 MG PO (08:20)
[2023-11-23] MEDS: CELEBREX 100 MG PO (08:20)
[2023-11-23] MEDS: VITAMIN D3 (cholecalciferol) 50 MCG PO (08:20)
[2023-11-23] MEDS: ProAmatine 10 MG PO ×3 (08:21→17:36)
[2023-11-23] MEDS: KCL 20 MEQ PO (08:21)
[2023-11-23] MEDS: PROTONIX 40 MG PO (08:22)
[2023-11-23] MEDS: DECADRON 4 MG IV (08:22)
[2023-11-23] MEDS: SENOKOT 17.1999999999999993 MG PO (08:22)
[2023-11-23] MEDS: MAG-TAB SR 84 MG PO (08:22)
[2023-11-23] MEDS: REFRESH EYE DROPS (PF) 1 DROPS BOTH EYES ×2 (08:22→19:56)
[2023-11-23] MEDS: COLACE 100 MG PO (08:23)
--- NOTE | 2023-11-23 09:23 | W.PN.HOSP.TC ---
Today's Communication/Plan
-
continue steroids
continue pulm toileting measure
wean off o2 as possible
Assessment / Plan
Assessment / Plan
# Acute on chronic hypoxic respiratory failure. Underlying pulmonary fibrosis on home oxygen. Bronchiectasis. Acute interstitial lung disease exacerbation.
Continue IV steroids and pulmonary recommended decrease doses of dexamethasone to 4 mg IV every 12 hours.
s/p Levaquin. Abx Dced per pulm. observe off abx. Procal negative.
Appreciated pulmonary consult and follow-up
Continue bronchodilators
Continue mucus clearance devices
Oxygen requirement down again to 5 L through mid flow. Continue weaning off as possible.
# Syncope
Patient has a history of orthostatic hypotension
Non-[place] troponin elevation
PT recommends skilled rehab
# Hypokalemia-replaced
Chronic orthostatic hypotension on midodrine and Florinef
COVID-19 infection 1 month ago
Stage IV colon cancer--recurrence from previous-completed chemotherapy November 2022
History of right hemicolectomy several years ago - Being followed by [facility] oncology
Idiopathic pulmonary fibrosis
Hyperlipidemia-continue statin and Zetia
Prostate disease-continue Flomax
History of liver abscess with drainage
Diabetes by history-hemoglobin A1c 5.5
Dementia per history
Infrarenal abdominal aortic aneurysm 3.2 cm
Ambulatory dysfunction
Ex-smoker quit 1968
DVT prophylaxis-Lovenox
DNR status per discussion with patient and daughter at bedside
4/6 daughter updated about care plan and prognosis. All questions answered.
Anticipated Discharge: > 48 hours
Subjective/Interval History
-
Date of Service: November 23, 2023
Oxygen requirement is coming down, patient on 5L o2 through midflow
No other acute issues overnight
Objective Data
-
Vital Signs:
Vital Signs
Temp Pulse Resp BP Pulse Ox
97.7 F 80 22 111/65 94
11/23/23 07:23 11/23/23 08:21 11/23/23 07:48 11/23/23 08:21 11/23/23 07:48
I&O
11/22/23 11/23/23 11/24/23
06:59 06:59 06:59
Intake Total 720 / 720 975 / 975
Output Total 775 / 775 1170 / 1170 200 / 200
Balance -55 / -55 -195 / -195 -200 / -200
Review of Systems
-
Respiratory: Reports Cough and Trouble Breathing
Cardiac: Reports No Symptoms
Abdomen/GI: Reports No Symptoms
Physical Exam
-
General: No Apparent Distress, Appears Chronically Ill and Cachectic
HEENT: Oxygen (Mid flow 5L)
Respiratory: Rhonchi; Negative Wheezes
Cardiac: Regular Rhythm and S1/S2; Negative Murmur
GI: Soft, Nontender and Nondistended
Neuro: Awake, Alert, Oriented and No Motor Deficits
Psych: Calm
--- NOTE | 2023-11-23 14:52 | W.PN.PUL3 ---
Today's Communication / Plan
-
Transition to prednisone 40 mg
Continue secretion clearance intervention
Continue oxygen supplementation
Hopeful discharge planning in the next 24 hours
Assessment
-
Patient is an 82-year-old male, with past history of ILD, chronic hypoxemia on baseline 2L NC following at [facility], HLD presented to the hospital after an episode of syncope. He was walking in his bedroom from the restroom when he passed out. Initial
head CT showing no acute findings. On arrival, he was notably hypoxemic with increased WOB, placed on HFNC. CT showing diffuse ILD, no comparative studies for eval of disease progression. We are consulted for eval.
Acute on chronic respiratory failure on midflow nasal cannula
Underlying pulm fibrosis on O2 2L as baseline with acute ILD exacerbation
Hypokalemia
Chronic hypercarbia, compensated 7.41/50
DNR
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
Orthostatic Hypotension
Colon Cancer, s/p R hemicolectomy
DM-II
Senile Dementia
Hypertension
Pulmonary Fibrosis
Not on antifibrotic meds
He follows with Dr Mendoza at [place] and told he has 25% lung function.
Chronic Hypoxemic Respiratory Failure, 2L at baseline, has needed up to 6L
Hepatic Abscess / Sepsis
BPH with LUTS
Infrarenal abdominal aortic aneurysm measuring 3.1 cm.
Ambulatory Dysfunction
Hearing loss
Former Smoker (Quit smoking in 1968)
Plan
Improving from the respiratory status.
Patient feels better. Asking when to go home.
5 L nasal cannula. Wean down as able. Usually between 2-6 L at home
Aspiration precautions-speech therapy following
Continue with nebulizers
Transition to prednisone 40 mg, decrease by 10 mg every 5 days to off.
Mucolytic's continue
Vest therapy-continue, he is benefiting from this.(Will need to discuss with director of casework department on Friday whether this is possible at [facility])
CT chest 11/12/2023-personally reviewed-there are areas of bronchiectasis-hopefully this can qualify patient for vest therapy as an outpatient
Cultures reviewed
Repeat sputum culture-poor specimen
Observe off antibiotics
DVT prophylaxis-patient on Lovenox
GI prophylaxis-on pantoprazole
Long-term prognosis unfortunately quite poor-patient understands he has end-stage lung disease-not sure how much improvement we can accomplish
Patient usually follows with Dr Mendoza at [facility] --> patient no longer wants to follow with [facility] and wishes to transition to us.
Patient wishes to transition his pulmonary care to us at [facility]. Outpatient medical records will need to be obtained from [facility]-if vest therapy is considered I do believe some bronchiectasis is present on CT chest 10/2023
-
Hopefully discharge planning in the next 24 hours
Will follow-up

Diagnostic Data
CXR 11-16-2023-Persistent generalized bilateral interstitial prominence, and mild hazy opacity, raising the possibility of an airspace/acinar component. Relatively stable compared to prior examination. No pneumothorax. No radiographically
demonstrable pleural effusion. The cardiomediastinal margins are stable.
CXR 11/09/23- No acute cardiopulmonary process. Persistent severe bilateral interstitial fibrosis similar to previous exams.
CXR 12-20 c/w below, some interim clearing of bilateral patchy infiltrates
CXR 12--23, no comparison films, portable, bilateral fibrotic changes, patchy areas of infiltrates of unknown chronicity, mildly elevated R diaphragm. R chest port-A-cath
CT CHEST 11/12/23- No evidence of central pulmonary embolism. Findings with prominent bilateral chronic interstitial/fibrotic changes. Some groundglass opacification bilaterally, nonspecific, possibly representing some acute pulmonary edematous
changes.
CT HEAD 11/12/23- No acute intracranial abnormalities. Findings compatible with diffuse cortical atrophy with nonspecific white matter changes. Chronic bilateral maxillary sinus inflammatory changes.
CT abd/p c/IV 08-04-23
COMPARISON: 07/27/2023.
IMPRESSION: Stable examination. No new or acute abnormality within the abdomen or pelvis. Stable chronic interstitial fibrotic changes. Stable small low-attenuation hepatic structures. Stable Subtle density along the dependent margin could represent
sludge. No gallbladder wall thickening appreciated. No bile duct dilatation. Stable small low-attenuation pancreatic mass. Stable nonobstructing renal calculi. Stable bilateral renal cystic structures. Mild to moderate colonic fecal burden. No
evidence of bowel obstruction. No bowel wall thickening. Stable infrarenal abdominal aortic aneurysm measuring 3.1 cm.
Subjective Data
-
Date of Service:
Date of Service: November 23, 2023
Chief Complaint: Pulmonary Follow Up and Dyspnea Follow Up
Subjective:
Patient feels better.
Currently on 5 L supplemental oxygen
Feels better with vest therapy, clearing thin phlegm
Denies hemoptysis
Review of Systems
General: Fever (n)
Cardiopulmonary: Dyspnea (none at rest), Dyspnea on Exertion, Cough and Sputum Production
GI: Abdominal Pain (n)
Neuro: Headache (n)
Objective Data
Data Reviewed
Vital Signs / I&O / Oxygen:
Vital Signs
Temp Pulse Resp BP Pulse Ox
97.8 F 84 24 120/74 94
11/23/23 11:55 11/23/23 13:31 11/23/23 11:04 11/23/23 13:31 11/23/23 11:04
Intake and Output
11/22/23 11/23/23 11/24/23
06:59 06:59 06:59
Intake Total 720 / 720 975 / 975
Output Total 775 / 775 1170 / 1170 300 / 300
Balance -55 / -55 -195 / -195 -300 / -300
SaO2 94
Nasal Cannula flow liters per 5
minute
Physical Exam
General: Respiratory Distress (n), Comfortable, Poor Appetite and Other (NAD, chronically ill appearing)
HEENT: Normocephalic, Anicteric and Moist Mucous Membranes
Cardiovascular: Regular Rhythm and Peripheral Edema (Negative)
Respiratory: Clear (Prolonged expiratory time and diminished breath sounds f), Wheeze (Forced expiratory), Crackles (Bilaterally), Rhonchi (negative), Non-Labored Respirations, Accessory Resp Muscle Use (n) and Stridor (n)
GI: Soft, Non Distended and Non Tender
Neurology: Awake, Alert and No Motor Deficits
Skin: Warm, Dry, Good Color, Cyanosis (n), Jaundice (n) and Other (Clubbing seen)
Labs/Micro/Reports
Lab Data
11/22/23 04:20
11/22/23 04:20
[2023-11-23] MEDS: LOVENOX 40 MG SC (17:37)
[2023-11-23] MEDS: CRESTOR 40 MG PO (19:56)
[2023-11-23] MEDS: ZETIA 10 MG PO (19:56)
[2023-11-23] MEDS: FLOMAX 0.400000000000000022 MG PO (19:56)
[2023-11-23] MEDS: MELATONIN 3 MG PO (19:56)
[2023-11-23] MEDS: ZYRTEC 5 MG PO (19:56)
[2023-11-24] VITALS (11 sets, daily range): BP systolic 101–119; BP diastolic 61–82; PULSE 66; O2SAT 96
[2023-11-24 05:42] LABS: Hemoglobin 12.8 g/dL (13.0-18.0); Mean Corp Hgb Conc. 32.8 g/dL (33.0-37.0); Mean Corpuscular Hgb 30.8 pg (27.0-31.0); Mean Platelet Volume 9.5 fL (7.4-10.4); Platelet Count 126 10^3/uL (130-400); Red Blood Cell Count 4.15 10^6/uL (4.70-6.10); Red Cell Dist. Width 14.6 % (11.5-14.5); White Blood Cell Count 10.1 10^3/uL (4.8-10.8)
[2023-11-24 06:07] LABS: Blood Urea Nitrogen 37 mg/dl (9-20); Calcium 8.5 mg/dl (8.4-10.2); Carbon Dioxide 30 mmol/L (22-30); Chloride 102 mmol/L (98-107); Estimated Creatinine Clearance 74 ml/min; Glucose 106 mg/dl (70-99); Potassium 4.2 mmol/L (3.5-5.1); Sodium 134 mmol/L (135-145); eGFR > 60.00
--- NOTE | 2023-11-24 06:08 | PTCARENOTE ---
no acute events overnight, pt remains of 5L NC.
[2023-11-24] MEDS: DUONEB 3 ML INH ×4 (07:52→19:43)
[2023-11-24] MEDS: MIRALAX 17 GRAMS PO (07:56)
[2023-11-24] MEDS: ProAmatine 10 MG PO ×3 (07:57→17:30)
[2023-11-24] MEDS: FLORINEF 0.200000000000000011 MG PO (07:58)
[2023-11-24] MEDS: CELEBREX 100 MG PO (07:58)
[2023-11-24] MEDS: REFRESH EYE DROPS (PF) 1 DROPS BOTH EYES ×2 (07:59→20:17)
[2023-11-24] MEDS: ROBITUSSIN 200 MG PO ×4 (07:59→20:17)
[2023-11-24] MEDS: DELTASONE 40 MG PO (07:59)
[2023-11-24] MEDS: MAG-TAB SR 84 MG PO (08:00)
[2023-11-24] MEDS: KCL 20 MEQ PO (08:00)
[2023-11-24] MEDS: VITAMIN D3 (cholecalciferol) 50 MCG PO (08:00)
[2023-11-24] MEDS: PROTONIX 40 MG PO (08:00)
[2023-11-24] MEDS: COLACE 100 MG PO (08:01)
[2023-11-24] MEDS: SENOKOT 17.1999999999999993 MG PO (08:02)
--- NOTE | 2023-11-24 08:58 | W.PN.HOSP.TC ---
Today's Communication/Plan
-
Discharge
Assessment / Plan
Assessment / Plan
CVS: S1-S2 normal
Chest:rales
Abdomen: Soft, NT / Bowel sounds present
Extremities: No edema, normal pulses
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
# Acute on chronic hypoxic respiratory failure. Underlying pulmonary fibrosis on home oxygen. Bronchiectasis. Acute interstitial lung disease exacerbation.
Continue Steroid taper
s/p Levaquin. Abx Dced per pulm. observe off abx. Procal negative.
Continue bronchodilators
Continue mucus clearance devices
Oxygen requirement down again to 5 L through mid flow. Continue weaning off as possible.
# Syncope
Patient has a history of orthostatic hypotension
Non-[place] troponin elevation
PT recommends skilled rehab
# Hypokalemia-replaced
Chronic orthostatic hypotension on midodrine and Florinef
COVID-19 infection 1 month ago
Stage IV colon cancer--recurrence from previous-completed chemotherapy November 2022
History of right hemicolectomy several years ago - Being followed by [place] oncology
Idiopathic pulmonary fibrosis
Hyperlipidemia-continue statin and Zetia
Prostate disease-continue Flomax
History of liver abscess with drainage
Diabetes by history-hemoglobin A1c 5.5
Dementia per history
Infrarenal abdominal aortic aneurysm 3.2 cm
Ambulatory dysfunction
Ex-smoker quit 1968
DVT prophylaxis-Lovenox
DNR status per discussion with patient and daughter at bedside
D/W RN at bed side
D/W Pulm
D/W Case management
Anticipated Discharge: Today
Subjective/Interval History
-
Date of Service: November 24, 2023
Objective Data
-
Labs:
Laboratory Results
11/24/23
05:32
WBC 10.1
Hgb 12.8 L
Hct 39.0
Plt Count 126 L
Sodium 134 L
Potassium 4.2
Chloride 102
Carbon Dioxide 30
BUN 37 H
Creatinine 0.7
Glucose 106 H
Calcium 8.5
Vital Signs:
Vital Signs
Temp Pulse Resp BP Pulse Ox
98.5 F 140 24 112/68 95
11/24/23 07:30 11/24/23 08:00 11/24/23 08:00 11/24/23 07:57 11/24/23 08:18
I&O
11/23/23 11/24/23 11/25/23
06:59 06:59 06:59
Intake Total 975 / 975 125 / 125 250 / 250
Output Total 1170 / 1170 825 / 825 150 / 150
Balance -195 / -195 -700 / -700 100 / 100
--- NOTE | 2023-11-24 09:49 | W.PN.PUL3 ---
Today's Communication / Plan
-
Wean O2 as tolerated, remains on 5L
PT/OT, IS/acapella, can change vest to manual PT for rehab
Prednisone taper at discharge
Outpatient pulmonary FU recommended
Discharge planning per team, CM following for placement
Assessment
-
Patient is an 82-year-old male, with past history of ILD, chronic hypoxemia on baseline 2L NC following at [facility], Tao presented to the hospital after an episode of syncope. He was walking in his bedroom from the restroom when he passed out. Initial
head CT showing no acute findings. On arrival, he was notably hypoxemic with increased WOB, placed on HFNC. CT showing diffuse ILD, no comparative studies for eval of disease progression. We are consulted for eval.
Acute on chronic respiratory failure on midflow nasal cannula
Underlying pulm fibrosis on O2 2L as baseline with acute ILD exacerbation
Hypokalemia
Chronic hypercarbia, compensated 7.41/50
DNR
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
Orthostatic Hypotension
Colon Cancer, s/p R hemicolectomy
DM-II
Senile Dementia
Hypertension
Pulmonary Fibrosis
Not on antifibrotic meds
He follows with Dr Mendoza at [place] and told he has 25% lung function.
Chronic Hypoxemic Respiratory Failure, 2L at baseline, has needed up to 6L
Hepatic Abscess / Sepsis
BPH with LUTS
Infrarenal abdominal aortic aneurysm measuring 3.1 cm.
Ambulatory Dysfunction
Hearing loss
Former Smoker (Quit smoking in 1968)
Plan
Improving from the respiratory status.
Patient feels better. Asking when to go home.
5 L nasal cannula. Wean down as able. Usually between 2-6 L at home
Aspiration precautions-speech therapy following
Continue with nebulizers
Transition to prednisone 40 mg, decrease by 10 mg every 5 days to off.
Slow taper at discharge
Mucolytic's continue
Vest therapy-continue, he is benefiting from this.
Will need to discuss with case preparer and liner on Friday whether this is possible at [facility]--can be changed to manual PT
Continue IS/Acapella
CT chest 11/12/2023-personally reviewed-there are areas of bronchiectasis-hopefully this can qualify patient for vest therapy as an outpatient
Cultures reviewed
Repeat sputum culture-poor specimen
Can repeat sputum culture if able today
Observe off antibiotics
DVT prophylaxis-patient on Lovenox
GI prophylaxis-on pantoprazole
Long-term prognosis unfortunately quite poor-patient understands he has end-stage lung disease-not sure how much improvement we can accomplish
Patient usually follows with Dr Mendoza at [facility] --> patient no longer wants to follow with [facility] and wishes to transition to us.
Patient wishes to transition his pulmonary care to us at [facility].
Outpatient medical records will need to be obtained from [facility]-if vest therapy is considered I do believe some bronchiectasis is present on CT chest 10/2023
Hopefully discharge planning in the next 24 hours
Diagnostic Data
CXR 11-16-2023-Persistent generalized bilateral interstitial prominence, and mild hazy opacity, raising the possibility of an airspace/acinar component. Relatively stable compared to prior examination. No pneumothorax. No radiographically
demonstrable pleural effusion. The cardiomediastinal margins are stable.
CXR 11/09/23- No acute cardiopulmonary process. Persistent severe bilateral interstitial fibrosis similar to previous exams.
CXR 12-20 c/w below, some interim clearing of bilateral patchy infiltrates
CXR 12-18-23, no comparison films, portable, bilateral fibrotic changes, patchy areas of infiltrates of unknown chronicity, mildly elevated R diaphragm. R chest port-A-cath
CT CHEST 11/12/23- No evidence of central pulmonary embolism. Findings with prominent bilateral chronic interstitial/fibrotic changes. Some groundglass opacification bilaterally, nonspecific, possibly representing some acute pulmonary edematous
changes.
CT HEAD 11/12/23- No acute intracranial abnormalities. Findings compatible with diffuse cortical atrophy with nonspecific white matter changes. Chronic bilateral maxillary sinus inflammatory changes.
CT abd/p c/IV 08-04-23
COMPARISON: 07/27/2023.
IMPRESSION: Stable examination. No new or acute abnormality within the abdomen or pelvis. Stable chronic interstitial fibrotic changes. Stable small low-attenuation hepatic structures. Stable Subtle density along the dependent margin could represent
sludge. No gallbladder wall thickening appreciated. No bile duct dilatation. Stable small low-attenuation pancreatic mass. Stable nonobstructing renal calculi. Stable bilateral renal cystic structures. Mild to moderate colonic fecal burden. No
evidence of bowel obstruction. No bowel wall thickening. Stable infrarenal abdominal aortic aneurysm measuring 3.1 cm.
Subjective Data
-
Date of Service:
Date of Service: November 24, 2023
Chief Complaint: Pulmonary Follow Up and Dyspnea Follow Up
Subjective:
Remains on 5L NC, desats at times with minimal activity
Profoundly weak still
Offers no new complaints
Objective Data
Data Reviewed
Vital Signs / I&O / Oxygen:
Vital Signs
Temp Pulse Resp BP Pulse Ox
98.5 F 140 24 112/68 95
11/24/23 07:30 11/24/23 08:00 11/24/23 08:00 11/24/23 07:57 11/24/23 08:18
Intake and Output
11/23/23 11/24/23 11/25/23
06:59 06:59 06:59
Intake Total 975 / 975 125 / 125 250 / 250
Output Total 1170 / 1170 825 / 825 150 / 150
Balance -195 / -195 -700 / -700 100 / 100
SaO2 95
Nasal Cannula flow liters per 5
minute
Physical Exam
General: Respiratory Distress (n), Comfortable, Poor Appetite and Other (NAD, chronically ill appearing)
HEENT: Normocephalic, Anicteric and Moist Mucous Membranes
Cardiovascular: S1-S2, Regular Rhythm and Peripheral Edema (Negative)
Respiratory: Wheeze (Forced expiratory), Crackles (Bilaterally), Rhonchi (negative), Non-Labored Respirations, Accessory Resp Muscle Use (n), Stridor (n) and Other (Prolonged expiratory time and diminished breath sounds )
GI: Soft, Non Distended and Non Tender
Neurology: Awake, Alert, No Motor Deficits and Other (confused at times, profoundly weak)
Skin: Warm, Dry, Good Color, Cyanosis (n), Jaundice (n) and Other (Clubbing seen)
Labs/Micro/Reports
Lab Data
11/24/23 05:32
11/24/23 05:32
--- NOTE | 2023-11-24 12:12 | CM ---
Patient who resides at [facility] with Dx Syncope, Acute on chronic hypoxic respiratory failure. O2 5L midflow. PT & OT recommend skilled rehab.
Spoke with [facility]; they would like the principal technical specialist to see the patient. Their concern is that the patient desatted yesterday down to 88% when working with PT . They requested updated clinical and discussed with their senior administrator support.
They cannot do vest therapy at their SNF---> Dr Chanel made aware, she will see the patient today to evaluate.
Referral initiated with Lucreita via [employer] - Reference Number [id number]. Clinical sent via Active Fax.
Plan [facility] SN[facility] when insurance auth obtained and medically ready.
[2023-11-24] MEDS: LOVENOX 40 MG SC (17:30)
[2023-11-24] MEDS: MELATONIN 3 MG PO (20:17)
[2023-11-24] MEDS: CRESTOR 40 MG PO (20:17)
[2023-11-24] MEDS: FLOMAX 0.400000000000000022 MG PO (20:17)
[2023-11-24] MEDS: ZETIA 10 MG PO (20:17)
[2023-11-24] MEDS: ZYRTEC 5 MG PO (20:17)
[2023-11-25] VITALS (14 sets, daily range): BP systolic 102–140; BP diastolic 66–88; PULSE 67; O2SAT 98
[2023-11-25 05:29] LABS: Hematocrit 37.5 % (39.0-52.0); Hemoglobin 12.3 g/dL (13.0-18.0); Mean Corp Hgb Conc. 32.8 g/dL (33.0-37.0); Mean Corpuscular Hgb 30.8 pg (27.0-31.0); Mean Platelet Volume 9.3 fL (7.4-10.4); Platelet Count 121 10^3/uL (130-400); Red Blood Cell Count 3.99 10^6/uL (4.70-6.10); Red Cell Dist. Width 14.4 % (11.5-14.5); White Blood Cell Count 8.7 10^3/uL (4.8-10.8)
[2023-11-25 06:02] LABS: Blood Urea Nitrogen 36 mg/dl (9-20); Calcium 8.6 mg/dl (8.4-10.2); Carbon Dioxide 33 mmol/L (22-30); Chloride 99 mmol/L (98-107); Estimated Creatinine Clearance 74 ml/min; Glucose 102 mg/dl (70-99); Potassium 4.1 mmol/L (3.5-5.1); Sodium 136 mmol/L (135-145); eGFR > 60.00
[2023-11-25] MEDS: PROTONIX 40 MG PO (07:58)
[2023-11-25] MEDS: KCL 20 MEQ PO (07:58)
[2023-11-25] MEDS: VITAMIN D3 (cholecalciferol) 50 MCG PO (07:58)
[2023-11-25] MEDS: MIRALAX 17 GRAMS PO (07:59)
[2023-11-25] MEDS: COLACE 100 MG PO (07:59)
[2023-11-25] MEDS: CELEBREX 100 MG PO (07:59)
[2023-11-25] MEDS: FLORINEF 0.200000000000000011 MG PO (07:59)
[2023-11-25] MEDS: MAG-TAB SR 84 MG PO (07:59)
[2023-11-25] MEDS: DELTASONE 40 MG PO (07:59)
[2023-11-25] MEDS: SENOKOT 17.1999999999999993 MG PO (07:59)
[2023-11-25] MEDS: ROBITUSSIN 200 MG PO ×4 (07:59→20:29)
[2023-11-25] MEDS: ProAmatine 10 MG PO ×3 (07:59→18:10)
[2023-11-25] MEDS: REFRESH EYE DROPS (PF) 1 DROPS BOTH EYES ×2 (08:00→20:28)
[2023-11-25] MEDS: DUONEB 3 ML INH ×4 (08:23→19:59)
--- NOTE | 2023-11-25 09:16 | W.PN.PUL3 ---
Today's Communication / Plan
-
Weaned to 3L NC, continue as tolerated, slow progress
IS/PT continued
Changed vest to manual PT PRN--can continue at rehab
Prednisone taper
Discharge planning per team
Assessment
-
Patient is an 82-year-old male, with past history of ILD, chronic hypoxemia on baseline 2L NC following at [facility], HLD presented to the hospital after an episode of syncope. He was walking in his bedroom from the restroom when he passed out. Initial
head CT showing no acute findings. On arrival, he was notably hypoxemic with increased WOB, placed on HFNC. CT showing diffuse ILD, no comparative studies for eval of disease progression. We are consulted for eval.
Acute on chronic respiratory failure on midflow nasal cannula
Underlying pulm fibrosis on O2 2L as baseline with acute ILD exacerbation
Hypokalemia
Chronic hypercarbia, compensated 7.41/50
DNR
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
Orthostatic Hypotension
Colon Cancer, s/p R hemicolectomy
DM-II
Senile Dementia
Hypertension
Pulmonary Fibrosis
Not on antifibrotic meds
He follows with Dr Mendoza at [place] and told he has 25% lung function.
Chronic Hypoxemic Respiratory Failure, 2L at baseline, has needed up to 6L
Hepatic Abscess / Sepsis
BPH with LUTS
Infrarenal abdominal aortic aneurysm measuring 3.1 cm.
Ambulatory Dysfunction
Hearing loss
Former Smoker (Quit smoking in 1968)
Plan
Improving from the respiratory status.
Patient feels better. Asking when to go home.
Weaned to 3 L nasal cannula. He still feels SOB, sats borderline at 3L 89-91%
Wean down as able. Usually between 2-6 L at home
Aspiration precautions-speech therapy following
Continue with nebulizers
Transition to prednisone 40 mg, decrease by 10 mg every 5 days to off.
Slow taper at discharge
Mucolytic's continue
Vest therapy-continue, he is benefiting from this.
Will need to discuss with sample case porter on Friday whether this is possible at [facility]--can be changed to manual PT
Continue IS/Acapella
CT chest 11/12/2023-personally reviewed-there are areas of bronchiectasis-hopefully this can qualify patient for vest therapy as an outpatient
Cultures reviewed
Repeat sputum culture-poor specimen
Can repeat sputum culture if able today
Observe off antibiotics
DVT prophylaxis-patient on Lovenox
GI prophylaxis-on pantoprazole
Long-term prognosis unfortunately quite poor-patient understands he has end-stage lung disease-not sure how much improvement we can accomplish
Patient usually follows with Dr Mendoza at [facility] --> patient no longer wants to follow with [facility] and wishes to transition to us.
Patient wishes to transition his pulmonary care to us at [facility].
Outpatient medical records will need to be obtained from [facility]-if vest therapy is considered I do believe some bronchiectasis is present on CT chest 10/2023
Hopefully discharge planning in the next 24 hours
Diagnostic Data
CXR 11-16-2023-Persistent generalized bilateral interstitial prominence, and mild hazy opacity, raising the possibility of an airspace/acinar component. Relatively stable compared to prior examination. No pneumothorax. No radiographically
demonstrable pleural effusion. The cardiomediastinal margins are stable.
CXR 11/09/23- No acute cardiopulmonary process. Persistent severe bilateral interstitial fibrosis similar to previous exams.
CXR 12-20 c/w below, some interim clearing of bilateral patchy infiltrates
CXR 12--23, no comparison films, portable, bilateral fibrotic changes, patchy areas of infiltrates of unknown chronicity, mildly elevated R diaphragm. R chest port-A-cath
CT CHEST 11/12/23- No evidence of central pulmonary embolism. Findings with prominent bilateral chronic interstitial/fibrotic changes. Some groundglass opacification bilaterally, nonspecific, possibly representing some acute pulmonary edematous
changes.
CT HEAD 11/12/23- No acute intracranial abnormalities. Findings compatible with diffuse cortical atrophy with nonspecific white matter changes. Chronic bilateral maxillary sinus inflammatory changes.
CT abd/p c/IV 08-04-23
COMPARISON: 07/27/2023.
IMPRESSION: Stable examination. No new or acute abnormality within the abdomen or pelvis. Stable chronic interstitial fibrotic changes. Stable small low-attenuation hepatic structures. Stable Subtle density along the dependent margin could represent
sludge. No gallbladder wall thickening appreciated. No bile duct dilatation. Stable small low-attenuation pancreatic mass. Stable nonobstructing renal calculi. Stable bilateral renal cystic structures. Mild to moderate colonic fecal burden. No
evidence of bowel obstruction. No bowel wall thickening. Stable infrarenal abdominal aortic aneurysm measuring 3.1 cm.
Subjective Data
-
Date of Service:
Date of Service: November 25, 2023
Chief Complaint: Pulmonary Follow Up and Dyspnea Follow Up
Subjective:
no new complaints
still SOB
Objective Data
Data Reviewed
Vital Signs / I&O / Oxygen:
Vital Signs
Temp Pulse Resp BP Pulse Ox
98.3 F 67 26 125/74 94
11/25/23 04:21 11/25/23 08:26 11/25/23 08:26 11/25/23 07:59 11/25/23 08:26
Intake and Output
11/24/23 11/25/23 11/26/23
06:59 06:59 06:59
Intake Total 125 / 125 250 / 250
Output Total 825 / 825 775 / 775
Balance -700 / -700 -525 / -525
SaO2 94
Nasal Cannula flow liters per 3
minute
Physical Exam
General: Respiratory Distress (n), Comfortable, Poor Appetite and Other (NAD, chronically ill appearing)
HEENT: Normocephalic, Anicteric and Moist Mucous Membranes
Cardiovascular: S1-S2, Regular Rhythm and Peripheral Edema (Negative)
Respiratory: Wheeze (Forced expiratory), Crackles (Bilaterally), Rhonchi (negative), Non-Labored Respirations, Accessory Resp Muscle Use (n), Stridor (n) and Other (Prolonged expiratory time and diminished breath sounds )
GI: Soft, Non Distended and Non Tender
Neurology: Awake, Alert, No Motor Deficits and Other (confused at times, profoundly weak)
Skin: Warm, Dry, Good Color, Cyanosis (n), Jaundice (n) and Other (Clubbing seen)
Labs/Micro/Reports
Lab Data
11/25/23 04:48
11/25/23 04:48
--- NOTE | 2023-11-25 09:22 | W.PN.HOSP.TC ---
Today's Communication/Plan
-
Medically stable for discharge
D/W Case management
Assessment / Plan
Assessment / Plan
CVS: S1-S2 normal
Chest:rales, B/L
Abdomen: Soft, NT / Bowel sounds present
Extremities: No edema, normal pulses
CONTRACT SPECIALIST: Non focal exam
# Acute on chronic hypoxic respiratory failure. Underlying pulmonary fibrosis on home oxygen. Bronchiectasis. Acute interstitial lung disease exacerbation.
Continue Steroid taper
s/p Levaquin. Abx Dced per pulm. observe off abx. Procal negative.
Continue bronchodilators
Continue mucus clearance devices
Oxygen requirement down again to 3 L .
# Syncope
Patient has a history of orthostatic hypotension
Non-[place] troponin elevation
PT recommends skilled rehab
# Hypokalemia-replaced
Chronic orthostatic hypotension on midodrine and Florinef
COVID-19 infection 1 month ago
Stage IV colon cancer--recurrence from previous-completed chemotherapy November 2022
History of right hemicolectomy several years ago - Being followed by [facility]
Idiopathic pulmonary fibrosis
Hyperlipidemia-continue statin and Zetia
Prostate disease-continue Flomax
History of liver abscess with drainage
Diabetes by history-hemoglobin A1c 5.5
Dementia per history
Infrarenal abdominal aortic aneurysm 3.2 cm
Ambulatory dysfunction
Ex-smoker quit 1968
DVT prophylaxis-Lovenox
DNR status per discussion with patient and daughter at bedside
D/W RN at bed side
D/W Pulm
D/W Case management
Spoke to patient's daughter Farhana and updated regarding patient's condition. We discussed that he may set a new baseline with COVID infection and also with his pulmonary fibrosis. Patient may use increased amount of oxygen for ambulation.
Anticipated Discharge: Today
Subjective/Interval History
-
Date of Service: November 25, 2023
Objective Data
-
Labs:
Laboratory Results
11/25/23 11/25/23
04:21 04:48
WBC 8.7
Hgb 12.3 L
Hct 37.5 L
Plt Count 121 L
Sodium Cancelled 136
Potassium Cancelled 4.1
Chloride Cancelled 99
Carbon Dioxide Cancelled 33 H
BUN Cancelled 36 H
Creatinine Cancelled 0.7
Glucose Cancelled 102 H
Calcium Cancelled 8.6
Vital Signs:
Vital Signs
Temp Pulse Resp BP Pulse Ox
98.3 F 67 26 125/74 94
11/25/23 04:21 11/25/23 08:26 11/25/23 08:26 11/25/23 07:59 11/25/23 08:26
I&O
11/24/23 11/25/23 11/26/23
06:59 06:59 06:59
Intake Total 125 / 125 250 / 250
Output Total 825 / 825 775 / 775
Balance -700 / -700 -525 / -525
--- NOTE | 2023-11-25 09:49 | PTCARENOTE ---
Addendum entered by William Choi RN 11/25/23 19:16:
Patient called me to room and stated he is very depressed. He asked me 'how can I pull the plug? How can this all be over? How do I quickly?' We talked about hospice/comfort care and he said he isn't interested in any of that yet. When asked if
he is suicidal and/or thinking about killing himself he said 'No, Just sad this has to drag on for my family to deal with.' Emotional support provided. notified of this conversation.
Original Note:
Patient AAOx3, hopeful for DC today. No complaints. On 3L NC, sats 93%. Crackles heard at bases, left base more than right base. Denies SOB. VSS. Continuing to closely monitor.
--- NOTE | 2023-11-25 15:09 | CM ---
CM reviewed pt with Dr Linares- ready for dc today
Outreach to [employer] 2x throughout day- referral pending
[employer] noting they have not received clinicals during both calls
Clinicals faxed twice to [phone] and fax confirmations received
SNF auth request emailed to Lucretia llanos
Awaiting response
Bedside update with pt
Update to [facility] home admissions
Discharge Disposition- [facility] pending [employer] auth
[2023-11-25] MEDS: LOVENOX 40 MG SC (18:11)
--- NOTE | 2023-11-25 20:16 | PTCARENOTE ---
Received pt from eneida KIM. Pt is AAOx3, [place], forgetful @ times. NSR on the monitor. On 3L NC O2 sat 95%, lungs diminished/coarse/crackles, productive cough, MEADOWS. Pt uses the urinal. PRN Melatonin given (see MAR). Pt is laying comfortable in bed
with call davis in reach.
[2023-11-25] MEDS: FLOMAX 0.400000000000000022 MG PO (20:29)
[2023-11-25] MEDS: ZYRTEC 5 MG PO (20:29)
[2023-11-25] MEDS: CRESTOR 40 MG PO (20:29)
[2023-11-25] MEDS: ZETIA 10 MG PO (20:30)
[2023-11-25] MEDS: MELATONIN 3 MG PO (20:39)
[2023-11-26] VITALS (9 sets, daily range): BP systolic 110–148; BP diastolic 59–80
[2023-11-26 03:56] LABS: Hematocrit 37.1 % (39.0-52.0); Hemoglobin 12.3 g/dL (13.0-18.0); Mean Corp Hgb Conc. 33.2 g/dL (33.0-37.0); Mean Corpuscular Hgb 30.5 pg (27.0-31.0); Mean Corpuscular Volume 92.1 fL (80.0-94.0); Mean Platelet Volume 9.2 fL (7.4-10.4); Platelet Count 130 10^3/uL (130-400); Red Blood Cell Count 4.03 10^6/uL (4.70-6.10); Red Cell Dist. Width 14.3 % (11.5-14.5); White Blood Cell Count 8.4 10^3/uL (4.8-10.8)
[2023-11-26 04:14] LABS: Blood Urea Nitrogen 36 mg/dl (9-20); Calcium 8.6 mg/dl (8.4-10.2); Carbon Dioxide 33 mmol/L (22-30); Chloride 98 mmol/L (98-107); Estimated Creatinine Clearance 74 ml/min; Glucose 111 mg/dl (70-99); Potassium 4.2 mmol/L (3.5-5.1); Sodium 135 mmol/L (135-145); eGFR > 60.00
[2023-11-26] MEDS: MIRALAX 17 GRAMS PO (07:52)
[2023-11-26] MEDS: REFRESH EYE DROPS (PF) 1 DROPS BOTH EYES (07:52)
[2023-11-26] MEDS: FLORINEF 0.200000000000000011 MG PO (07:53)
[2023-11-26] MEDS: ProAmatine 10 MG PO ×2 (07:53→12:51)
[2023-11-26] MEDS: DELTASONE 40 MG PO (07:54)
[2023-11-26] MEDS: ROBITUSSIN 200 MG PO ×2 (07:54→12:52)
[2023-11-26] MEDS: VITAMIN D3 (cholecalciferol) 50 MCG PO (07:54)
[2023-11-26] MEDS: MAG-TAB SR 84 MG PO (07:55)
[2023-11-26] MEDS: CELEBREX 100 MG PO (07:55)
[2023-11-26] MEDS: PROTONIX 40 MG PO (07:55)
[2023-11-26] MEDS: KCL 20 MEQ PO (07:55)
[2023-11-26] MEDS: SENOKOT 17.1999999999999993 MG PO (07:56)
[2023-11-26] MEDS: COLACE 100 MG PO (07:56)
[2023-11-26] MEDS: DUONEB 3 ML INH ×3 (08:02→16:34)
--- NOTE | 2023-11-26 09:08 | W.PN.PUL3 ---
Today's Communication / Plan
-
Weaned to 2L NC now, he is at baseline O2 use
Ongoing PT/OT, IS encouragement, OOB
Prednisone taper at discharge
Awaiting placement at [facility], following
Assessment
-
Patient is an 82-year-old male, with past history of ILD, chronic hypoxemia on baseline 2L NC following at [facility], [facility]RIC[facility] presented to the hospital after an episode of syncope. He was walking in his bedroom from the restroom when he passed out. Initial
head CT showing no acute findings. On arrival, he was notably hypoxemic with increased WOB, placed on HFNC. CT showing diffuse ILD, no comparative studies for eval of disease progression. We are consulted for eval.
Acute on chronic respiratory failure on midflow nasal cannula
Underlying pulm fibrosis on O2 2L as baseline with acute ILD exacerbation
Hypokalemia
Chronic hypercarbia, compensated 7.41/50
DNR
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
Orthostatic Hypotension
Colon Cancer, s/p R hemicolectomy
DM-II
Senile Dementia
Hypertension
Pulmonary Fibrosis
Not on antifibrotic meds
He follows with Dr Mendoza at [place] and told he has 25% lung function.
Chronic Hypoxemic Respiratory Failure, 2L at baseline, has needed up to 6L
Hepatic Abscess / Sepsis
BPH with LUTS
Infrarenal abdominal aortic aneurysm measuring 3.1 cm.
Ambulatory Dysfunction
Hearing loss
Former Smoker (Quit smoking in 1968)
Plan
Improving from the respiratory status.
Patient feels better. Asking when to go home.
Weaned to 2 L nasal cannula. He is back to baseline O2 amount
Wean down as able
Aspiration precautions-speech therapy following
Continue with nebulizers
Transition to prednisone 40 mg, decrease by 10 mg every 5 days to off.
Slow taper at discharge
Mucolytic's continue
Vest therapy-continue, he is benefiting from this.
Will need to discuss with case management specialist on Friday whether this is possible at [facility]--can be changed to manual PT
Continue IS/Acapella
CT chest 11/12/2023-personally reviewed-there are areas of bronchiectasis-hopefully this can qualify patient for vest therapy as an outpatient
Cultures reviewed
Repeat sputum culture-poor specimen
Can repeat sputum culture if able today
Observe off antibiotics
DVT prophylaxis-patient on Lovenox
GI prophylaxis-on pantoprazole
Long-term prognosis unfortunately quite poor-patient understands he has end-stage lung disease-not sure how much improvement we can accomplish
Patient usually follows with Dr Mendoza at [facility] --> patient no longer wants to follow with [facility] and wishes to transition to us.
Patient wishes to transition his pulmonary care to us at [facility].
Outpatient medical records will need to be obtained from [facility]-if vest therapy is considered I do believe some bronchiectasis is present on CT chest 10/2023
Hopefully discharge planning in the next 24 hours
Diagnostic Data
CXR 11-16-2023-Persistent generalized bilateral interstitial prominence, and mild hazy opacity, raising the possibility of an airspace/acinar component. Relatively stable compared to prior examination. No pneumothorax. No radiographically
demonstrable pleural effusion. The cardiomediastinal margins are stable.
CXR 11/09/23- No acute cardiopulmonary process. Persistent severe bilateral interstitial fibrosis similar to previous exams.
CXR 12-20 c/w below, some interim clearing of bilateral patchy infiltrates
CXR 12--23, no comparison films, portable, bilateral fibrotic changes, patchy areas of infiltrates of unknown chronicity, mildly elevated R diaphragm. R chest port-A-cath
CT CHEST 11/12/23- No evidence of central pulmonary embolism. Findings with prominent bilateral chronic interstitial/fibrotic changes. Some groundglass opacification bilaterally, nonspecific, possibly representing some acute pulmonary edematous
changes.
CT HEAD 11/12/23- No acute intracranial abnormalities. Findings compatible with diffuse cortical atrophy with nonspecific white matter changes. Chronic bilateral maxillary sinus inflammatory changes.
CT abd/p c/IV 08-04-23
COMPARISON: 07/27/2023.
IMPRESSION: Stable examination. No new or acute abnormality within the abdomen or pelvis. Stable chronic interstitial fibrotic changes. Stable small low-attenuation hepatic structures. Stable Subtle density along the dependent margin could represent
sludge. No gallbladder wall thickening appreciated. No bile duct dilatation. Stable small low-attenuation pancreatic mass. Stable nonobstructing renal calculi. Stable bilateral renal cystic structures. Mild to moderate colonic fecal burden. No
evidence of bowel obstruction. No bowel wall thickening. Stable infrarenal abdominal aortic aneurysm measuring 3.1 cm.
Subjective Data
-
Date of Service:
Date of Service: November 26, 2023
Chief Complaint: Pulmonary Follow Up and Dyspnea Follow Up
Subjective:
no new issues, still SOB
now on 2L NC, satting well >90%
Objective Data
Data Reviewed
Vital Signs / I&O / Oxygen:
Vital Signs
Temp Pulse Resp BP Pulse Ox
97.8 F 75 24 148/75 95
11/26/23 07:04 11/26/23 08:05 11/26/23 08:05 11/26/23 07:53 11/26/23 08:05
Intake and Output
11/25/23 11/26/23 11/27/23
06:59 06:59 06:59
Intake Total 250 / 250 210 / 210
Output Total 775 / 775 900 / 900 300 / 300
Balance -525 / -525 -690 / -690 -300 / -300
SaO2 95
Nasal Cannula flow liters per 2
minute
Physical Exam
General: Respiratory Distress (n), Comfortable, Poor Appetite and Other (NAD, chronically ill appearing)
HEENT: Normocephalic, Anicteric and Moist Mucous Membranes
Cardiovascular: S1-S2, Regular Rhythm and Peripheral Edema (Negative)
Respiratory: Wheeze (Forced expiratory), Crackles (Bilaterally), Rhonchi (negative), Non-Labored Respirations, Accessory Resp Muscle Use (n), Stridor (n) and Other (Prolonged expiratory time and diminished breath sounds )
GI: Soft, Non Distended and Non Tender
Neurology: Awake, Alert, No Motor Deficits and Other (confused at times, profoundly weak)
Skin: Warm, Dry, Good Color, Cyanosis (n), Jaundice (n) and Other (Clubbing seen)
Labs/Micro/Reports
Lab Data
11/26/23 03:39
11/26/23 03:39
--- NOTE | 2023-11-26 10:22 | W.PN.HOSP.TC ---
Today's Communication/Plan
-
Discharge to rehab
Assessment / Plan
Assessment / Plan
CVS: S1-S2 normal
Chest:rales, B/L
Abdomen: Soft, NT / Bowel sounds present
Extremities: No edema, normal pulses
TREASURY REPRESENTATIVE: Non focal exam
# Acute on chronic hypoxic respiratory failure. Underlying pulmonary fibrosis on home oxygen. Bronchiectasis. Acute interstitial lung disease exacerbation.
Continue Steroid taper
s/p Levaquin. Abx Dced per pulm. observe off abx. Procal negative.
Continue bronchodilators
Continue mucus clearance devices
Oxygen requirement down again to 2 L at rest.
# Syncope
Patient has a history of orthostatic hypotension
Non-CT troponin elevation
PT recommends skilled rehab
# Hypokalemia-replaced
Chronic orthostatic hypotension on midodrine and Florinef
COVID-19 infection 1 month ago
Stage IV colon cancer--recurrence from previous-completed chemotherapy November 2022
History of right hemicolectomy several years ago - Being followed by [facility]
Idiopathic pulmonary fibrosis
Hyperlipidemia-continue statin and Zetia
Prostate disease-continue Flomax
History of liver abscess with drainage
Diabetes by history-hemoglobin A1c 5.5
Dementia per history
Infrarenal abdominal aortic aneurysm 3.2 cm
Ambulatory dysfunction
Ex-smoker quit 1968
DVT prophylaxis-Lovenox
DNR status per discussion with patient and daughter at bedside
D/W RN at bed side
D/W Pulm
D/W Case management
Nursing glad that showed me yesterday because patient was complaining that he is tired of going through this. No suicidal ideation or plans. He was not quite ready for hospice. I spoke to patient today he said that he needed some answers which he
got and he is good with everything the way it is. He does not want to further discuss this.
11/25/23-Spoke to patient's daughter Farhana and updated regarding patient's condition. We discussed that he may set a new baseline with COVID infection and also with his pulmonary fibrosis. Patient may use increased amount of oxygen for ambulation.
Discharge cordination time 35 minutes
Anticipated Discharge: Today
Subjective/Interval History
-
Date of Service: November 26, 2023
Objective Data
-
Labs:
Laboratory Results
11/26/23
03:39
WBC 8.4
Hgb 12.3 L
Hct 37.1 L
Plt Count 130
Sodium 135
Potassium 4.2
Chloride 98
Carbon Dioxide 33 H
BUN 36 H
Creatinine 0.7
Glucose 111 H
Calcium 8.6
Vital Signs:
Vital Signs
Temp Pulse Resp BP Pulse Ox
97.8 F 75 24 137/74 95
11/26/23 07:04 11/26/23 08:05 11/26/23 08:05 11/26/23 08:00 11/26/23 08:05
I&O
11/25/23 11/26/23 11/27/23
06:59 06:59 06:59
Intake Total 250 / 250 210 / 210
Output Total 775 / 775 900 / 900 300 / 300
Balance -525 / -525 -690 / -690 -300 / -300
--- NOTE | 2023-11-26 10:26 | W.DS.TRANS ---
Addendum entered and electronically signed by Jose Linares MD 11/26/23 16:48:
Dictation- [id number]
Original Note:
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
-
Discharge Instructions:
Discharge Diagnosis/Procedures Syncope, acute on chronic hypoxic respiratory
failure, pneumonia, hypokalemia, chronic
orthostatic hypotension, colon cancer,
idiopathic pulmonary fibrosis, hyperlipidemia,
prostate disease, history of liver abscess,
diabetes, cognitive dysfunction, infrarenal
abdominal aortic aneurysm, ambulatory
dysfunction, DNR status
Diet Diabetic, Carb Controlled
Activity As tolerated,No strenuous activity
Driving Restrictions No driving
Other Services PT,OT
Instructions:
Stand-Alone Forms:
Changes to Home Medications: Yes
Discharge Medications:
DC Medications w/original date entered in [employer]
acetaminophen 325 mg tablet (Tylenol) 650 mg PO Q4HPRN PRN mild pain/fever 08/04/23
midodrine 10 mg tablet 10 mg PO TID Blood Pressure 08/04/23
peg 400-propylene glycol (PF) 0.4 %-0.3 % eye drops in a dropperette (Systane (PF)) 1 drp BOTH EYES BID Eye Condition 08/04/23
polyethylene glycol 3350 17 gram oral powder packet (Miralax) 17 g PO DAILY Constipation 08/04/23
rosuvastatin 40 mg tablet 40 mg PO HS High Cholesterol 08/04/23
sennosides 8.6 mg tablet (senna) 17.2 mg PO HS Constipation 08/04/23
simethicone 80 mg chewable tablet 80 mg PO Q6HPRN PRN abdominal discomfort 08/04/23
tamsulosin 0.4 mg capsule 0.4 mg PO HS Urinary Issue 08/04/23
celecoxib 100 mg capsule 100 mg PO DAILY Pain 08/05/23
cholecalciferol (vitamin D3) 50 mcg (2,000 unit) capsule (Vitamin D3) 50 mcg PO DAILY Supplement 08/05/23
docusate sodium 100 mg capsule (Colace) 100 mg PO DAILY Constipation 08/05/23
ezetimibe 10 mg tablet (Zetia) 10 mg PO HS High Cholesterol 08/05/23
fludrocortisone 0.1 mg tablet 0.2 mg PO DAILY fluid balance 08/05/23
fluticasone propionate 50 mcg/actuation nasal spray,suspension 1 spray intranasal Q6HPRN PRN allergies 08/05/23
levocetirizine 5 mg tablet 5 mg PO HS Allergies 08/05/23
magnesium oxide 400 mg PO DAILY Electrolyte Repletion 08/05/23
melatonin 3 mg tablet 3 mg PO HSPRN PRN sleep 08/05/23
potassium chloride 20 mEq tablet,extended release 20 meq PO DAILY Electrolyte Repletion 08/05/23
guaifenesin 100 mg/5 mL oral liquid 200 mg PO QID Congestion 11/12/23
pantoprazole 40 mg tablet,delayed release 40 mg PO DAILY Gastrointestinal Issue 11/12/23
ipratropium 0.5 mg-albuterol 3 mg (2.5 mg base)/3 mL nebulization soln 3 ml inhalation QID Lung/Breathing Issues #0 mL 11/24/23
prednisone 20 mg tablet 40 mg (2 x 20 mg) PO DAILY Lung/breathing issues #0 tabs 11/24/23
Home Medication Changes
new
Prednisone
Pending Results: No
--- NOTE | 2023-11-26 10:50 | CM ---
Patient who resides at [facility] with Dx Syncope, Acute on chronic hypoxic respiratory failure. O2 2L. PT & OT recommend skilled rehab. Per nurse assessment; forgetful. Covid test pending.
Spoke with Lucretia Burgos; request for [facility] SNF is approved, subacute level II, from 11/25 to 12/07. NR 12/08 to Lindy Trevino ph [phone], fax [phone]. Auth # [id number].
Spoke with patient's daughter Farhana; she agrees to d/c today and says her father will be happy to be back at [facility] as resides there. IMM completed and copy sent to her email at [email or web address].
Message from Kaylie, [facility]; they are able to accept the patient today and need 4pm transport time or later. Covid test is required. The for report [phone], fax [phone]. Alternate phone for report main # [phone] and
ask for B wing.
Plan [facility] SN[facility] today by ambulance.
--- NOTE | 2023-11-26 10:54 | PTCARENOTE ---
2 attemptsto call report mailbox full manager of engineering notified for another no
[2023-11-26 11:05] LABS: COVID-19 Antigen Negative (Negative)
--- NOTE | 2023-11-26 11:06 | PTCARENOTE ---
attempt to call [facility] [phone] no one pu mail box full
'
--- NOTE | 2023-11-26 12:00 | PTCARENOTE ---
again attempted to give report no one answers phone mail box full
--- NOTE | 2023-11-26 13:00 | PTCARENOTE ---
Report to Britt at [facility]
--- NOTE | 2023-11-26 16:53 | PTCARENOTE ---
Awaiting transport to [facility]
== END 2023-11-26 17:19 | DRG 196 ==
LOC: IMU 09:00
PROVIDERS: Hospitalist; Internal Medicine Critical Care Medicine; ADMITTING PHYSICIAN Hospitalist; CONSULT PHYSICIAN Internal Medicine; EMERGENCY PHYSICIAN Emergency Medicine; FAMILY PHYSICIAN Internal Medicine
DX: J84.114 Acute interstitial pneumonitis (principal); J96.21 Acute and chronic respiratory failure with hypoxia; J44.0 Chronic obstructive pulmonary disease with (acute) lower respiratory infection; J44.1 Chronic obstructive pulmonary disease with (acute) exacerbation; C18.9 Malignant neoplasm of colon, unspecified; J84.112 Idiopathic pulmonary fibrosis; I95.1 Orthostatic hypotension; E87.6 Hypokalemia; E78.00 Pure hypercholesterolemia, unspecified; E11.9 Type 2 diabetes mellitus without complications; F03.90 Unspecified dementia, unspecified severity, without behavioral disturbance, psychotic disturbance, mood disturbance, and anxiety; I71.43 Infrarenal abdominal aortic aneurysm, without rupture; R26.2 Difficulty in walking, not elsewhere classified; I10 Essential (primary) hypertension; Z66 Do not resuscitate; Z86.16 Personal history of COVID-19; Z79.84 Long term (current) use of oral hypoglycemic drugs; Z87.891 Personal history of nicotine dependence
CPT/HCPCS: 70450; 71045; 71275; 73660; 80048; 80053; 82805; 83036; 83735; 83880; 84145; 84484; 85025; 85027; 86140; 87070; 87205; 87811; 92610; 93005; 94640; 94669; 96361; 96374; 96375; 97110; 97116; 97163; 97167; 97530; 97535; 99285; Q9967

== ENCOUNTER 2023-12-17 12:57 | Emergency (ER) | payer OTHER, SELFPAY ==
[2023-12-17 13:05] VITALS: BP 114/77; BMI 23.6
[2023-12-17 13:24] LABS: % Basophils 0.3 % (0-2); % Eosinophils 1.6 % (0-6); % Immature Granulocytes 0.5 % (0-0.5); % Lymphocytes 6.4 % (20.5-51.1); % Monocytes 6.1 % (1.7-9.3); % Neutrophils 85.1 % (42.2-75.2); Absolute Eosinophils 0.1 10^3/uL (0-0.7); Absolute Lymphocytes 0.4 10^3/uL (1.2-3.4); Absolute Monocytes 0.4 10^3/uL (0.1-0.6); Absolute Neutrophils 5.2 10^3/uL (1.4-6.5); Hematocrit 41.9 % (39.0-52.0); Hemoglobin 13.7 g/dL (13.0-18.0); Mean Corp Hgb Conc. 32.7 g/dL (33.0-37.0); Mean Corpuscular Hgb 30.2 pg (27.0-31.0); Mean Corpuscular Volume 92.3 fL (80.0-94.0); Nucleated Red Blood Cells % 0 % (-); Platelet Count 139 10^3/uL (130-400); Red Blood Cell Count 4.54 10^6/uL (4.70-6.10); Red Cell Dist. Width 15.3 % (11.5-14.5); White Blood Cell Count 6.1 10^3/uL (4.8-10.8)
[2023-12-17 13:31] LABS: ALT (SGPT) 20 U/L (0-50); AST (SGOT) 19 U/L (17-59); Albumin 2.9 g/dl (3.5-5.0); Alkaline Phosphatase 65 U/L (38-126); Blood Urea Nitrogen 21 mg/dl (9-20); Calcium 8.5 mg/dl (8.4-10.2); Carbon Dioxide 35 mmol/L (22-30); Chloride 100 mmol/L (98-107); Estimated Creatinine Clearance 77 ml/min; Glucose 131 mg/dl (70-99); Potassium 4.8 mmol/L (3.5-5.1); Sodium 133 mmol/L (135-145); Total Bilirubin 0.8 mg/dl (0.2-1.3); Total Protein 5.6 g/dl (6.3-8.2); eGFR > 60.00
[2023-12-17 13:38] LABS: NT-proBNP 226 pg/ml
[2023-12-17 14:53] LABS: Troponin I 0.017 ng/ml
[2023-12-17 15:00] VITALS: BP 110/76
--- NOTE | 2023-12-17 15:08 | ED.GENMED ---
History of Present Illness
<Ham Kauffman MD - Last Filed: 12/17/23 16:15>
General
Chief Complaint: Breathing Problem
Source: patient and family
Exam Limitations: none
Time Seen by Provider: 12/17/23 13:49
Travel History
Have you had any contact with someone who has COVID-19?: No
Do you have any symptoms of coronavirus? Fever > 100 degrees, chills, cough, shortness of breath, sore throat, loss of taste or smell, muscle aches, or headache?: No
History of Present Illness
History of Present Illness:
Patient sent for low oxygen levels. Patient at his baseline from a respiratory standpoint. Denies chest pain new short of breath fever cough or any other acute symptoms. Patient chronically on 3 L nasal cannula. Usually pulse ox runs 93 to 94%.
Found to be hypoxic after rehabilitation
Past History
<Ham Kauffman MD - Last Filed: 12/17/23 16:15>
Past History
ED Past Medical History: Cancer (colon), COPD (pulmonary fibrosis), HTN, Hypercholesterolemia, NIDDM, Psychiatric (dementia) and Other (aortic aneurysm, BPH)
Social History
Tobacco: Non-smoker
Alcohol: None
Drug: None
Living: fpc
Review of Systems
<Ham Kauffman MD - Last Filed: 12/17/23 16:15>
Review of Systems
All Other Systems: Not applicable
Constitutional: Denies fever
Respiratory: Denies cough
Cardiac: Denies chest pain or syncope
Phy Exam
<Ham Kauffman MD - Last Filed: 12/17/23 16:15>
Physical Exam
Physical Exam:
GENERAL: Alert and oriented. Initially seems slightly lethargic when I walked in the room. Pulse ox was running about 70% on 5 L. Just prior to that his pulse ox apparently was in the 90s.
EYE: Orbits normal.
NECK: Supple, no significant adenopathy.
ENT: Pharynx without erythema
CARDIAC: Regular rate and rhythm without any obvious murmurs.
LUNGS: Dry crackles throughout
ABDOMEN: Soft, without focal tenderness or distention
NEUROLOGICAL: Alert and oriented , grossly non-focal
SKIN: Warm and dry, no rash or lesion, no discoloration, skin intact.
MUSCULOSKELETAL: No edema,no deformity.Good color
PSYCH: Normal and appropriate interaction.
Scores
<Pavel Peres DO - Last Filed: 12/17/23 18:16>
Heart Failure Risk
Heart Failure Risk Score: Not Applicable
Course
<Ham Kauffman MD - Last Filed: 12/17/23 16:15>
Orders/Labs/Results
Orders:
Orders
12/17/23 13:01
Cardiac Monitoring- Treatment ONCE
12/17/23 13:02
Electrocardiogram (*1) Urgent
Reason for Study: Shortness of Breath
EKG- Treatment ONCE
12/17/23 13:03
Complete Blood Count/With Diff Urgent
Comprehensive Metabolic Panel Urgent
Pro-BNP [NT-proBNP] Urgent
Troponin I Urgent
Comment: ADD ON
12/17/23 14:04
Add On- LAB Urgent
Tests Added?: troponin
12/17/23 14:10
CXR Port [CR Chest Portable - 1 View] Urgent
Comment:
Reason For Exam: hypoxia
Reason Study Needs to be Portable: Unable to Transport
12/17/23 14:25
CT Chest Pe Study Urgent
Comment:
Reason For Exam: hypoxia. pulm fibrosis
12/17/23 16:06
EKG [Electrocardiogram (*1)] Urgent
Reason for Study: Shortness of Breath
EKG- Treatment ONCE
12/17/23 16:37
Troponin I Urgent
Abnormal Lab Results
12/17/23
13:03
RBC 4.54 L 10^6/uL
(4.70-6.10)
MCHC 32.7 L g/dL
(33.0-37.0)
RDW 15.3 H %
(11.5-14.5)
Absolute Lymphs (auto) 0.4 L 10^3/uL
(1.2-3.4)
Neutrophils % 85.1 H %
(42.2-75.2)
Lymphocytes % 6.4 L %
(20.5-51.1)
Sodium 133 L mmol/L
(135-145)
Carbon Dioxide 35 H mmol/L
(22-30)
BUN 21 H mg/dl
(9-20)
Glucose 131 H mg/dl
(70-99)
Total Protein 5.6 L g/dl
(6.3-8.2)
Albumin 2.9 L g/dl
(3.5-5.0)
12/17/23 13:03
12/17/23 13:03
Vital Signs
Initial and Last Documented VS:
Initial Vital Signs
Temp Pulse Resp BP Pulse Ox
97.7 F 98 13 114/77 89
12/17/23 13:05 12/17/23 13:05 12/17/23 13:05 12/17/23 13:05 12/17/23 13:05
Last Documented Vital Signs
Temp Pulse Resp BP Pulse Ox
97.7 F 71 23 110/76 94
12/17/23 13:05 12/17/23 16:45 12/17/23 16:45 12/17/23 15:00 12/17/23 16:45
damaso;Pavel Peres DO - Last Filed: 12/17/23 18:16>
Orders/Labs/Results
Orders:
Orders
12/17/23 13:01
Cardiac Monitoring- Treatment ONCE
12/17/23 13:02
Electrocardiogram (*1) Urgent
Reason for Study: Shortness of Breath
EKG- Treatment ONCE
12/17/23 13:03
Complete Blood Count/With Diff Urgent
Comprehensive Metabolic Panel Urgent
Pro-BNP [NT-proBNP] Urgent
Troponin I Urgent
Comment: ADD ON
12/17/23 14:04
Add On- LAB Urgent
Tests Added?: troponin
12/17/23 14:10
CXR Port [CR Chest Portable - 1 View] Urgent
Comment:
Reason For Exam: hypoxia
Reason Study Needs to be Portable: Unable to Transport
12/17/23 14:25
CT Chest Pe Study Urgent
Comment:
Reason For Exam: hypoxia. pulm fibrosis
12/17/23 16:06
EKG [Electrocardiogram (*1)] Urgent
Reason for Study: Shortness of Breath
EKG- Treatment ONCE
12/17/23 16:37
Troponin I Urgent
Abnormal Lab Results
12/17/23
13:03
RBC 4.54 L 10^6/uL
(4.70-6.10)
MCHC 32.7 L g/dL
(33.0-37.0)
RDW 15.3 H %
(11.5-14.5)
Absolute Lymphs (auto) 0.4 L 10^3/uL
(1.2-3.4)
Neutrophils % 85.1 H %
(42.2-75.2)
Lymphocytes % 6.4 L %
(20.5-51.1)
Sodium 133 L mmol/L
(135-145)
Carbon Dioxide 35 H mmol/L
(22-30)
BUN 21 H mg/dl
(9-20)
Glucose 131 H mg/dl
(70-99)
Total Protein 5.6 L g/dl
(6.3-8.2)
Albumin 2.9 L g/dl
(3.5-5.0)
12/17/23 13:03
12/17/23 13:03
Vital Signs
Initial and Last Documented VS:
Initial Vital Signs
Temp Pulse Resp BP Pulse Ox
97.7 F 98 13 114/77 89
12/17/23 13:05 12/17/23 13:05 12/17/23 13:05 12/17/23 13:05 12/17/23 13:05
Last Documented Vital Signs
Temp Pulse Resp BP Pulse Ox
97.7 F 71 23 110/76 94
12/17/23 13:05 12/17/23 16:45 12/17/23 16:45 12/17/23 15:00 12/17/23 16:45
<Ham Kauffman MD - Last Filed: 12/17/23 16:15>
MDM/Problems Addressed
Differential Diagnosis Includes:
Patient with hypoxia despite 6 L nasal cannula. When changed to the nonrebreather however he immediately went up with pulse ox of 97 to 98%. I was suspicious it was either the oxygen on the wall or the nasal cannula tubing. When changing both of
these and returning to 3 L patient's pulse ox remained very steady at 96%. He also became more alert. I suspect is an equipment issue. No testing finding initially to support a more serious issue. His EKG does have some nonspecific changes in 1
and aVL likely not relevant however for completeness repeat troponin and EKG will be done. In addition a pulmonary emboli study will be done
<Ham Kauffman MD - Last Filed: 12/17/23 16:15>
*Radiology
Radiology exam reviewed: preliminary read by ED provider (Chronic fibrosis) and radiology read reviewed (Chronic fibrotic changes)
*Pulse Oximetry
Patient hypoxic: yes
*EKG
Interpreted by ED Provider?: Yes
Interpretation: abnormal
Comparison EKG: changes noted
Heart Rate: 97
Rate: normal
Rhythm: sinus
[place]: normal axis
Interval: normal interval
QRS Pattern: normal QRS
Ischemia: other (Questionable ST elevation in 1 and aVL although do not appear acute)
*Hand Tool Filer Interpretation
Rate: normal
Interpretation: normal
Heart Rate: 94
Rhythm: sinus
Data Reviewed
Review of Other/Old Records Reveals: Labs, Records, Radiology Studies and Testing
<Pavel Peres DO - Last Filed: 12/17/23 18:16>
*Critical Care Note
Total Time (30-74mins, 75-104mins- exclusive of procedures): Not Applicable
<Ham Kauffman MD - Last Filed: 12/17/23 16:15>
Update Note
Update Note:
Patient is remained stable with a pulse ox of 90% on 3 L nasal cannula. Repeat EKG normal sinus rhythm at 75 no acute changes. Await pulmonary emboli report and repeat troponin. If all stable patient can be discharged to follow-up
<Pavel Peres DO - Last Filed: 12/17/23 18:16>
Update Note
Update Note:
Patient is remained stable with a pulse ox of 90% on 3 L nasal cannula. Repeat EKG normal sinus rhythm at 75 no acute changes. Await pulmonary emboli report and repeat troponin. If all stable patient can be discharged to follow-up
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
ED Attending Note
<Ham Kauffman MD - Last Filed: 12/17/23 16:15>
-
Portions of this chart may have been created with voice recognition software.� Occasional wrong word or��sound alike� substitutions may have occurred due to the inherent limitations of voice recognition software.
Discharge Plan
Departure
Patient Disposition: Home (Routine Discharge)
Date of Disposition: 12/17/23
Time of Disposition: 17:53
Patient with high blood pressure during this ER visit?: No
Condition: Good
Discharge Problem:
Hypoxia, History of pulmonary fibrosis
Instructions: Shortness of Breath (Dyspnea) (DC)
Prescriptions:
No Action
sennosides [senna] 8.6 mg Tablet
17.2 mg PO HS
polyethylene glycol 3350 [Miralax] 17 gram Powder In Packet
17 g PO DAILY
tamsulosin 0.4 mg Capsule
0.4 mg PO HS
simethicone 80 mg Tablet,Chewable
80 mg PO Q6HPRN PRN (Reason: abdominal discomfort)
midodrine 10 mg Tablet
10 mg PO TID
Rx Instructions:
08/04/2023, hold for systolic BP greater than 150.
rosuvastatin 40 mg Tablet
40 mg PO HS
Systane (PF) 0.4-0.3 % Dropperette
1 drp BOTH EYES BID
melatonin 3 mg Tablet
3 mg PO HSPRN PRN (Reason: sleep)
docusate sodium [Colace] 100 mg Capsule
100 mg PO DAILY
celecoxib 100 mg Capsule
100 mg PO DAILY
fluticasone propionate 50 mcg/actuation Crowder,Suspension
1 spray INTRANASAL Q6HPRN PRN (Reason: allergies)
fludrocortisone 0.1 mg Tablet
0.2 mg PO DAILY
ezetimibe [Zetia] 10 mg Tablet
10 mg PO HS
cholecalciferol (vitamin D3) [Vitamin D3] 50 mcg (2,000 unit) Capsule
50 mcg PO DAILY
potassium chloride 20 mEq Tablet Extended Release
20 meq PO DAILY
magnesium oxide 400 mg magnesium Tablet
400 mg PO DAILY
guaifenesin 100 mg/5 mL liquid
200 mg PO QID
pantoprazole 40 mg tablet,delayed release (DR/EC)
40 mg PO DAILY
magnesium hydroxide [Milk of Magnesia] 400 mg/5 mL Suspension
2,400 mg PO [id number] PRN (Reason: if no bm by 2nd day)
bisacodyl [Dulcolax (bisacodyl)] 10 mg Suppository
10 mg RI DAILYPRN PRN (Reason: if no bm aftr mom)
Fleet Enema 19-7 gram/118 mL Enema
118 ml RI DAILYPRN PRN (Reason: if no bm aftr dulcolax)
loratadine [Claritin] 10 mg Tablet
10 mg PO HS
ipratropium-albuterol 0.5 mg-3 mg(2.5 mg base)/3 mL solution for nebulization
3 ml INHALATION R QID
prednisone 20 mg tablet
10 mg PO UD
Rx Instructions:
take 10mg daily for 7 days starting 12/15/23 then 5mg daily for 7 days starting 12/22/23
Referrals:
Marques Lambert MD [Family Provider] - Follow up in 2-3 days
Activity Restrictions/Additional Instructions:
As we discussed, I suspect his hypoxia was secondary to equipment issues. Currently he is oxygenating well on his 3 L nasal cannula
Please return with any concerns including shortness of breath recurrent hypoxia fever cough etc.
Interventions
Interventions:
*Risk Screen - Suicide Last Done: 12/17/23 13:05
*General Assessment Last Done: 12/17/23 13:05
*Neglect/Abuse Screening Last Done: 12/17/23 13:05
ED- Fall Risk Assessment Last Done: 12/17/23 13:14
*ED COVID-19 Vaccine History Last Done: 12/17/23 13:05
ED- Cardiac Assessment Last Done: 12/17/23 13:14
ED- Pulmonary Assessment Last Done: 12/17/23 13:14
Discharge Date and Time
Print Language: NEPALI
[2023-12-17 17:01] VITALS: BP 114/58
[2023-12-17 17:09] LABS: Troponin I 0.022 ng/ml
[2023-12-17 18:00] VITALS: BP 118/76
[2023-12-17 19:00] VITALS: BP 124/79
== END 2023-12-17 19:57 | disposition home or self-care (01) ==
LOC: EMR 12:57
PROVIDERS: Emergency Medicine; EMERGENCY PHYSICIAN Emergency Medicine; FAMILY PHYSICIAN Internal Medicine
DX: R09.02 Hypoxemia (principal); R53.83 Other fatigue; J84.112 Idiopathic pulmonary fibrosis; Z99.81 Dependence on supplemental oxygen
CPT/HCPCS: 99285; 71045; 71275; 80053; 83880; 84484; 85025; 93005; Q9967